=== PATIENT | male | born 1975 | race Caucasian/White ===

== ENCOUNTER 2017-08-04 22:19 | Emergency (ER) | payer OTHER ==
--- OUTSIDE RECORDS SUMMARY | 2017-08-04 22:23 | XMS REPORT ---
:1975 [facility] [address] [place] [address] Care Team Providers Name Role Phone Jenny RANKIN Primary Care Provider Unavailable PANCHO CRAWFORD Unavailable Unavailable Problems This patient has no known problems. Allergies, Adverse Reactions, Alerts This patient has no known allergies or adverse reactions. Medications This patient has no known medications. Results Test Description Test Time Test Comments Text Results Atomic Results Result Comments Valproic Acid (Depakote),S 2016-10-02 05:51:00 Test Item Value Reference Range Comments Valproic Acid (test code=VALP) 77.4 ug/mL 50.0-100.0 RPR, [id number] 12:49:00 Test Item Value Reference Range Comments RPR (test code=RPR) Non-Reactive Non-Reactive Thyroid Stimulating Hormone (TSH)2016-10-01 07:49:00 Test Item Value Reference Range Comments TSH (test code=TSH) 6.31 mIU/mL 0.270-4.200 Lipid [id number] 07:41:00 Test Item Value Reference Range Comments Cholesterol (test 162 mg/dL 0-200 code=CHOL) Triglycerides (test 231 mg/dL 9-200 code=TRIG) HDL (test code=HDL) 36 mg/dL 40-60 Chol/HDL (test 4.5 Ratio 0.0-5.0 code=CHOLPHDL) LDL, Calculated (test 80 0-130 (NOTE)RISK OF HEART code=LDLC) DISEASEPublished by [place] Heart AssociationAnalyte Optimal Boderline Increased RiskCHOL <200 200-239 >240TRIG <150 150-199 >200HDL Male: >60 <40HDL Female: >60 <50LDL <100 130-159 >160LDL NEAR OPTIMAL IS 100-129 VLDL (test code=VLDL) 46 mg/dL 5-40 LDL/HDL (test code=LDLPHDL) 2 [id number] 05:39:00 Test Item Value Reference Range Comments Amphetamine (test Negative Negative For diagnostic purposes code=AMPH) only, positive results should always be assessedin conjunctionwith the patient's medical history,clinical examination and otherfindings.To fulfill legal requirements, a more specific alternate chemical methodmust be used inorder to obtain a Confirmed analytical result. GC/MS is the preferred confirmatory method. Barbiturates (test Negative Negative code=SOL) Benzodiazepine (test Negative Negative code=GUALBERTO) Cocaine (test code=COCA) Negative Negative Methadone (test code=MTHD) Negative Negative Opiates (test code=OPIA) Negative Negative PCP (test code=PCP) Negative Negative Propoxyphene (test Negative Negative code=PROPOX) THC (test code=THC) Negative Negative Alcohol, Urine (test <0.01 g/dL 0.00-0.01 code=ETOHU) Alcohol/Ethanol, [id number] 05:31:00 Test Item Value Reference Range Comments Alcohol, Ethyl (test <0.01 g/dL 0.00-0.01 Intoxicated 0.080 g/dL or code=ETOH) more Comprehensive Metabolic [id number] 05:31:00 Test Item Value Reference Range Comments Sodium (test code=NA) 134 mmol/L 135-145 Potassium (test code=K) 4.4 mmol/L 3.5-5.1 Chloride (test code=CL) 97 mmol/L 98-105 Carbon Dioxide (test 25 mmol/L 22-29 code=CO2) Glucose (test code=GLU) 103 mg/dL 70-115 Blood Urea Nitrogen 14 mg/dL 6-20 (test code=BUN) Creatinine (test 1.3 mg/dL 0.7-1.2 code=CREAT) Calcium (test code=CA) 10.1 mg/dL 8.3-10.5 Prot Total (test 6.6 g/dL 6.4-8.3 code=TP) Albumin (test code=ALB) 4.7 g/dL 3.5-5.2 A/G Ratio (test 2.5 Ratio code=AGRATIO) Globulin (test 1.9 2.9-3.1 code=GLOB) Bili Total (test 0.2 mg/dL 0.1-0.9 code=TBIL) Alk Phos (test 47 U/L 40-129 code=APHOS) AST (test code=AST) 19 U/L 1-40 ALT (test code=ALT) 21 U/L 1-41 BUN/Creatinine Ratio 10.8 (test code=BCRATIO) Anion Gap (test 12 mmol/L 7-16 code=AGAP) Estimated GFR (test >60 eGFR (estimated Glomerular code=GFR) mL/min/1.73m2 Filtration Rate) is an estimated value,calculated from the patient's serum creatinine using the MDRD equation.It is NOT the patient's actual GFR. The eGFR provides a more clinicallyuseful measure of kidney disease than serum creatinine alone.This calculation takes sex and race into account, if the informationis provided. If the race is not provided, and the patient isAfrican-[place], multiply by 1.212. If sex is not provided, and thepatient is female, multiply by 0.742. Results for patients <18 years ofage have not been validated by the MDRD study and should be interpretedwith caution.eGFR Result Interpretation:eGFR > or=60 is in the Normal RangeeGFR < 60 may mean kidney diseaseeGFR < 15 may mean kidney failureRanges recommended by the National Kidney Foundation,http://nkdep.ni h.gov Urinalysis [id number] 05:30:00 Test Item Value Reference Range Comments Color (test code=COLOR) Yellow Yellow,Straw,Pl yellow Clarity (test code=CLAR) Clear Clear Specific [place] (test code=SPGR) 1.006 1.001-1.035 pH (test code=PH) 7.0 5.0-9.0 Ketone (test code=KET) Negative mg/dL Negative Glucose (test code=GLUCUR) Negative mg/dL Negative Protein (test code=PROT) Negative mg/dL Negative Bilirubin (test code=BILI) Negative mg/dL Negative Occult Blood (test code=UDOB) Negative Negative Urobilinogen (test code=UROB) 0.2 mg/dL 0.2-1.0 Nitrite (test code=NIT) Negative Negative Leuk Esterase (test code=LEUK) Negative Negative Micros Exam (test code=MEXAM) Not indicated CBC with [id number] 05:19:00 Test Item Value Reference Range Comments WBC (test code=WBC) 5.5 K/cumm 4.4-10.5 RBC (test code=RBC) 4.70 M/cumm 4.10-5.70 Hemoglobin (test code=HGB) 13.5 gm/dL 13.4-17.4 Hematocrit (test code=HCT) 40.1 % 38.7-52.0 MCV (test code=MCV) 85.2 fL 80-100 MCH (test code=MCH) 28.6 pg 27.0-32.5 MCHC (test code=MCHC) 33.6 g/dL 32.0-37.5 RDW (test code=RDW) 15.0 % 11.5-14.5 Platelet Count (test code=PLTCT) 195 K/cumm 140-440 MPV (test code=MPV) 7.4 fL Diff Method (test code=DIFFM) Auto Neutrophil (test code=NEUT) 52.8 % 36-70 Lymphocyte (test code=LYMPH) 31.2 % 12-44 Monocyte (test code=MONO) 13.7 % 0-11 Eosinophil (test code=EOS) 1.6 % 0-7 Basophil (test code=BASO) 0.7 % 0-2 Neutro Abs (test code=ANEUT) 2.9 K/cumm 1.6-7.4 Lymph Abs (test code=ALYMPH) 1.7 K/cumm 0.5-4.6 [place] Abs (test code=AMONO) 0.8 K/cumm 0.0-1.2 Eos Abs (test code=AEOS) 0.09 K/cumm 0.00-0.74 Baso Abs (test code=ABASO) 0.0 K/cumm 0.00-0.21 CBC with [id number] 10:15:00 Test Item Value Reference Range Comments WBC (test code=WBC) 5.7 K/cumm 4.4-10.5 RBC (test code=RBC) 4.96 M/cumm 4.10-5.70 Hemoglobin (test code=HGB) 14.2 gm/dL 13.4-17.4 Hematocrit (test code=HCT) 41.7 % 38.7-52.0 MCV (test code=MCV) 84.0 fL 80-100 MCH (test code=MCH) 28.6 pg 27.0-32.5 MCHC (test code=MCHC) 34.0 g/dL 32.0-37.5 RDW (test code=RDW) 15.5 % 11.5-14.5 Platelet Count (test code=PLTCT) 186 K/cumm 140-440 MPV (test code=MPV) 8.9 fL Diff Method (test code=DIFFM) Auto Neutrophil (test code=NEUT) 45.0 % 36-70 Lymphocyte (test code=LYMPH) 42.1 % 12-44 Monocyte (test code=MONO) 10.5 % 0-11 Eosinophil (test code=EOS) 1.5 % 0-7 Basophil (test code=BASO) 0.8 % 0-2 Neutro Abs (test code=ANEUT) 2.6 K/cumm 1.6-7.4 Lymph Abs (test code=ALYMPH) 2.4 K/cumm 0.5-4.6 [place] Abs (test code=AMONO) 0.6 K/cumm 0.0-1.2 Eos Abs (test code=AEOS) 0.09 K/cumm 0.00-0.74 Baso Abs (test code=ABASO) 0.1 K/cumm 0.00-0.21 RPR, [id number] 10:10:00 Test Item Value Reference Range Comments RPR (test code=RPR) Non-Reactive Non-Reactive Thyroid Stimulating Hormone (TSH)2016-09-05 09:52:00 Test Item Value Reference Range Comments TSH (test code=TSH) 2.86 mIU/mL 0.270-4.200 Lipid [id number] 09:44:00 Test Item Value Reference Range Comments Cholesterol (test 106 mg/dL 0-200 code=CHOL) Triglycerides (test 167 mg/dL 9-200 code=TRIG) HDL (test code=HDL) 25 mg/dL 40-60 Chol/HDL (test 4.2 Ratio 0.0-5.0 code=CHOLPHDL) LDL, Calculated (test 48 0-130 (NOTE)RISK OF HEART code=LDLC) DISEASEPublished by [place] Heart AssociationAnalyte Optimal Boderline Increased RiskCHOL <200 200-239 >240TRIG <150 150-199 >200HDL Male: >60 <40HDL Female: >60 <50LDL <100 130-159 >160LDL NEAR OPTIMAL IS 100-129 VLDL (test code=VLDL) 33 mg/dL 5-40 LDL/HDL (test code=LDLPHDL) 2 Valproic Acid (Depakote),[id number] 09:44:00 Test Item Value Reference Range Comments Valproic Acid (test code=VALP) 62.7 ug/mL 50.0-100.0 Comprehensive Metabolic [id number] 09:44:00 Test Item Value Reference Range Comments Sodium (test code=NA) 135 mmol/L 135-145 Potassium (test code=K) 4.7 mmol/L 3.5-5.1 Chloride (test code=CL) 100 mmol/L 98-105 Carbon Dioxide (test 25 mmol/L 22-29 code=CO2) Glucose (test code=GLU) 108 mg/dL 70-115 Blood Urea Nitrogen 17 mg/dL 6-20 (test code=BUN) Creatinine (test 1.1 mg/dL 0.7-1.2 code=CREAT) Calcium (test code=CA) 9.4 mg/dL 8.3-10.5 Prot Total (test 6.5 g/dL 6.4-8.3 code=TP) Albumin (test code=ALB) 4.6 g/dL 3.5-5.2 A/G Ratio (test 2.4 Ratio code=AGRATIO) Globulin (test 1.9 2.9-3.1 code=GLOB) Bili Total (test 0.4 mg/dL 0.1-0.9 code=TBIL) Alk Phos (test 46 U/L 40-129 code=APHOS) AST (test code=AST) 23 U/L 1-40 ALT (test code=ALT) 23 U/L 1-41 BUN/Creatinine Ratio 15.5 (test code=BCRATIO) Anion Gap (test 10 mmol/L 7-16 code=AGAP) Estimated GFR (test >60 eGFR (estimated Glomerular code=GFR) mL/min/1.73m2 Filtration Rate) is an estimated value,calculated from the patient's serum creatinine using the MDRD equation.It is NOT the patient's actual GFR. The eGFR provides a more clinicallyuseful measure of kidney disease than serum creatinine alone.This calculation takes sex and race into account, if the informationis provided. If the race is not provided, and the patient isAfrican-[place], multiply by 1.212. If sex is not provided, and thepatient is female, multiply by 0.742. Results for patients <18 years ofage have not been validated by the MDRD study and should be interpretedwith caution.eGFR Result Interpretation:eGFR > or=60 is in the Normal RangeeGFR < 60 may mean kidney diseaseeGFR < 15 may mean kidney failureRanges recommended by the National Kidney Foundation,http://nkdep.ni h.gov Comprehensive Metabolic [id number] 03:26:00 Test Item Value Reference Range Comments Sodium (test code=NA) 137 mmol/L 135-145 Potassium (test code=K) 4.6 mmol/L 3.5-5.1 Chloride (test code=CL) 101 mmol/L 98-105 Carbon Dioxide (test 23 mmol/L 22-29 code=CO2) Glucose (test code=GLU) 104 mg/dL 70-115 Blood Urea Nitrogen 22 mg/dL 6-20 (test code=BUN) Creatinine (test 1.2 mg/dL 0.7-1.2 code=CREAT) Calcium (test code=CA) 9.6 mg/dL 8.3-10.5 Prot Total (test 6.8 g/dL 6.4-8.3 code=TP) Albumin (test code=ALB) 4.8 g/dL 3.5-5.2 A/G Ratio (test 2.4 Ratio code=AGRATIO) Globulin (test 2.0 2.9-3.1 code=GLOB) Bili Total (test 0.4 mg/dL 0.1-0.9 code=TBIL) Alk Phos (test 47 U/L 40-129 code=APHOS) AST (test code=AST) 22 U/L 1-40 ALT (test code=ALT) 22 U/L 1-41 BUN/Creatinine Ratio 18.3 (test code=BCRATIO) Anion Gap (test 13 mmol/L 7-16 code=AGAP) Estimated GFR (test >60 eGFR (estimated Glomerular code=GFR) mL/min/1.73m2 Filtration Rate) is an estimated value,calculated from the patient's serum creatinine using the MDRD equation.It is NOT the patient's actual GFR. The eGFR provides a more clinicallyuseful measure of kidney disease than serum creatinine alone.This calculation takes sex and race into account, if the informationis provided. If the race is not provided, and the patient isAfrican-[place], multiply by 1.212. If sex is not provided, and thepatient is female, multiply by 0.742. Results for patients <18 years ofage have not been validated by the MDRD study and should be interpretedwith caution.eGFR Result Interpretation:eGFR > or=60 is in the Normal RangeeGFR < 60 may mean kidney diseaseeGFR < 15 may mean kidney failureRanges recommended by the National Kidney Foundation,http://nkdep.ni h.gov [id number] 03:06:00 Test Item Value Reference Range Comments Amphetamine (test Negative Negative For diagnostic purposes code=AMPH) only, positive results should always be assessedin conjunctionwith the patient's medical history,clinical examination and otherfindings.To fulfill legal requirements, a more specific alternate chemical methodmust be used inorder to obtain a Confirmed analytical result. GC/MS is the preferred confirmatory method. Barbiturates (test Negative Negative code=SOL) Benzodiazepine (test Negative Negative code=GUALBERTO) Cocaine (test code=COCA) Negative Negative Methadone (test code=MTHD) Negative Negative Opiates (test code=OPIA) Negative Negative PCP (test code=PCP) Negative Negative Propoxyphene (test Negative Negative code=PROPOX) THC (test code=THC) Negative Negative Alcohol, Urine (test <0.01 g/dL 0.00-0.01 code=ETOHU) Troponin [id number] 03:06:00 Test Item Value Reference Range Comments Troponin T (test code=SHAMIKA) <0.010 ng/mL 0.000-0.090 Urinalysis [id number] 02:57:00 Test Item Value Reference Range Comments Color (test code=COLOR) Yellow Yellow,Straw,Pl yellow Clarity (test code=CLAR) Clear Clear Specific [place] (test 1.028 1.001-1.035 code=SPGR) pH (test code=PH) 5.0 5.0-9.0 Ketone (test code=KET) 5 mg/dL Negative Glucose (test code=GLUCUR) Negative mg/dL Negative Protein (test code=PROT) Negative mg/dL Negative Bilirubin (test code=BILI) See IctoTest mg/dL Negative Occult Blood (test Negative Negative code=UDOB) Urobilinogen (test 4.0 mg/dL 0.2-1.0 code=UROB) Nitrite (test code=NIT) Negative Negative Leuk Esterase (test Small Negative code=LEUK) Ictotest (test Confirmed Negative Negative,Confirmed code=ICTOTEST) Negative Micros Exam (test Indicated code=MEXAM) Epithelial Cells (test None /LPF 0-30 code=EPI) WBC, Urine (test code=UWBC) 0-1 /HPF 0-5 RBC, Urine (test code=URBC) None Seen /HPF 0-5 Bacteria (test code=BACT) Few /HPF Crystals (test code=DERRICK) Few Calcium Oxalate /HPF CBC with [id number] 02:43:00 Test Item Value Reference Range Comments WBC (test code=WBC) 6.4 K/cumm 4.4-10.5 RBC (test code=RBC) 4.95 M/cumm 4.10-5.70 Hemoglobin (test code=HGB) 14.4 gm/dL 13.4-17.4 Hematocrit (test code=HCT) 42.0 % 38.7-52.0 MCV (test code=MCV) 84.8 fL 80-100 MCH (test code=MCH) 29.0 pg 27.0-32.5 MCHC (test code=MCHC) 34.2 g/dL 32.0-37.5 RDW (test code=RDW) 15.4 % 11.5-14.5 Platelet Count (test code=PLTCT) 214 K/cumm 140-440 MPV (test code=MPV) 8.4 fL Diff Method (test code=DIFFM) Auto Neutrophil (test code=NEUT) 48.5 % 36-70 Lymphocyte (test code=LYMPH) 38.9 % 12-44 Monocyte (test code=MONO) 10.1 % 0-11 Eosinophil (test code=EOS) 2.0 % 0-7 Basophil (test code=BASO) 0.5 % 0-2 Neutro Abs (test code=ANEUT) 3.1 K/cumm 1.6-7.4 Lymph Abs (test code=ALYMPH) 2.5 K/cumm 0.5-4.6 [place] Abs (test code=AMONO) 0.6 K/cumm 0.0-1.2 Eos Abs (test code=AEOS) 0.13 K/cumm 0.00-0.74 Baso Abs (test code=ABASO) 0.0 K/cumm 0.00-0.21 Valproic Acid (Depakote),[id number] 07:46:00 Test Item Value Reference Range Comments Valproic Acid (test code=VALP) 63.2 ug/mL 50.0-100.0 POC Glucose, [id number] 19:39:00 Test Item Value Reference Range Comments POC Glucose (test 204 mg/dL 70-115 If you consider your patient code=POCGLUC) critically ill, the Ismael Accu-Chek InformII metershould not be used for Glucose determinations.Draw a venous Glucose and send to the Main Lab for Analysis. Comprehensive Metabolic [id number] 05:27:00 Test Item Value Reference Range Comments Sodium (test code=NA) 135 mmol/L 135-145 Potassium (test code=K) 4.3 mmol/L 3.5-5.1 Chloride (test code=CL) 99 mmol/L 98-105 Carbon Dioxide (test 22 mmol/L 22-29 code=CO2) Glucose (test code=GLU) 112 mg/dL 70-115 Blood Urea Nitrogen (test 21 mg/dL 6-20 code=BUN) Creatinine (test 1.8 mg/dL 0.7-1.2 code=CREAT) Calcium (test code=CA) 9.3 mg/dL 8.3-10.5 Prot Total (test code=TP) 7.0 g/dL 6.4-8.3 Albumin (test code=ALB) 4.4 g/dL 3.5-5.2 A/G Ratio (test 1.7 Ratio code=AGRATIO) Globulin (test code=GLOB) 2.6 2.9-3.1 Bili Total (test 0.4 mg/dL 0.1-0.9 code=TBIL) Alk Phos (test 41 U/L 40-129 code=APHOS) AST (test code=AST) 19 U/L 1-40 ALT (test code=ALT) 20 U/L 1-41 BUN/Creatinine Ratio 11.7 (test code=BCRATIO) Anion Gap (test 14 mmol/L 7-16 code=AGAP) Estimated GFR (test 44 mL/min/1.73m2 eGFR (estimated Glomerular code=GFR) Filtration Rate) is an estimated value,calculated from the patient's serum creatinine using the MDRD equation.It is NOT the patient's actual GFR. The eGFR provides a more clinicallyuseful measure of kidney disease than serum creatinine alone.This calculation takes sex and race into account, if the informationis provided. If the race is not provided, and the patient is[place], multiply by 1.212. If sex is not provided, and thepatient is female, multiply by 0.742. Results for patients <18 years ofage have not been validated by the MDRD study and should be interpretedwith caution.eGFR Result Interpretation:eGFR > or=60 is in the Normal RangeeGFR < 60 may mean kidney diseaseeGFR < 15 may mean kidney failureRanges recommended by the National Kidney Foundation,http://nkdep.nih .gov [id number] 05:27:00 Test Item Value Reference Range Comments Amphetamine (test Negative Negative For diagnostic purposes code=AMPH) only, positive results should always be assessedin conjunctionwith the patient's medical history,clinical examination and otherfindings.To fulfill legal requirements, a more specific alternate chemical methodmust be used inorder to obtain a Confirmed analytical result. GC/MS is the preferred confirmatory method. Barbiturates (test Negative Negative code=SOL) Benzodiazepine (test Negative Negative code=GUALBERTO) Cocaine (test code=COCA) Negative Negative Methadone (test code=MTHD) Negative Negative Opiates (test code=OPIA) Negative Negative PCP (test code=PCP) Negative Negative Propoxyphene (test Negative Negative code=PROPOX) THC (test code=THC) Negative Negative Alcohol, Urine (test <0.01 g/dL 0.00-0.01 code=ETOHU) CBC with [id number] 05:08:00 Test Item Value Reference Range Comments WBC (test code=WBC) 7.0 K/cumm 4.4-10.5 RBC (test code=RBC) 4.54 M/cumm 4.10-5.70 Hemoglobin (test code=HGB) 12.5 gm/dL 13.4-17.4 Hematocrit (test code=HCT) 40.8 % 38.7-52.0 MCV (test code=MCV) 90.0 fL 80-100 MCH (test code=MCH) 27.6 pg 27.0-32.5 MCHC (test code=MCHC) 30.7 g/dL 32.0-37.5 RDW (test code=RDW) 14.4 % 11.5-14.5 Platelet Count (test code=PLTCT) 235 K/cumm 140-440 MPV (test code=MPV) 8.2 fL Diff Method (test code=DIFFM) Auto Neutrophil (test code=NEUT) 49.9 % 36-70 Lymphocyte (test code=LYMPH) 39.6 % 12-44 Monocyte (test code=MONO) 8.1 % 0-11 Eosinophil (test code=EOS) 1.7 % 0-7 Basophil (test code=BASO) 0.7 % 0-2 Neutro Abs (test code=ANEUT) 3.5 K/cumm 1.6-7.4 Lymph Abs (test code=ALYMPH) 2.8 K/cumm 0.5-4.6 [place] Abs (test code=AMONO) 0.6 K/cumm 0.0-1.2 Eos Abs (test code=AEOS) 0.12 K/cumm 0.00-0.74 Baso Abs (test code=ABASO) 0.1 K/cumm 0.00-0.21 Urinalysis [id number] 05:07:00 Test Item Value Reference Range Comments Color (test code=COLOR) Straw Yellow,Straw,Pl yellow Clarity (test code=CLAR) Clear Clear Specific [place] (test code=SPGR) 1.005 1.001-1.035 pH (test code=PH) 6.5 5.0-9.0 Ketone (test code=KET) Negative mg/dL Negative Glucose (test code=GLUCUR) Negative mg/dL Negative Protein (test code=PROT) Negative mg/dL Negative Bilirubin (test code=BILI) Negative mg/dL Negative Occult Blood (test code=UDOB) Negative Negative Urobilinogen (test code=UROB) 0.2 mg/dL 0.2-1.0 Nitrite (test code=NIT) Negative Negative Leuk Esterase (test code=LEUK) Negative Negative Micros Exam (test code=MEXAM) Not indicated
[2017-08-04 23:41] LABS: Absolute Lymphocytes (CBC) 2.5 K/uL (0.7-4.9); Absolute Monocytes 0.8 K/uL (0.1-1.3); Absolute Neutrophil 4.4 K/uL (1.8-8.0); Basophils % 0.6 % (0-1.3); Eosinophils % 1.4 % (0-4.4); Lymphocytes % 31.7 % (15.3-44.8); MCH 27.7 pg (27.0-35.0); MPV 8.4 fL (7.6-11.3); Monocytes % 10.3 % (3.3-12.3); RBC Red Blood Cell Count 4.75 M/uL (4.33-5.43)
[2017-08-05 00:03] LABS: Potassium 3.8 mEq/L (3.6-5.0)
[2017-08-05 00:09] LABS: Albumin 3.8 g/dL (3.2-5.5); Bilirubin Direct 0.1 mg/dL (0-0.2); Bilirubin Total 0.8 mg/dL (0.3-1.2); Protein, Total 6.6 g/dL (6.0-8.3)
--- NOTE | 2017-08-05 01:54 | EDPHYS ---
Physician Documentation [facility] Name: Bereket Gardner Age: 42 yrs Sex: Male : 1975 Arrival Date: 08/04/2017 Time: 22:28 Bed 27 Private MD: ED Physician Tariq Correia HPI: 08/05 01:50 This 42 yrs old Male presents to ER via EMS with complaints of Chest pain. pm1 01:50 The patient or guardian reports chest pain that is located primarily in the anterior pm1 chest wall, left. Onset: today. The pain does not radiate. Associated signs and symptoms: Pertinent negatives: abdominal pain, cough, nausea, palpitations, shortness of breath, vomiting. Duration: The patient or guardian reports a single episode, that is still ongoing. Modifying factors: the symptoms are aggravated by deep breath, palpation of area, Movement of left arm. Severity of pain: in the emergency department the pain is unchanged. Historical: - Allergies: 08/04 22:54 Aspirin; rk2 22:54 Ibuprofen; rk2 - PMHx: 22:54 Anemia; Anxiety; Bipolar disorder; enlarged heart and liver; High Cholesterol; rk2 Hypertension; Schizophrenia; - Immunization history:: Pneumococcal vaccine is not up to date, Flu vaccine is not up to date. - Social history:: Smoking status: Patient uses tobacco products, denies chronic smoking, but will smoke occasionally. ROS: 08/05 01:50 Constitutional: Negative for fever, chills, and weight loss, Eyes: Negative for injury, pm1 pain, redness, and discharge, ENT: Negative for injury, pain, and discharge, Neck: Negative for injury, pain, and swelling. Respiratory: Negative for shortness of breath, cough, wheezing, and pleuritic chest pain, Abdomen/GI: Negative for abdominal pain, nausea, vomiting, diarrhea, and constipation, Back: Negative for injury and pain, : Negative for injury, bleeding, discharge, and swelling, MS/Extremity: Negative for injury and deformity, Skin: Negative for injury, rash, and discoloration, Neuro: Negative for headache, weakness, numbness, tingling, and seizure. Cardiovascular: Positive for chest pain, of the left breast. Exam: 01:50 Constitutional: This is a well developed, well nourished patient who is awake, alert, pm1 and in no acute distress. Head/Face: Normocephalic, atraumatic. Eyes: Pupils equal round and reactive to light, extra-ocular motions intact. Lids and lashes normal. Conjunctiva and sclera are non-icteric and not injected. Cornea within normal limits. Periorbital areas with no swelling, redness, or edema. ENT: Nares patent. No nasal discharge, no septal abnormalities noted. Tympanic membranes are normal and external auditory canals are clear. Oropharynx with no redness, swelling, or masses, exudates, or evidence of obstruction, uvula midline. Mucous membranes moist. Neck: Trachea midline, no thyromegaly or masses palpated, and no cervical lymphadenopathy. Supple, full range of motion without nuchal rigidity, or vertebral point tenderness. No Meningismus. 01:50 Cardiovascular: Regular rate and rhythm with a normal S1 and S2. No gallops, murmurs, or rubs. Normal PMI, no JVD. No pulse deficits. Respiratory: Lungs have equal breath sounds bilaterally, clear to auscultation and percussion. No rales, rhonchi or wheezes noted. No increased work of breathing, no retractions or nasal flaring. Abdomen/GI: Soft, non-tender, with normal bowel sounds. No distension or tympany. No guarding or rebound. No evidence of tenderness throughout. Back: No spinal tenderness. No costovertebral tenderness. Full range of motion. Skin: Warm, dry with normal turgor. Normal color with no rashes, no lesions, and no evidence of cellulitis. MS/ Extremity: Pulses equal, no cyanosis. Neurovascular intact. Full, normal range of motion. 01:50 Chest/axilla: Inspection: normal, Palpation: tenderness, that is moderate, of the left breast, that totally reproduces the patient's complaints. 01:50 Neuro: Orientation: is normal, Motor: moves all fours, strength is normal, Gait: is steady, at a normal pace, without difficulty. Vital Signs: 08/04 22:42 BP 122 / 69; Pulse 66; Resp 17; Temp 98.4; Pulse Ox 98% on R/A; rk2 08/05 02:03 BP 128 / 53; Pulse 62; Resp 16; Pulse Ox 98% on R/A; rk2 MDM: 08/04 22:57 Patient medically screened. pm1 08/05 01:52 Data reviewed: vital signs. Data interpreted: Pulse oximetry: on room air is 98 %. pm1 Interpretation: normal. Counseling: I had a detailed discussion with the patient and/or guardian regarding: the historical points, exam findings, and any diagnostic results supporting the discharge/admit diagnosis, lab results, radiology results, the need for outpatient follow up, to return to the emergency department if symptoms worsen or persist or if there are any questions or concerns that arise at home. 08/04 23:15 Order name: Basic Metabolic Panel pm1 08/04 23:15 Order name: CBC with Diff pm1 08/04 23:15 Order name: LFT's pm1 08/04 23:15 Order name: Troponin (emerg Dept Use Only) pm1 08/04 23:43 Order name: CBC with Automated Diff; Complete Time: 01:03 EDMS 08/05 00:04 Order name: Basic Metabolic Panel; Complete Time: 01:03 EDMS 08/04 23:15 Order name: XRAY Chest (1 view) pm1 08/04 23:15 Order name: EKG; Complete Time: 23:16 pm1 08/04 23:15 Order name: Cardiac monitoring; Complete Time: 23:19 pm1 08/04 23:15 Order name: EKG - Nurse/Tech; Complete Time: 23:20 pm1 08/04 23:15 Order name: IV Saline Lock; Complete Time: 23:47 pm1 08/04 23:15 Order name: Labs collected and sent; Complete Time: 23:47 pm1 08/05 00:10 Order name: Liver (Hepatic) Function; Complete Time: 01:03 EDMS 08/05 00:10 Order name: Troponin (Emerg Dept Use Only); Complete Time: 01:03 EDMS 08/04 23:15 Order name: O2 Per Protocol; Complete Time: 23:19 pm1 08/04 23:15 Order name: O2 Sat Monitoring; Complete Time: 23:19 pm1 Administered Medications: No medications were administered Disposition: 08/05/17 01:53 Discharged to Home. Impression: Chest pain, unspecified. - Condition is Stable. - Discharge Instructions: Nonspecific Chest Pain, Chest Wall Pain. - Prescriptions for Cyclobenzaprine 10 mg Oral Tablet - take 1 tablet by ORAL route every 8 hours As needed; 30 tablet. - Medication Reconciliation Form, Thank You Letter, Antibiotic Education, Prescription Opioid Use form. - Follow up: Emergency Department; When: As needed; Reason: Worsening of condition. Follow up: Private Physician; When: 2 - 3 days; Reason: Recheck today's complaints, Continuance of care, Re-evaluation by your physician. - Problem is new. - Symptoms have improved. Addendum: 08/08/2017 06:21 Co-signature as Attending Physician, Tariq Correia MD. g s Signatures: Dispatcher [employer] EDMS Dandre Dale, TREE FELLER TREE FELLER pm1 Tariq Correia MD MD Lexie Cho, RN RN rk2
--- NOTE | 2017-08-05 01:54 | ER ---
Nurse's Notes [facility] Name: Bereket Gardner Age: 42 yrs Sex: Male : 1975 Arrival Date: 08/04/2017 Time: 22:28 Bed 27 Private MD: Diagnosis: Chest pain, unspecified Presentation: 08/04 22:40 Presenting complaint:. rk2 22:42 Presenting complaint: EMS states: Pt. comes from home by EMS c/o tremors after taking rk2 his medication... also states that he had sharp pain in the left side of his chest. Denies radiating pain... onset approx. 2 hours. Pt. also c/o CARTER. Transition of care: patient was not received from another setting of care. Onset of symptoms was August 04, 2017. Care prior to arrival: None. 22:42 Method Of Arrival: EMS: [facility] rk2 22:42 Acuity: ARIA 3 rk2 Triage Assessment: 22:40 General: Appears in no apparent distress. well developed, well nourished, Behavior is rk2 calm, cooperative. 22:40 Pain: Complains of pain in chest. Neuro: Level of Consciousness is alert, obeys rk2 commands, Oriented to person, place, time, situation. Cardiovascular: Rhythm is sinus rhythm. Respiratory: Airway is patent Respiratory effort is even, unlabored, Respiratory pattern is regular, symmetrical. Derm: Skin is pink, warm \T\ dry. Historical: - Allergies: 22:54 Aspirin; rk2 22:54 Ibuprofen; rk2 - PMHx: 22:54 Anemia; Anxiety; Bipolar disorder; enlarged heart and liver; High Cholesterol; rk2 Hypertension; Schizophrenia; - Immunization history:: Pneumococcal vaccine is not up to date, Flu vaccine is not up to date. - Social history:: Smoking status: Patient uses tobacco products, denies chronic smoking, but will smoke occasionally. Screenin:40 Abuse screen: Denies threats or abuse. rk2 22:40 Nutritional screening: No deficits noted. Tuberculosis screening: No symptoms or risk rk2 factors identified. Fall Risk None identified. Assessment: 23:40 Reassessment: Pt. resting in room \T\ this time... appears to be in no obvious distress. rk2 Nobody \T\ bedside with pt. Pt. given warm blanket. Voiced no other needs \T\ this time. 08/05 00:53 Reassessment: Pt. appears to be sleeping in room \T\ this time... No obvious distress. rk2 Pt. voiced no needs. Waiting for disposition. Vital Signs: 08/04 22:42 BP 122 / 69; Pulse 66; Resp 17; Temp 98.4; Pulse Ox 98% on R/A; rk2 08/05 02:03 BP 128 / 53; Pulse 62; Resp 16; Pulse Ox 98% on R/A; rk2 ED Course: 08/04 22:28 Patient arrived in ED. rk2 22:32 Dandre Dale NP is PHCP. pm1 22:32 Tariq Correia MD is Attending Physician. pm1 22:36 Lexie Cho RN is Primary Nurse. rk2 22:40 Patient has correct armband on for positive identification. Bed in low position. Call rk2 light in reach. 22:40 Arm band placed on. rk2 22:44 Triage completed. rk2 23:22 XRAY Chest (1 view) Sent. rk2 23:26 X-ray completed. Portable x-ray completed in exam room. Patient tolerated procedure kw well. 08/05 02:04 No provider procedures requiring assistance completed. IV discontinued. rk2 Administered Medications: No medications were administered Outcome: 01:53 Discharge ordered by . pm1 02:04 Discharged to home ambulatory. rk2 02:04 Condition: good 02:04 Discharge instructions given to patient, Prescriptions given X 1. 02:05 Patient left the ED. rk2 Signatures: Zita Ojeda Patrick, NP METALLURGICAL TECHNICIAN pm1 Lexie Cho, GEMINI RN rk2 Corrections: (The following items were deleted from the chart) 08/04 22:40 22:36 Presenting complaint: rk2 rk2 22:42 22:37 Presenting complaint: Presenting complaint: rk2 rk2 22:45 22:42 BP 122 / 69; Pulse 66bpm; Resp 17bpm; Pulse Ox 98% RA; rk2 rk2
[2017-08-05 02:09] VITALS: TEMP 98.4; O2SAT 98
[2017-08-05 02:10] VITALS: BP 128/53
--- NOTE | 2017-08-05 06:54 | RAD REPORT ---
EXAM DESCRIPTION: RAD - Chest Single View - 08/04/2017 11:31 pm CLINICAL HISTORY: Chest pain COMPARISON: June 28 TECHNIQUE: AP portable chest image was obtained 2319 hours . FINDINGS: Lung volumes are low. Lung base stranding is favored to be atelectasis rather than infiltr ate. Significant change of the lung parenchyma from comparison is not suspected. Heart and vasculatur e are normal. No measurable pleural effusion and no pneumothorax. No gross bony abnormality seen. No acute aortic findings suspected. IMPRESSION: Shallow inspiration film with lung base atelectasis. Repeat imaging with improved inspiratory effort could be performed if patient has any localizing symp toms for early left base pneumonia.
--- NOTE | 2017-08-05 07:34 | EKG ---
Test Date: 2017-08-04 Test Time: 22:51:27 Frothing Machine Operator: CHIP MEASUREMENT RESULTS: Intervals: Rate: 65 NC: 180 QRSD: 88 QT: 412 QTc: 428 [place]: P: 36 NC: 180 QRS: 64 T: 44 INTERPRETIVE STATEMENTS: Normal sinus rhythm Normal ECG Compared to ECG 05/19/2017 01:13:42 Sinus bradycardia no longer present Electronically Signed On 08-05-17 07:33:29 CDT by Eliecer Boyce
== END 2017-08-05 02:05 | disposition home or self-care (01) ==
LOC: ER 22:19
DX: R07.9 Chest pain, unspecified (principal); I10 Essential (primary) hypertension; Z72.0 Tobacco use
CPT/HCPCS: 36415; 71045; 80048; 80076; 84484; 85025; 93005; 99284

== ENCOUNTER 2018-03-19 09:39 | Emergency (ER) | payer OTHER ==
--- OUTSIDE RECORDS SUMMARY | 2018-03-19 09:42 | XMS REPORT ---
:1975 Author Organization [facility] Address [address] [place] [address] Care Team Providers Name Role Phone MADELEINE RANKIN Primary Care Provider Unavailable PANCHO CRAWFORD [...] Acid (test code=VALP) 77.4 ug/mL 50.0-100.0 RPR, [id number] 12:49:00 Test Item Value Reference Range Comments RPR (test code=RPR) Non-Reactive Non-Reactive Thyroid Stimulating Hormone (TSH)2016-10-01 07:49:00 Test Item Value Reference Range Comments TSH (test code=TSH) 6.31 mIU/mL 0.270-4.200 Lipid [id number] 07:41:00 Test Item Value Reference Range Comments Cholesterol (test 162 mg/dL 0-200 code=CHOL) Triglycerides (test 231 mg/dL 9-200 code=TRIG) HDL (test code=HDL) 36 mg/dL 40-60 Chol/HDL (test 4.5 Ratio 0.0-5.0 code=CHOLPHDL) LDL, Calculated (test 80 0-130 (NOTE)RISK OF HEART code=LDLC) DISEASEPublished by Danish Heart AssociationAnalyte Optimal Boderline Increased RiskCHOL <200 200-239 >240TRIG <150 150-199 >200HDL Male: >60 <40HDL Female: >60 <50LDL <100 130-159 >160LDL NEAR OPTIMAL IS 100-129 VLDL (test code=VLDL) 46 mg/dL 5-40 LDL/HDL (test code=LDLPHDL) 2 [id number] 05:39:00 Test Item Value Reference Range Comments Amphetamine (test code=AMPH) Negative Negative For diagnostic purposes only, positive results should always be assessedin conjunctionwith the patient's medical history,clinical examination and otherfindings.To fulfill legal requirements, a more specific alternate chemical methodmust be used inorder to obtain a Confirmed analytical result. GC/MS is the preferred confirmatory method. Barbiturates (test code=SOL) Negative Negative Benzodiazepine (test Negative Negative code=GUALBERTO) Cocaine (test code=COCA) Negative Negative Methadone (test code=MTHD) Negative Negative Opiates (test code=OPIA) Negative Negative PCP (test code=PCP) Negative Negative Propoxyphene (test Negative Negative code=PROPOX) THC (test code=THC) Negative Negative Alcohol, Urine (test <0.01 g/dL 0.00-0.01 code=ETOHU) Alcohol/Ethanol, [id number] 05:31:00 Test Item Value Reference Range Comments Alcohol, Ethyl (test <0.01 g/dL 0.00-0.01 Intoxicated 0.080 g/dL or code=ETOH) more Comprehensive Metabolic [id number] 05:31:00 Test Item Value Reference Range Comments [...] mmol/L 7-16 code=AGAP) Estimated GFR (test >60 mL/min/1.73m2 eGFR (estimated Glomerular code=GFR) Filtration Rate) is an estimated value,calculated from the patient's serum creatinine using the MDRD equation.It is NOT the patient's actual GFR. The eGFR provides a more clinicallyuseful measure of kidney disease than serum creatinine alone.This calculation takes sex and race into account, if the informationis provided. If the race is not provided, and the patient isAfrican-Danish, multiply by 1.212. If sex is not provided, and thepatient is female, multiply by 0.742. Results for patients <18 years ofage have not been validated by the MDRD study and should be interpretedwith caution.eGFR Result Interpretation:eGFR > or=60 is in the Normal RangeeGFR < 60 may mean kidney diseaseeGFR < 15 may mean kidney failureRanges recommended by the National Kidney Foundation,http://nkdep.nih .gov Urinalysis [id number] 05:30:00 Test Item Value Reference Range Comments Color (test code=COLOR) Yellow Yellow,Straw,Pl yellow Clarity (test code=CLAR) Clear Clear Specific [place] (test code=SPGR) 1.006 1.001-1.035 pH (test code=PH) [...] Exam (test code=MEXAM) Not indicated CBC with [id number] 05:19:00 Test Item Value Reference Range Comments [...] Lymph Abs (test code=ALYMPH) 1.7 K/cumm 0.5-4.6 Shannon Abs (test code=AMONO) 0.8 K/cumm 0.0-1.2 Eos Abs (test code=AEOS) 0.09 K/cumm 0.00-0.74 Baso Abs (test code=ABASO) 0.0 K/cumm 0.00-0.21 CBC with [id number] 10:15:00 Test Item Value Reference Range Comments [...] Lymph Abs (test code=ALYMPH) 2.4 K/cumm 0.5-4.6 Shannon Abs (test code=AMONO) 0.6 K/cumm 0.0-1.2 Eos Abs (test code=AEOS) 0.09 K/cumm 0.00-0.74 Baso Abs (test code=ABASO) 0.1 K/cumm 0.00-0.21 RPR, [id number] 10:10:00 Test Item Value Reference Range Comments RPR (test code=RPR) Non-Reactive Non-Reactive Thyroid Stimulating Hormone (TSH)2016-09-05 09:52:00 Test Item Value Reference Range Comments TSH (test code=TSH) 2.86 mIU/mL 0.270-4.200 Lipid [id number] 09:44:00 Test Item Value Reference Range Comments Cholesterol (test 106 mg/dL 0-200 code=CHOL) Triglycerides (test 167 mg/dL 9-200 code=TRIG) HDL (test code=HDL) 25 mg/dL 40-60 Chol/HDL (test 4.2 Ratio 0.0-5.0 code=CHOLPHDL) LDL, Calculated (test 48 0-130 (NOTE)RISK OF HEART code=LDLC) DISEASEPublished by Danish Heart AssociationAnalyte Optimal Boderline Increased RiskCHOL <200 200-239 >240TRIG <150 150-199 >200HDL Male: >60 <40HDL Female: >60 <50LDL <100 130-159 >160LDL NEAR OPTIMAL IS 100-129 VLDL (test code=VLDL) 33 mg/dL 5-40 LDL/HDL (test code=LDLPHDL) 2 Valproic Acid (Depakote),[id number] 09:44:00 Test Item Value Reference Range Comments Valproic Acid (test code=VALP) 62.7 ug/mL 50.0-100.0 Comprehensive Metabolic [id number] 09:44:00 Test Item Value Reference Range Comments [...] mmol/L 7-16 code=AGAP) Estimated GFR (test >60 mL/min/1.73m2 eGFR (estimated Glomerular code=GFR) Filtration Rate) is an estimated value,calculated from the patient's serum creatinine using the MDRD equation.It is NOT the patient's actual GFR. The eGFR provides a more clinicallyuseful measure of kidney disease than serum creatinine alone.This calculation takes sex and race into account, if the informationis provided. If the race is not provided, and the patient isAfrican-Danish, multiply by 1.212. If sex is not provided, and thepatient is female, multiply by 0.742. Results for patients <18 years ofage have not been validated by the MDRD study and should be interpretedwith caution.eGFR Result Interpretation:eGFR > or=60 is in the Normal RangeeGFR < 60 may mean kidney diseaseeGFR < 15 may mean kidney failureRanges recommended by the National Kidney Foundation,http://nkdep.nih .gov Comprehensive Metabolic [id number] 03:26:00 Test Item Value Reference Range Comments [...] mmol/L 7-16 code=AGAP) Estimated GFR (test >60 mL/min/1.73m2 eGFR (estimated Glomerular code=GFR) Filtration Rate) is an estimated value,calculated from the patient's serum creatinine using the MDRD equation.It is NOT the patient's actual GFR. The eGFR provides a more clinicallyuseful measure of kidney disease than serum creatinine alone.This calculation takes sex and race into account, if the informationis provided. If the race is not provided, and the patient isAfrican-Danish, multiply by 1.212. If sex is not provided, and thepatient is female, multiply by 0.742. Results for patients <18 years ofage have not been validated by the MDRD study and should be interpretedwith caution.eGFR Result Interpretation:eGFR > or=60 is in the Normal RangeeGFR < 60 may mean kidney diseaseeGFR < 15 may mean kidney failureRanges recommended by the National Kidney Foundation,http://nkdep.nih .gov [id number] 03:06:00 Test Item Value Reference Range Comments Amphetamine (test code=AMPH) Negative Negative For diagnostic purposes only, positive results should always be assessedin conjunctionwith the patient's medical history,clinical examination and otherfindings.To fulfill legal requirements, a more specific alternate chemical methodmust be used inorder to obtain a Confirmed analytical result. GC/MS is the preferred confirmatory method. Barbiturates (test code=SOL) Negative Negative Benzodiazepine (test Negative Negative code=GUALBERTO) Cocaine (test code=COCA) Negative Negative Methadone (test code=MTHD) Negative Negative Opiates (test code=OPIA) Negative Negative PCP (test code=PCP) Negative Negative Propoxyphene (test Negative Negative code=PROPOX) THC (test code=THC) Negative Negative Alcohol, Urine (test <0.01 g/dL 0.00-0.01 code=ETOHU) Troponin [id number] 03:06:00 Test Item Value Reference Range Comments Troponin T (test code=SHAMIKA) <0.010 ng/mL 0.000-0.090 Urinalysis [id number] 02:57:00 Test Item Value Reference Range Comments Color (test code=COLOR) Yellow Yellow,Straw,Pl yellow Clarity (test code=CLAR) Clear Clear Specific [place] (test 1.028 1.001-1.035 code=SPGR) pH (test code=PH) [...] code=DERRICK) Few Calcium Oxalate /HPF CBC with [id number] 02:43:00 Test Item Value Reference Range Comments [...] Lymph Abs (test code=ALYMPH) 2.5 K/cumm 0.5-4.6 Shannon Abs (test code=AMONO) 0.6 K/cumm 0.0-1.2 Eos Abs (test code=AEOS) 0.13 K/cumm 0.00-0.74 Baso Abs (test code=ABASO) 0.0 K/cumm 0.00-0.21 Valproic Acid (Depakote),[id number] 07:46:00 Test Item Value Reference Range Comments Valproic Acid (test code=VALP) 63.2 ug/mL 50.0-100.0 POC Glucose, [id number] 19:39:00 Test Item Value Reference Range Comments POC Glucose (test 204 mg/dL 70-115 If you consider your patient code=POCGLUC) critically ill, the Ismael Accu-Chek InformII metershould not be used for Glucose determinations.Draw a venous Glucose and send to the Main Lab for Analysis. Comprehensive Metabolic [id number] 05:27:00 Test Item Value Reference Range Comments [...] race is not provided, and the patient isAfrican-Danish, multiply by 1.212. If sex is not provided, and thepatient is female, multiply by 0.742. Results for patients <18 years ofage have not been validated by the MDRD study and should be interpretedwith caution.eGFR Result Interpretation:eGFR > or=60 is in the Normal RangeeGFR < 60 may mean kidney diseaseeGFR < 15 may mean kidney failureRanges recommended by the National Kidney Foundation,http://nkdep.nih .gov [id number] 05:27:00 Test Item Value Reference Range Comments Amphetamine (test code=AMPH) Negative Negative For diagnostic purposes only, positive results should always be assessedin conjunctionwith the patient's medical history,clinical examination and otherfindings.To fulfill legal requirements, a more specific alternate chemical methodmust be used inorder to obtain a Confirmed analytical result. GC/MS is the preferred confirmatory method. Barbiturates (test code=SOL) Negative Negative Benzodiazepine (test Negative Negative code=GUALBERTO) Cocaine (test code=COCA) Negative Negative Methadone (test code=MTHD) Negative Negative Opiates (test code=OPIA) Negative Negative PCP (test code=PCP) Negative Negative Propoxyphene (test Negative Negative code=PROPOX) THC (test code=THC) Negative Negative Alcohol, Urine (test <0.01 g/dL 0.00-0.01 code=ETOHU) CBC with [id number] 05:08:00 Test Item Value Reference Range Comments [...] Lymph Abs (test code=ALYMPH) 2.8 K/cumm 0.5-4.6 Shannon Abs (test code=AMONO) 0.6 K/cumm 0.0-1.2 Eos Abs (test code=AEOS) 0.12 K/cumm 0.00-0.74 Baso Abs (test code=ABASO) 0.1 K/cumm 0.00-0.21 Urinalysis [id number] 05:07:00 Test Item Value Reference Range Comments Color (test code=COLOR) Straw Yellow,Straw,Pl yellow Clarity (test code=CLAR) Clear Clear Specific [place] (test code=SPGR) 1.005 1.001-1.035 pH (test code=PH) [...]
[2018-03-19 10:32] LABS: Barbiturates NEGATIVE (NEGATIVE); Benzodiazepines NEGATIVE (NEGATIVE); Cocaine NEGATIVE (NEGATIVE); METHAMPHETAM NEGATIVE (NEGATIVE); Methadone NEGATIVE (NEGATIVE); Opiates NEGATIVE (NEGATIVE); Phencyclidine NEGATIVE (NEGATIVE); THC Cannibis NEGATIVE (NEGATIVE)
[2018-03-19 10:43] LABS: Urine Blood NEGATIVE (NEG); Urine Glucose NEGATIVE (NEG); Urine Protein NEGATIVE (NEG)
[2018-03-19 10:54] LABS: Absolute Lymphocytes (CBC) 2.2 K/uL (0.7-4.9); Absolute Monocytes 0.9 K/uL (0.1-1.3); Absolute Neutrophil 5.5 K/uL (1.8-8.0); Basophils % 0.6 % (0-1.3); Eosinophils % 1.4 % (0-4.4); Hematocrit 47.6 % (39.6-49.0); Lymphocytes % 25.1 % (15.3-44.8); MCH 30.7 pg (27.0-35.0); MCV 90.2 fL (80-100); MPV 8.6 fL (7.6-11.3); Monocytes % 10.8 % (3.3-12.3); RBC Red Blood Cell Count 5.28 M/uL (4.33-5.43)
[2018-03-19 10:58] LABS: Protime INR 1.01
[2018-03-19 12:05] LABS: ALT/SGPT 37 U/L (12-78); AST/SGOT 23 U/L (15-37); Albumin 3.9 g/dL (3.4-5.0); Alkaline Phosphatase 71 U/L (45-117); BUN Blood Urea Nitrogen 15 mg/dL (7-18); Bicarbonate 29 mmol/L (21-32); Bilirubin Direct 0.1 mg/dL (0-0.2); Bilirubin Total 0.4 mg/dL (0.2-1.0); Glucose Level 93 mg/dL (74-106); Potassium 4.2 mmol/L (3.5-5.1); Protein, Total 7.4 g/dL (6.4-8.2); Sodium Level 140 mmol/L (136-145)
--- NOTE | 2018-03-19 17:13 | EDPHYS ---
Physician Documentation [facility] Name: Bereket Gardner Age: 43 yrs Sex: Male : 1975 Arrival Date: 03/19/2018 Time: 09:43 Bed 18 Private MD: ED Physician Juan Rivas HPI: 03/19 11:51 This 43 yrs old Male presents to ER via EMS with complaints of Overdose, rn Suicidal Ideation. 11:52 Onset: The symptoms/episode began/occurred at an unknown time. Severity of symptoms:. rn The patient has experienced similar episodes in the past, chronically. 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 Denies suicidal or homicidal ideation. Has paranoid schizophrenia, takes meds, no apparent acute changes. Sister here and states she cannot watch him and worries about him, goes out late at night, and does drugs, and hangs out with wrong people so wants him admitted to rehab.. Historical: - Allergies: 09:52 Aspirin; sv 09:52 Ibuprofen; sv - PMHx: 09:52 Anemia; Anxiety; Bipolar disorder; enlarged heart and liver; High Cholesterol; sv Hypertension; Schizophrenia; - Immunization history:: Adult Immunizations up to date, Flu vaccine is not up to date. - Social history:: Smoking status: Patient/guardian denies using tobacco, Patient/guardian denies using alcohol, street drugs. - Ebola Screening: : No symptoms or risks identified at this time. - Family history:: not pertinent. - Hospitalizations: : No recent hospitalization is reported. ROS: 11:52 Constitutional: Negative for fever, chills, and weight loss, Eyes: Negative for injury, rn pain, redness, and discharge, ENT: Negative for injury, pain, and discharge, Cardiovascular: Negative for chest pain, palpitations, and edema, Respiratory: Negative for shortness of breath, cough, wheezing, and pleuritic chest pain, Abdomen/GI: Negative for abdominal pain, nausea, vomiting, diarrhea, and constipation, MS/Extremity: Negative for injury and deformity, Skin: Negative for injury, rash, and discoloration, Neuro: Negative for headache, weakness, numbness, tingling, and seizure, Psych: Negative for suicide ideation, homicidal ideation, + hallucinations Exam: 11:52 Constitutional: This is a well developed, well nourished patient who is awake, alert, rn and in no acute distress. Head/Face: Normocephalic, atraumatic. Eyes: Pupils equal round and reactive to light, extra-ocular motions intact. Lids and lashes normal. Conjunctiva and sclera are non-icteric and not injected. Cornea within normal limits. Periorbital areas with no swelling, redness, or edema. Cardiovascular: Regular rate and rhythm with a normal S1 and S2. No gallops, murmurs, or rubs. Normal PMI, no JVD. No pulse deficits. Respiratory: Lungs have equal breath sounds bilaterally, clear to auscultation and percussion. No rales, rhonchi or wheezes noted. No increased work of breathing, no retractions or nasal flaring. Abdomen/GI: Soft, non-tender, with normal bowel sounds. No distension or tympany. No guarding or rebound. No evidence of tenderness throughout. Skin: Warm, dry with normal turgor. Normal color with no rashes, no lesions, and no evidence of cellulitis. MS/ Extremity: Pulses equal, no cyanosis. Neurovascular intact. Full, normal range of motion. Equal circumference. Neuro: Awake and alert, GCS 15, oriented to person, place, time, and situation. Cranial nerves II-XII grossly intact. Motor strength 5/5 in all extremities. Sensory grossly intact. Cerebellar exam normal. Normal gait. Vital Signs: 09:52 BP 100 / 84; Pulse 75; Resp 16; Temp 97.8; Pulse Ox 99% ; Weight 61.23 kg; Height 5 ft. sv 5 in. (165.10 cm); 12:47 BP 112 / 79; Pulse 74; Resp 18; Pulse Ox 99% on R/A; aj 16:02 BP 109 / 75; Pulse 78; Resp 18; Pulse Ox 99% on R/A; aj 18:39 BP 113 / 78; Pulse 79; Resp 16; Pulse Ox 98% on R/A; aj 09:52 Body Mass Index 22.46 (61.23 kg, 165.10 cm) sv MDM: 09:53 Patient medically screened. rn 17:08 Differential diagnosis: depression, psychosis secondary to non-compliance. Data rn reviewed: vital signs, nurses notes, lab test result(s), and as a result, I will admit patient. Counseling: I had a detailed discussion with the patient and/or guardian regarding: the historical points, exam findings, and any diagnostic results supporting the discharge/admit diagnosis, lab results, the need to transfer to another facility. ED course: Accepted for transfer to [facility] . 03/19 10:00 Order name: Acetaminophen; Complete Time: 12:44 rn 03/19 10:00 Order name: Basic Metabolic Panel; Complete Time: 12:44 rn 03/19 10:00 Order name: CBC with Diff; Complete Time: 12:44 rn 03/19 10:00 Order name: ETOH Level; Complete Time: 12:44 rn 03/19 10:00 Order name: Hepatic Function; Complete Time: 12:44 rn 03/19 10:00 Order name: PT-INR; Complete Time: 12:44 rn 03/19 10:00 Order name: Ptt, Activated; Complete Time: 12:44 rn 03/19 10:00 Order name: Salicylate; Complete Time: 12:44 rn 03/19 10:00 Order name: Urine Drug Screen; Complete Time: 12:44 rn 03/19 10:00 Order name: EKG; Complete Time: 10: rn 03/19 10:00 Order name: EKG - Nurse/Tech; Complete Time: 10:28 rn 03/19 10:00 Order name: IV Saline Lock; Complete Time: 12:13 rn 03/19 10:24 Order name: Urine Dipstick--Ancillary (enter results); Complete Time: 12:44 eb 03/19 15:02 Order name: Diet Regular; Complete Time: 15:02 aj 03/19 10:00 Order name: Labs collected and sent; Complete Time: 12:13 rn 03/19 10:00 Order name: Urine Dipstick-Ancillary (obtain specimen); Complete Time: 10:28 rn Administered Medications: No medications were administered Disposition: 03/19/18 17:13 Transfer ordered to [facility]. Diagnosis is Schizophrenia, unspecified. - Reason for transfer: Higher level of care. - Accepting physician is . - Condition is Stable. - Problem is new. - Symptoms have improved. Signatures: [facility] Sheryl Reeves RN Juan Segal MD MD rn Davies, Jonathon, RN RN jd3 Corrections: (The following items were deleted from the chart) 19:41 17:13 03/19/2018 17:13 Transfer ordered to Psych Facility. Diagnosis is Schizophrenia, jd3 unspecified. Reason for transfer: Higher level of care. Accepting physician is . Condition is Stable. Problem is new. Symptoms have improved. rn
--- NOTE | 2018-03-19 17:13 | ER ---
Nurse's Notes [facility] Name: Bereket Gardner Age: 43 yrs Sex: Male : 1975 Arrival Date: 03/19/2018 Time: 09:43 Bed 18 Private MD: Diagnosis: Schizophrenia, unspecified Presentation: 03/19 09:37 Presenting complaint: EMS states: pt called PD and told them he took "a bottle of sv Depakote, Remeron, Vistaril." and then the pt told EMS he only took about 4 pills of each. Pt told me that he only took his medications as prescribed and not overdose on them, denies suicidal ideation or homicidal ideation. A\\T\\O x4, BS-95 BP 124/86. Transition of care: patient was not received from another setting of care. Onset of symptoms was March 18, 2018. Risk Assessment: Do you want to hurt yourself or someone else? Patient reports no desire to harm self or others. Initial Sepsis Screen: Does the patient meet any 2 criteria? No. Patient's initial sepsis screen is negative. Does the patient have a suspected source of infection? No. Patient's initial sepsis screen is negative. Care prior to arrival: None. 09:37 Method Of Arrival: EMS: [facility] sv 09:37 Acuity: ARIA 2 sv Triage Assessment: 09:37 General: Appears in no apparent distress. comfortable, Behavior is calm, cooperative, sv appropriate for age. Pain: Denies pain. EENT: No signs and/or symptoms were reported regarding the EENT system. Neuro: Level of Consciousness is awake, alert, obeys commands, Oriented to person, place, time, situation, Moves all extremities. Full function Gait is steady, Speech is normal. Respiratory: Respiratory effort is even, unlabored, Respiratory pattern is regular, symmetrical. GI: No signs and/or symptoms were reported involving the gastrointestinal system. : No signs and/or symptoms were reported regarding the genitourinary system. Derm: Skin is normal. Musculoskeletal: No signs and/or symptoms reported regarding the musculoskeletal system. Historical: - Allergies: 09:52 Aspirin; sv 09:52 Ibuprofen; sv - PMHx: 09:52 Anemia; Anxiety; Bipolar disorder; enlarged heart and liver; High Cholesterol; sv Hypertension; Schizophrenia; - Immunization history:: Adult Immunizations up to date, Flu vaccine is not up to date. - Social history:: Smoking status: Patient/guardian denies using tobacco, Patient/guardian denies using alcohol, street drugs. - Ebola Screening: : No symptoms or risks identified at this time. - Family history:: not pertinent. - Hospitalizations: : No recent hospitalization is reported. Screenin:09 Abuse screen: Denies threats or abuse. Denies injuries from another. Nutritional aj screening: No deficits noted. Tuberculosis screening: No symptoms or risk factors identified. Fall Risk None identified. Assessment: 10:09 General: Appears in no apparent distress. comfortable, Behavior is calm, cooperative, aj appropriate for age. Pain: Denies pain. Neuro: Level of Consciousness is awake, alert, obeys commands, Oriented to person, place, time, situation, Appropriate for age. Respiratory: Airway is patent Respiratory effort is even, unlabored, Respiratory pattern is regular, symmetrical. GI: Abdomen is flat, Patient currently denies normal bowel habits. Derm: Skin is intact, is healthy with good turgor, Skin is pink, warm \\T\\ dry. normal. 10:39 Reassessment: Patient's sister arrived and stated "He is mentally ill and needs help. aj He needs to be in a rehab or something. They have put him in a detention but he doesn't follow their rules so they kick him out. He went and got his medications from my dad's house the other day, I don't know if he took any of them. He told me last Friday that he doesn't want to be around anymore. 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 He didn't tell them what he said to me last Friday.". 10:47 Reassessment: Patient's sister approached nurses station and stated "I'm going to have aj to leave soon, I take care of my dad and he is home alone." Patient's sister informed that I spoke with the physician and told him she was waiting in the room to speak with him. Informed her that the physician was currently with another patient and would be in to speak with her as soon as possible. 14:25 Reassessment: [facility]. bp 15:27 Reassessment: Patient appears in no apparent distress at this time. No changes from aj previously documented assessment. Patient and/or family updated on plan of care and expected duration. Pain level reassessed. Patient is alert, oriented x 3, equal unlabored respirations, skin warm/dry/pink. Patient denies pain at this time. 16:02 Reassessment: Patient provided with meal tray. Asked to use phone at nurses station to aj call family. 18:10 Reassessment: Patient stated "I'm going to step outside and look for my sister, she is aj coming up here to see me before I go." Patient urged to remain in ER. Patient chose to step outside. Denies suicidal or homicidal ideations at this time. 18:39 Reassessment: Patient appears in no apparent distress at this time. No changes from aj previously documented assessment. Patient and/or family updated on plan of care and expected duration. Pain level reassessed. Patient is alert, oriented x 3, equal unlabored respirations, skin warm/dry/pink. Patient returned to room and is watching TV in NAD. Patient denies pain at this time. 19:20 Reassessment: Patient appears in no apparent distress at this time. No changes from jd3 previously documented assessment. Patient and/or family updated on plan of care and expected duration. Pain level reassessed. Patient is alert, oriented x 3, equal unlabored respirations, skin warm/dry/pink. 19:40 Reassessment: report given to [facility]. jd3 Psych: 09:54 Subjective: Delusions are synagogue, Hallucinations are auditory, visual, Denies sv suicidal and homicidal ideation. Pt states "I see people and the devil talks to me but God is going to get me through it." Pt stated that he has been seeing his PCP Dr Rodríguez in [place] and she told him to come to the ER and then the Mental Health deputy will take him to [facility] to be admitted. Pt received an Invega shot yesterday and he just knows he needs to get help. Objective: Patient is cooperative, Speech is normal, Affect is appropriate. Interventions: Patient placed in hospital gown. Suicide Risk Assessment: Sad Person Scale: Sex of patient: Male: Score 1 point. Age of patient: Score 0 point if patient falls outside of specified age parameters. Depression: Score 0 point if signs of depression are not present. Substance Abuse: Score 0 point if patient does not abuse alcohol or drugs. Rational Thinking: Score 0 point if patient has rational thinking. Social Support: Score 1 point if social support is lacking and/or unavailable. Organized Plan: Score 0 if patient did not have an organized plan in place. Relationship: Score 1 point if patient is , , , or for a single male Chronic Sickness: Score 1 point if patient has illness, chronic, debilitating, or severe. TOTAL POINTS: If total points are 3-4, proposed clinical action is close follow-up/consider hospitalization. Pt denies substance abuse. Commitment: Patient will be a voluntary commitment. 19:38 Safety Checks: Personal items have not been removed. Door is open. No visitors are jd3 present at this time. sitter present. Overdose: 09:53 Patient took Depakote, Remeron, and Vistaril as prescribed and did not take any more sv than what was prescribed. Vital Signs: 09:52 BP 100 / 84; Pulse 75; Resp 16; Temp 97.8; Pulse Ox 99% ; Weight 61.23 kg; Height 5 ft. sv 5 in. (165.10 cm); 12:47 BP 112 / 79; Pulse 74; Resp 18; Pulse Ox 99% on R/A; aj 16:02 BP 109 / 75; Pulse 78; Resp 18; Pulse Ox 99% on R/A; aj 18:39 BP 113 / 78; Pulse 79; Resp 16; Pulse Ox 98% on R/A; aj 09:52 Body Mass Index 22.46 (61.23 kg, 165.10 cm) sv ED Course: 09:43 Patient arrived in ED. aa5 09:48 Triage completed. sv 09:52 Arm band placed on Patient placed in an exam room, on a stretcher, on pulse oximetry. sv 09:53 Juan Rivas MD is Attending Physician. rn 09:55 Warm blanket given. Head of bed elevated. sv 10:08 Jannie Najera, GEMINI is Primary Nurse. aj 10:09 Patient has correct armband on for positive identification. Placed in gown. Call light aj in reach. Side rails up X 1. Pulse ox on. NIBP on. 10:11 Report given to Jannie SINGLETARY. sv 10:26 Urine collected: clean catch specimen, clear. mh5 10:27 Urine Drug Screen Sent. mh5 10:27 Urine Dipstick--Ancillary (enter results) Sent. [facility] 10:45 Notified ED physician of other Patient's family is in room waiting to speak with him. aj 11:13 EKG done, by senior quality technician. reviewed by Juan Rivas MD. at1 13:15 called and spoke with Sugey at the [facility]/ she will page out a screener on eb call to come screen the patient for potential transfer . 13:[address] [facility] Called and said she would be on her way shortly. eb 14:58 faxed patient records to the following facilities in the attempt to initiate a transfer eb : [facility], [facility]. [facility], [facility], [facility], [facility], [facility], [facility], [facility], [facility], [facility] and [facility]. 15:37 refaxed patient information to [facility] to a different fax number at [phone]. eb 15:38 connected the [facility] nurse with ED nurse for patient transfer consultation. eb 15:39 Report given to Mary Jane at [facility]. aj 18:39 No provider procedures requiring assistance completed. Patient did not have IV access aj during this emergency room visit. Administered Medications: No medications were administered Outcome: 17:13 ER care complete, transfer ordered by . rn 19:37 Transferred by ground EMS Note: transferred to [facility] jd3 19:37 Condition: stable 19:37 Instructed on the need for transfer, Demonstrated understanding of instructions. 19:41 Patient left the ED. jd3 Signatures: Sheryl Chaves, Jannie Saleem RN, RN RN aj Nieto, Roman, MD MD rn Calderon, Audri, RN RN aa5 Gonzales, Amanda, paper stripper EKG Tat1 Glenny Stover Jonathon, RN RN jd3 Peltier, Brian RN Tia Montanez eb
[2018-03-19 19:46] VITALS: TEMP 97.8
[2018-03-19 19:49] VITALS: BP 113/78; O2SAT 98
--- NOTE | 2018-03-19 22:08 | EKG ---
Test Date: 2018-03-19 Test Time: 10:29:24 [employer] Serv[employer]: LIN MEASUREMENT RESULTS: Intervals: Rate: 66 NM: 158 QRSD: 84 QT: 388 QTc: 406 [place]: P: 38 NM: 158 QRS: 81 T: 58 INTERPRETIVE STATEMENTS: Normal sinus rhythm Normal ECG Compared to ECG 08/04/2017 22:51:27 No significant changes Electronically Signed On 03-19-18 22:08:19 CDT by Eliecer Boyce
== END 2018-03-19 19:41 ==
LOC: ER 09:39
DX: F20.9 Schizophrenia, unspecified (principal); I10 Essential (primary) hypertension; Z88.6 Allergy status to analgesic agent
CPT/HCPCS: 36415; 80048; 80076; 80307; 80320; 80329; 81003; 85025; 85610; 85730; 93005; 99285

== ENCOUNTER 2018-04-02 21:11 | Emergency (ER) | payer OTHER ==
--- OUTSIDE RECORDS SUMMARY | 2018-04-02 21:14 | XMS REPORT ---
:1975 [facility] Address [address] [place] [address] [address]. Zun[address] [place] [address] Care Team Providers Name Role Phone MADELEINE [...] Acid (test code=VALP) 77.4 ug/mL 50.0-100.0 RPR, [id number] 12:49:00 Test Item Value Reference Range Comments RPR (test code=RPR) Non-Reactive Non-Reactive Thyroid Stimulating Hormone (TSH)2016-10-01 07:49:00 Test Item Value Reference Range Comments TSH (test code=TSH) 6.31 mIU/mL 0.270-4.200 Lipid [id number] 07:41:00 Test Item Value Reference Range Comments Cholesterol (test 162 mg/dL 0-200 code=CHOL) Triglycerides (test 231 mg/dL 9-200 code=TRIG) HDL (test code=HDL) 36 mg/dL 40-60 Chol/HDL (test 4.5 Ratio 0.0-5.0 code=CHOLPHDL) LDL, Calculated (test 80 0-130 (NOTE)RISK OF HEART code=LDLC) DISEASEPublished by Sudanese Heart AssociationAnalyte Optimal Boderline Increased RiskCHOL <200 200-239 >240TRIG <150 150-199 >200HDL Male: >60 <40HDL Female: >60 <50LDL <100 130-159 >160LDL NEAR OPTIMAL IS 100-129 VLDL (test code=VLDL) 46 mg/dL 5-40 LDL/HDL (test code=LDLPHDL) 2 [id number] 05:39:00 Test Item Value Reference Range Comments [...] Urine (test <0.01 g/dL 0.00-0.01 code=ETOHU) Alcohol/Ethanol, [id number] 05:31:00 Test Item Value Reference Range Comments Alcohol, Ethyl (test <0.01 g/dL 0.00-0.01 Intoxicated 0.080 g/dL or code=ETOH) more Comprehensive Metabolic [id number] 05:31:00 Test Item Value Reference Range Comments [...] race is not provided, and the patient isAfrican-Sudanese, multiply by 1.212. If sex is not provided, and thepatient is female, multiply by 0.742. Results for patients <18 years ofage have not been validated by the MDRD study and should be interpretedwith caution.eGFR Result Interpretation:eGFR > or=60 is in the Normal RangeeGFR < 60 may mean kidney diseaseeGFR < 15 may mean kidney failureRanges recommended by the National Kidney Foundation,http://nkdep.nih .gov Urinalysis [id number] 05:30:00 Test Item Value Reference Range Comments Color (test code=COLOR) Yellow Yellow,Straw,Pl yellow Clarity (test code=CLAR) Clear Clear Specific Chama (test code=SPGR) 1.006 1.001-1.035 pH (test code=PH) [...] Exam (test code=MEXAM) Not indicated CBC with [id number] 05:19:00 Test Item Value Reference Range Comments [...] Lymph Abs (test code=ALYMPH) 1.7 K/cumm 0.5-4.6 [place] Abs (test code=AMONO) 0.8 K/cumm 0.0-1.2 Eos Abs (test code=AEOS) 0.09 K/cumm 0.00-0.74 Baso Abs (test code=ABASO) 0.0 K/cumm 0.00-0.21 CBC with [id number] 10:15:00 Test Item Value Reference Range Comments [...] Lymph Abs (test code=ALYMPH) 2.4 K/cumm 0.5-4.6 [place] Abs (test code=AMONO) 0.6 K/cumm 0.0-1.2 Eos Abs (test code=AEOS) 0.09 K/cumm 0.00-0.74 Baso Abs (test code=ABASO) 0.1 K/cumm 0.00-0.21 RPR, [id number] 10:10:00 Test Item Value Reference Range Comments RPR (test code=RPR) Non-Reactive Non-Reactive Thyroid Stimulating Hormone (TSH)2016-09-05 09:52:00 Test Item Value Reference Range Comments TSH (test code=TSH) 2.86 mIU/mL 0.270-4.200 Lipid [id number] 09:44:00 Test Item Value Reference Range Comments Cholesterol (test 106 mg/dL 0-200 code=CHOL) Triglycerides (test 167 mg/dL 9-200 code=TRIG) HDL (test code=HDL) 25 mg/dL 40-60 Chol/HDL (test 4.2 Ratio 0.0-5.0 code=CHOLPHDL) LDL, Calculated (test 48 0-130 (NOTE)RISK OF HEART code=LDLC) DISEASEPublished by Sudanese Heart AssociationAnalyte Optimal Boderline Increased RiskCHOL <200 200-239 >240TRIG <150 150-199 >200HDL Male: >60 <40HDL Female: >60 <50LDL <100 130-159 >160LDL NEAR OPTIMAL IS 100-129 VLDL (test code=VLDL) 33 mg/dL 5-40 LDL/HDL (test code=LDLPHDL) 2 Valproic Acid (Depakote),[id number] 09:44:00 Test Item Value Reference Range Comments Valproic Acid (test code=VALP) 62.7 ug/mL 50.0-100.0 Comprehensive Metabolic [id number] 09:44:00 Test Item Value Reference Range Comments [...] race is not provided, and the patient isAfrican-Sudanese, multiply by 1.212. If sex is not [...] the National Kidney Foundation,http://nkdep.nih .gov Comprehensive Metabolic [id number] 03:26:00 Test Item Value Reference Range Comments [...] race is not provided, and the patient isAfrican-Sudanese, multiply by 1.212. If sex is not provided, and thepatient is female, multiply by 0.742. Results for patients <18 years ofage have not been validated by the MDRD study and should be interpretedwith caution.eGFR Result Interpretation:eGFR > or=60 is in the Normal RangeeGFR < 60 may mean kidney diseaseeGFR < 15 may mean kidney failureRanges recommended by the National Kidney Foundation,http://nkdep.nih .gov [id number] 03:06:00 Test Item Value Reference Range Comments [...] Urine (test <0.01 g/dL 0.00-0.01 code=ETOHU) Troponin [id number] 03:06:00 Test Item Value Reference Range Comments Troponin T (test code=SHAMIKA) <0.010 ng/mL 0.000-0.090 Urinalysis [id number] 02:57:00 Test Item Value Reference Range Comments Color (test code=COLOR) Yellow Yellow,Straw,Pl yellow Clarity (test code=CLAR) Clear Clear Specific [place] (test 1.028 1.001-1.035 code=SPGR) pH (test code=PH) [...] code=DERRICK) Few Calcium Oxalate /HPF CBC with [id number] 02:43:00 Test Item Value Reference Range Comments [...] Lymph Abs (test code=ALYMPH) 2.5 K/cumm 0.5-4.6 [place] Abs (test code=AMONO) 0.6 K/cumm 0.0-1.2 Eos Abs (test code=AEOS) 0.13 K/cumm 0.00-0.74 Baso Abs (test code=ABASO) 0.0 K/cumm 0.00-0.21 Valproic Acid (Depakote),[id number] 07:46:00 Test Item Value Reference Range Comments Valproic Acid (test code=VALP) 63.2 ug/mL 50.0-100.0 POC Glucose, [id number] 19:39:00 Test Item Value Reference Range Comments POC Glucose (test 204 mg/dL 70-115 If you consider your patient code=POCGLUC) critically ill, the Ismael Accu-Chek InformII metershould not be used for Glucose determinations.Draw a venous Glucose and send to the Main Lab for Analysis. Comprehensive Metabolic [id number] 05:27:00 Test Item Value Reference Range Comments [...] race is not provided, and the patient isAfrican-Sudanese, multiply by 1.212. If sex is not provided, and thepatient is female, multiply by 0.742. Results for patients <18 years ofage have not been validated by the MDRD study and should be interpretedwith caution.eGFR Result Interpretation:eGFR > or=60 is in the Normal RangeeGFR < 60 may mean kidney diseaseeGFR < 15 may mean kidney failureRanges recommended by the National Kidney Foundation,http://nkdep.nih .gov [id number] 05:27:00 Test Item Value Reference Range Comments [...] (test <0.01 g/dL 0.00-0.01 code=ETOHU) CBC with [id number] 05:08:00 Test Item Value Reference Range Comments [...] Lymph Abs (test code=ALYMPH) 2.8 K/cumm 0.5-4.6 [place] Abs (test code=AMONO) 0.6 K/cumm 0.0-1.2 Eos Abs (test code=AEOS) 0.12 K/cumm 0.00-0.74 Baso Abs (test code=ABASO) 0.1 K/cumm 0.00-0.21 Urinalysis [id number] 05:07:00 Test Item Value Reference Range Comments Color (test code=COLOR) Straw Yellow,Straw,Pl yellow Clarity (test code=CLAR) Clear Clear Specific Ch[place] (test code=SPGR) 1.005 1.001-1.035 pH (test code=PH) [...]
[2018-04-03] MEDS ORDERED: FENTANYL CITR 100 MCG/2 ML ONE (00:53)
[2018-04-03] MEDS ORDERED: FAMOTIDINE 20 MG/2 ML VIAL IV ONE (00:54)
[2018-04-03] MEDS ORDERED: ONDANSETRON 4 MG/2 ML VIAL ONE (00:54)
[2018-04-03] MEDS ORDERED: NA CHLORIDE 0.9% 1,000 ML ONE (00:54)
[2018-04-03 00:57] LABS: Absolute Monocytes 0.9 K/uL (0.1-1.3); Absolute Neutrophil 5.6 K/uL (1.8-8.0); Basophils % 0.6 % (0-1.3); Eosinophils % 2.7 % (0-4.4); Hematocrit 45.1 % (39.6-49.0); Lymphocytes % 36.7 % (15.3-44.8); MCH 30.2 pg (27.0-35.0); MCV 89.5 fL (80-100); MPV 8.1 fL (7.6-11.3); RBC Red Blood Cell Count 5.04 M/uL (4.33-5.43)
[2018-04-03 01:14] LABS: Albumin 3.8 g/dL (3.4-5.0); Bilirubin Direct 0.1 mg/dL (0-0.2); Bilirubin Total 0.4 mg/dL (0.2-1.0); Protein, Total 7.3 g/dL (6.4-8.2)
[2018-04-03 01:23] LABS: Urine Blood NEGATIVE (NEG); Urine Glucose NEGATIVE (NEG); Urine Protein NEGATIVE (NEG); Urine Specific Gravity 1.015 (1.005-1.030)
--- NOTE | 2018-04-03 02:54 | EDPHYS ---
Physician Documentation [facility] Name: Bereket Gardner Age: 43 yrs Sex: Male : 1975 Arrival Date: 04/02/2018 Time: 21:14 Bed 16 Private MD: ED Physician Stuart Dumont HPI: 04/03 00:22 This 43 yrs old Male presents to ER via EMS with complaints of Abdominal Pain.florentin 00:22 The patient presents with abdominal pain. Onset: The symptoms/episode began/occurred 2 florentin day(s) ago. The symptoms do not radiate. Associated signs and symptoms: none. The symptoms are described as constant, crampy. Severity of pain: At its worst the pain was moderate in the emergency department the pain is unchanged. The patient has not experienced similar symptoms in the past. Historical: - Allergies: 04/02 21:22 Aspirin; aj 21:22 Ibuprofen; aj - Home Meds: 21:22 Depakote 500 mg Oral TbEC 1 tab 1 am and 2 at night [Active]; fenofibrate 145 MG Oral aj once daily [Active]; hydroxyzine HCl 50 mg Oral tab 2 tabs three times a day [Active]; trazodone 50 mg Oral tab 1 tab nightly [Active]; Invega oral oral [Active]; Risperdal Oral [Active]; - PMHx: 21:22 Anemia; Anxiety; Bipolar disorder; enlarged heart and liver; High Cholesterol; aj Hypertension; Schizophrenia; - Immunization history:: Adult Immunizations up to date. - Social history:: Smoking status: Patient uses tobacco products, smokes one pack cigarettes per day. - Ebola Screening: : Patient negative for fever greater than or equal to 101.5 degrees Fahrenheit, and additional compatible Ebola Virus Disease symptoms Patient denies exposure to infectious person Patient denies travel to an Ebola-affected area in the 21 days before illness onset No symptoms or risks identified at this time. - Family history:: not pertinent. ROS: 04/03 00:22 Constitutional: Negative for fever, chills, and weight loss, Eyes: Negative for injury, florentin pain, redness, and discharge, ENT: Negative for injury, pain, and discharge, Neck: Negative for injury, pain, and swelling, Cardiovascular: Negative for chest pain, palpitations, and edema, Respiratory: Negative for shortness of breath, cough, wheezing, and pleuritic chest pain, Back: Negative for injury and pain, : Negative for injury, bleeding, discharge, and swelling, MS/Extremity: Negative for injury and deformity, Skin: Negative for injury, rash, and discoloration, Neuro: Negative for headache, weakness, numbness, tingling, and seizure, Psych: Negative for depression, anxiety, suicide ideation, homicidal ideation, and hallucinations, Allergy/Immunology: Negative for hives, rash, and allergies, Endocrine: Negative for neck swelling, polydipsia, polyuria, polyphagia, and marked weight changes, Hematologic/Lymphatic: Negative for swollen nodes, abnormal bleeding, and unusual bruising. Abdomen/GI: Positive for abdominal pain, of the right upper quadrant, left upper quadrant, right lower quadrant and left lower quadrant. Exam: 00:22 Constitutional: This is a well developed, well nourished patient who is awake, alert, florentin and in no acute distress. Head/Face: Normocephalic, atraumatic. Eyes: Pupils equal round and reactive to light, extra-ocular motions intact. Lids and lashes normal. Conjunctiva and sclera are non-icteric and not injected. Cornea within normal limits. Periorbital areas with no swelling, redness, or edema. ENT: Nares patent. No nasal discharge, no septal abnormalities noted. Tympanic membranes are normal and external auditory canals are clear. Oropharynx with no redness, swelling, or masses, exudates, or evidence of obstruction, uvula midline. Mucous membranes moist. Neck: Trachea midline, no thyromegaly or masses palpated, and no cervical lymphadenopathy. Supple, full range of motion without nuchal rigidity, or vertebral point tenderness. No Meningismus. Chest/axilla: Normal chest wall appearance and motion. Nontender with no deformity. No lesions are appreciated. Cardiovascular: Regular rate and rhythm with a normal S1 and S2. No gallops, murmurs, or rubs. Normal PMI, no JVD. No pulse deficits. Respiratory: Lungs have equal breath sounds bilaterally, clear to auscultation and percussion. No rales, rhonchi or wheezes noted. No increased work of breathing, no retractions or nasal flaring. Back: No spinal tenderness. No costovertebral tenderness. Full range of motion. Male : Normal genitalia with no discharge or lesions. Skin: Warm, dry with normal turgor. Normal color with no rashes, no lesions, and no evidence of cellulitis. MS/ Extremity: Pulses equal, no cyanosis. Neurovascular intact. Full, normal range of motion. Neuro: Awake and alert, GCS 15, oriented to person, place, time, and situation. Cranial nerves II-XII grossly intact. Motor strength 5/5 in all extremities. Sensory grossly intact. Cerebellar exam normal. Normal gait. Psych: Awake, alert, with orientation to person, place and time. Behavior, mood, and affect are within normal limits. 00:22 Abdomen/GI: Inspection: abdomen appears normal, Bowel sounds: normal, Palpation: moderate abdominal tenderness, in the right upper quadrant, left upper quadrant, right lower quadrant and left lower quadrant, Liver: no appreciated palpable abnormalities, Hernia: not appreciated. Vital Signs: 04/02 21:22 BP 125 / 73; Pulse 94; Resp 20; Temp 98.3; Pulse Ox 97% on R/A; Weight 79.38 kg; Height aj 5 ft. 5 in. (165.10 cm); 22:49 BP 99 / 58; Pulse 81; Resp 17; Temp 98.2(O); Pulse Ox 97% on R/A; rr5 04/03 00:30 BP 103 / 55; Pulse 79; Resp 18; Pulse Ox 97% on R/A; lp1 03:30 BP 130 / 87; Pulse 82; Resp 18; Pulse Ox 99% on R/A; lp1 04/02 21:22 Body Mass Index 29.12 (79.38 kg, 165.10 cm) aj MDM: 00:10 Patient medically screened. [facility] 00:25 Data reviewed: vital signs, nurses notes, lab test result(s), radiologic studies, CT florentin scan. 04/03 00:22 Order name: Basic Metabolic Panel; Complete Time: 02:12 [facility] 04/03 00:22 Order name: CBC with Diff; Complete Time: 02:12 [facility] 04/03 00:22 Order name: Creatinine for Radiology; Complete Time: 02:12 [facility] 04/03 00:22 Order name: Hepatic Function; Complete Time: 02:12 [facility] 04/03 00:22 Order name: Lipase; Complete Time: 02:12 [facility] 04/03 00:25 Order name: Urine Dipstick--Ancillary (enter results); Complete Time: 02:12 ms 04/03 00:22 Order name: IV Saline Lock; Complete Time: 01: florentin 04/03 00:22 Order name: Labs collected and sent; Complete Time: : florentin 04/03 00:25 Order name: CT Abd/Pelvis - W/Contrast florentin Administered Medications: 01:05 Drug: NS 0.9% 1000 ml Route: IV; Rate: 1 bolus; Site: left antecubital; rr5 02:30 Follow up: IV Status: Completed infusion; IV Intake: 1000ml lp1 01:06 Drug: fentaNYL (PF) 25 mcg Route: IVP; Site: left antecubital; rr5 03:33 Follow up: Response: Pain is decreased lp1 01:08 Drug: Zofran 4 mg Route: IVP; Site: left antecubital; rr5 03:34 Follow up: Response: No adverse reaction lp1 01:10 Drug: Pepcid 20 mg Route: IVP; Site: left antecubital; rr5 03:34 Follow up: Response: No adverse reaction lp1 Disposition: 04/03/18 02:53 Discharged to Home. Impression: Abdominal tenderness. - Condition is Stable. - Discharge Instructions: Abdominal Pain, Adult, Bipolar Disorder, Abdominal Pain, Adult, Kvnt-ph-[id number]. - Prescriptions for Bentyl 20 mg Oral Tablet - take 1 tablet by ORAL route every 6 hours As needed; 20 tablet. Pepcid 20 mg Oral Tablet - take 1 tablet by ORAL route every 12 hours for 10 days; 20 tablet. Zofran 4 mg Oral Tablet - take 1 tablet by ORAL route every 12 hours As needed; 20 tablet. - Medication Reconciliation Form, Thank You Letter, Antibiotic Education, Prescription Opioid Use form. - Follow up: Emergency Department; When: 2 - 3 days; Reason: Recheck today's complaints, Continuance of care, Re-evaluation by your physician. Follow up: Private Physician; When: 2 - 3 days; Reason: Recheck today's complaints, Continuance of care, Re-evaluation by your physician. - Problem is new. - Symptoms have improved. Signatures: Dispatcher [employer] EDJannie Gómez RN RN aj Anderson, Corey, MD MD cha Pena, Laura, RN RN lp1 Garcia Menjivar RN RN rr5 Corrections: (The following items were deleted from the chart) 02:56 02:53 04/03/2018 02:53 Discharged to Home. Impression: Chest pain, unspecified. florentin Condition is Stable. Forms are Medication Reconciliation Form, Thank You Letter, Antibiotic Education, Prescription Opioid Use. Follow up: Emergency Department; When: 2 - 3 days; Reason: Recheck today's complaints, Continuance of care, Re-evaluation by your physician. Problem is new. Symptoms have improved. [facility] 02:58 02:56 04/03/2018 02:53 Discharged to Home. Impression: Abdominal tenderness. Condition florentin is Stable. Forms are Medication Reconciliation Form, Thank You Letter, Antibiotic Education, Prescription Opioid Use. Follow up: Emergency Department; When: 2 - 3 days; Reason: Recheck today's complaints, Continuance of care, Re-evaluation by your physician. Problem is new. Symptoms have improved. [facility] 03:34 02:58 04/03/2018 02:53 Discharged to Home. Impression: Abdominal tenderness. Condition lp1 is Stable. Forms are Medication Reconciliation Form, Thank You Letter, Antibiotic Education, Prescription Opioid Use. Follow up: Emergency Department; When: 2 - 3 days; Reason: Recheck today's complaints, Continuance of care, Re-evaluation by your physician. Follow up: Private Physician; When: 2 - 3 days; Reason: Recheck today's complaints, Continuance of care, Re-evaluation by your physician. Problem is new. Symptoms have improved. florentin
--- NOTE | 2018-04-03 02:54 | ER ---
Nurse's Notes [facility] Name: Bereket Gardner Age: 43 yrs Sex: Male : 1975 Arrival Date: 04/02/2018 Time: 21:14 Bed 16 Private MD: Diagnosis: Abdominal tenderness Presentation: 04/02 21:21 Presenting complaint: Patient states: LUQ cramping and vomiting with cough today. aj Transition of care: patient was not received from another setting of care. Onset of symptoms was April 02, 2018. Risk Assessment: Do you want to hurt yourself or someone else? Patient reports no desire to harm self or others. Initial Sepsis Screen: Does the patient meet any 2 criteria? No. Patient's initial sepsis screen is negative. Does the patient have a suspected source of infection? No. Patient's initial sepsis screen is negative. Care prior to arrival: None. 21:21 Method Of Arrival: EMS: [facility] aj 21:21 Acuity: ARIA 3 aj Triage Assessment: 21:22 General: Appears in no apparent distress. comfortable, Behavior is calm, cooperative, aj appropriate for age. Pain: Complains of pain in left upper quadrant. Neuro: Level of Consciousness is awake, alert, obeys commands, Oriented to person, place, time, situation, Appropriate for age. Respiratory: Airway is patent Respiratory effort is even, unlabored, Respiratory pattern is regular, symmetrical. Respiratory: Reports cough that is. GI: Reports upper abdominal pain, nausea, vomiting. Derm: Skin is intact, is healthy with good turgor, Skin is pink, warm \T\ dry. normal. Historical: - Allergies: 21:22 Aspirin; aj 21:22 Ibuprofen; aj - Home Meds: 21:22 Depakote 500 mg Oral TbEC 1 tab 1 am and 2 at night [Active]; fenofibrate 145 MG Oral aj once daily [Active]; hydroxyzine HCl 50 mg Oral tab 2 tabs three times a day [Active]; trazodone 50 mg Oral tab 1 tab nightly [Active]; Invega oral oral [Active]; Risperdal Oral [Active]; - PMHx: 21:22 Anemia; Anxiety; Bipolar disorder; enlarged heart and liver; High Cholesterol; aj Hypertension; Schizophrenia; - Immunization history:: Adult Immunizations up to date. - Social history:: Smoking status: Patient uses tobacco products, smokes one pack cigarettes per day. - Ebola Screening: : Patient negative for fever greater than or equal to 101.5 degrees Fahrenheit, and additional compatible Ebola Virus Disease symptoms Patient denies exposure to infectious person Patient denies travel to an Ebola-affected area in the 21 days before illness onset No symptoms or risks identified at this time. - Family history:: not pertinent. Screenin:58 Abuse screen: Denies threats or abuse. Denies injuries from another. Nutritional rr5 screening: No deficits noted. Tuberculosis screening: No symptoms or risk factors identified. Fall Risk None identified. Assessment: 22:30 General: Appears in no apparent distress. comfortable, Behavior is calm, cooperative, rr5 appropriate for age. Pain: Complains of pain in left upper quadrant Pain does not radiate. Pain at worst was 8 out of 10 on a pain scale. Quality of pain is described as aching. 22:30 Neuro: Level of Consciousness is awake, alert, obeys commands, Oriented to person, rr5 place, time, situation. Cardiovascular: Capillary refill < 3 seconds Patient's skin is warm and dry. Respiratory: Airway is patent Respiratory effort is even, unlabored, Respiratory pattern is regular, symmetrical. GI: Bowel sounds present X 4 quads. Abd is soft X 4 quads. :. EENT: No signs and/or symptoms were reported regarding the EENT system. Derm: No signs and/or symptoms reported regarding the dermatologic system. Skin is intact, Skin is dry, Skin is pink, warm \T\ dry. Musculoskeletal: Capillary refill < 3 seconds, Range of motion: intact in all extremities. 23:30 Reassessment: Patient appears in no apparent distress at this time. Patient and/or lp1 family updated on plan of care and expected duration. Pain level reassessed. Patient resting, eyes closed, respirations unlabored. 04/03 02:30 Reassessment: Patient appears in no apparent distress at this time. No changes from lp1 previously documented assessment. Patient and/or family updated on plan of care and expected duration. Pain level reassessed. 03:30 Reassessment: Patient resting, eyes closed, respirations unlabored on arrival to room. 1 Vital Signs: 04/02 21:22 BP 125 / 73; Pulse 94; Resp 20; Temp 98.3; Pulse Ox 97% on R/A; Weight 79.38 kg; Height aj 5 ft. 5 in. (165.10 cm); 22:49 BP 99 / 58; Pulse 81; Resp 17; Temp 98.2(O); Pulse Ox 97% on R/A; rr5 04/03 00:30 BP 103 / 55; Pulse 79; Resp 18; Pulse Ox 97% on R/A; lp1 03:30 BP 130 / 87; Pulse 82; Resp 18; Pulse Ox 99% on R/A; lp1 04/02 21:22 Body Mass Index 29.12 (79.38 kg, 165.10 cm) aj ED Course: 04/02 21:14 Patient arrived in ED. ds1 21:21 Triage completed. aj 21:22 Arm band placed on left wrist. Patient placed in waiting room, Patient notified of wait aj time. 22:47 Garcia Menjivar RN is Primary Nurse. rr5 22:58 Patient has correct armband on for positive identification. Bed in low position. Call rr5 light in reach. 04/03 00:10 Stuart Dumont MD is Attending Physician. florentin 00:45 Inserted saline lock: 20 gauge in left antecubital area, using aseptic technique. Blood ds4 collected. 02:[address] via wheelchair. kw1 02:15 CT Abd/Pelvis - W/Contrast In Process Unspecified. EDMS 02:16 CT completed. Patient tolerated procedure well. Patient moved back from CT. kw1 Administered Medications: 01:05 Drug: NS 0.9% 1000 ml Route: IV; Rate: 1 bolus; Site: left antecubital; rr5 02:30 Follow up: IV Status: Completed infusion; IV Intake: 1000ml lp1 01:06 Drug: fentaNYL (PF) 25 mcg Route: IVP; Site: left antecubital; rr5 03:33 Follow up: Response: Pain is decreased lp1 01:08 Drug: Zofran 4 mg Route: IVP; Site: left antecubital; rr5 03:34 Follow up: Response: No adverse reaction lp1 01:10 Drug: Pepcid 20 mg Route: IVP; Site: left antecubital; rr5 03:34 Follow up: Response: No adverse reaction lp1 Intake: 02:30 IV: 1000ml; Total: 1000ml. lp1 Outcome: 02:53 Discharge ordered by . florentin 03:34 Patient left the ED. lp1 Signatures: Dispatcher [employer] EDJannie Gómez, RN Stuart Montague MD MD cha Sanford, Demi ds1 Iveth Almeida RN RN lp1 Brendon Trejo ds4 Lindsey Traylor kw1 Garcia Menjivar RN RN rr5
[2018-04-03 05:04] VITALS: TEMP 98.2
[2018-04-03 05:07] VITALS: BP 130/87; O2SAT 99
--- NOTE | 2018-04-03 08:40 | RAD REPORT ---
EXAM DESCRIPTION: CTAbdomen Pelvis W Contrast - 04/03/2018 5:52 am CLINICAL HISTORY: Abdominal pain. ABD PAIN COMPARISON: CT ABD PELVIS W CONTRAST dated 07/06/2012 TECHNIQUE: Biphasic CT imaging of the abdomen and pelvis was performed with 100 ml non-ionic IV cont rast. All CT scans are performed using dose optimization technique as appropriate and may include automated exposure control or mA/KV adjustment according to patient size. FINDINGS: The lung bases are clear. The liver demonstrates small benign-appearing cysts, unchanged. No aggressive liver lesion. Cholecyst ectomy clips are present. Spleen, pancreas, adrenal glands and kidneys are within normal limits. No p athologic biliary dilatation seen. No bowel obstruction, free air, free fluid or abscess. The appendix is normal. No evidence of signi ficant lymphadenopathy. No suspicious bony findings. IMPRESSION: No acute intra-abdominal or pelvic finding.
== END 2018-04-03 03:34 | disposition home or self-care (01) ==
LOC: ER 21:11
DX: R10.819 Abdominal tenderness, unspecified site (principal); F17.210 Nicotine dependence, cigarettes, uncomplicated; I10 Essential (primary) hypertension; F31.9 Bipolar disorder, unspecified; Z88.6 Allergy status to analgesic agent
CPT/HCPCS: 36415; 74177; 80048; 80076; 81003; 83690; 85025; 96361; 96374; 96375; 99284; J2405; J3010; J7030; Q9967

== ENCOUNTER 2018-05-29 21:30 | Emergency (ER) | payer OTHER ==
--- OUTSIDE RECORDS SUMMARY | 2018-05-29 21:33 | XMS REPORT ---
:1975 [facility] Address [address] [place] [address] Dr. Zuniga [address] [place] [address] Care Team Providers Name Role Phone MADELEINE [...] Acid (test code=VALP) 77.4 ug/mL 50.0-100.0 RPR, [id number] 12:49:00 Test Item Value Reference Range Comments RPR (test code=RPR) Non-Reactive Non-Reactive Thyroid Stimulating Hormone (TSH)2016-10-01 07:49:00 Test Item Value Reference Range Comments TSH (test code=TSH) 6.31 mIU/mL 0.270-4.200 Lipid [id number] 07:41:00 Test Item Value Reference Range Comments Cholesterol (test 162 mg/dL 0-200 code=CHOL) Triglycerides (test 231 mg/dL 9-200 code=TRIG) HDL (test code=HDL) 36 mg/dL 40-60 Chol/HDL (test 4.5 Ratio 0.0-5.0 code=CHOLPHDL) LDL, Calculated (test 80 0-130 (NOTE)RISK OF HEART code=LDLC) DISEASEPublished by Polish Heart AssociationAnalyte Optimal Boderline Increased RiskCHOL <200 200-239 >240TRIG <150 150-199 >200HDL Male: >60 <40HDL Female: >60 <50LDL <100 130-159 >160LDL NEAR OPTIMAL IS 100-129 VLDL (test code=VLDL) 46 mg/dL 5-40 LDL/HDL (test code=LDLPHDL) 2 [id number] 05:39:00 Test Item Value Reference Range Comments [...] Urine (test <0.01 g/dL 0.00-0.01 code=ETOHU) Alcohol/Ethanol, [id number] 05:31:00 Test Item Value Reference Range Comments Alcohol, Ethyl (test <0.01 g/dL 0.00-0.01 Intoxicated 0.080 g/dL or code=ETOH) more Comprehensive Metabolic [id number] 05:31:00 Test Item Value Reference Range Comments [...] race is not provided, and the patient isAfrican-Polish, multiply by 1.212. If sex is not provided, and thepatient is female, multiply by 0.742. Results for patients <18 years ofage have not been validated by the MDRD study and should be interpretedwith caution.eGFR Result Interpretation:eGFR > or=60 is in the Normal RangeeGFR < 60 may mean kidney diseaseeGFR < 15 may mean kidney failureRanges recommended by the National Kidney Foundation,http://nkdep.nih .gov Urinalysis [id number] 05:30:00 Test Item Value Reference Range Comments Color (test code=COLOR) Yellow Yellow,Straw,Pl yellow Clarity (test code=CLAR) Clear Clear Specific [place] (test code=SPGR) 1.006 1.001-1.035 pH (test code=PH) [...] Exam (test code=MEXAM) Not indicated CBC with [id number] 05:19:00 Test Item Value Reference Range Comments [...] Lymph Abs (test code=ALYMPH) 1.7 K/cumm 0.5-4.6 Alpine Abs (test code=AMONO) 0.8 K/cumm 0.0-1.2 Eos Abs (test code=AEOS) 0.09 K/cumm 0.00-0.74 Baso Abs (test code=ABASO) 0.0 K/cumm 0.00-0.21 CBC with [id number] 10:15:00 Test Item Value Reference Range Comments [...] Lymph Abs (test code=ALYMPH) 2.4 K/cumm 0.5-4.6 Alpine Abs (test code=AMONO) 0.6 K/cumm 0.0-1.2 Eos Abs (test code=AEOS) 0.09 K/cumm 0.00-0.74 Baso Abs (test code=ABASO) 0.1 K/cumm 0.00-0.21 RPR, [id number] 10:10:00 Test Item Value Reference Range Comments RPR (test code=RPR) Non-Reactive Non-Reactive Thyroid Stimulating Hormone (TSH)2016-09-05 09:52:00 Test Item Value Reference Range Comments TSH (test code=TSH) 2.86 mIU/mL 0.270-4.200 Lipid [id number] 09:44:00 Test Item Value Reference Range Comments Cholesterol (test 106 mg/dL 0-200 code=CHOL) Triglycerides (test 167 mg/dL 9-200 code=TRIG) HDL (test code=HDL) 25 mg/dL 40-60 Chol/HDL (test 4.2 Ratio 0.0-5.0 code=CHOLPHDL) LDL, Calculated (test 48 0-130 (NOTE)RISK OF HEART code=LDLC) DISEASEPublished by Polish Heart AssociationAnalyte Optimal Boderline Increased RiskCHOL <200 200-239 >240TRIG <150 150-199 >200HDL Male: >60 <40HDL Female: >60 <50LDL <100 130-159 >160LDL NEAR OPTIMAL IS 100-129 VLDL (test code=VLDL) 33 mg/dL 5-40 LDL/HDL (test code=LDLPHDL) 2 Valproic Acid (Depakote),[id number] 09:44:00 Test Item Value Reference Range Comments Valproic Acid (test code=VALP) 62.7 ug/mL 50.0-100.0 Comprehensive Metabolic [id number] 09:44:00 Test Item Value Reference Range Comments [...] race is not provided, and the patient isAfrican-Polish, multiply by 1.212. If sex is not [...] the National Kidney Foundation,http://nkdep.nih .gov Comprehensive Metabolic [id number] 03:26:00 Test Item Value Reference Range Comments [...] race is not provided, and the patient isAfrican-Polish, multiply by 1.212. If sex is not provided, and thepatient is female, multiply by 0.742. Results for patients <18 years ofage have not been validated by the MDRD study and should be interpretedwith caution.eGFR Result Interpretation:eGFR > or=60 is in the Normal RangeeGFR < 60 may mean kidney diseaseeGFR < 15 may mean kidney failureRanges recommended by the National Kidney Foundation,http://nkdep.nih .gov [id number] 03:06:00 Test Item Value Reference Range Comments [...] Urine (test <0.01 g/dL 0.00-0.01 code=ETOHU) Troponin [id number] 03:06:00 Test Item Value Reference Range Comments Troponin T (test code=SHAMIKA) <0.010 ng/mL 0.000-0.090 Urinalysis [id number] 02:57:00 Test Item Value Reference Range Comments Color (test code=COLOR) Yellow Yellow,Straw,Pl yellow Clarity (test code=CLAR) Clear Clear Specific [place] (test 1.028 1.001-1.035 code=SPGR) pH (test code=PH) [...] code=DERRICK) Few Calcium Oxalate /HPF CBC with [id number] 02:43:00 Test Item Value Reference Range Comments [...] Lymph Abs (test code=ALYMPH) 2.5 K/cumm 0.5-4.6 Alpine Abs (test code=AMONO) 0.6 K/cumm 0.0-1.2 Eos Abs (test code=AEOS) 0.13 K/cumm 0.00-0.74 Baso Abs (test code=ABASO) 0.0 K/cumm 0.00-0.21 Valproic Acid (Depakote),[id number] 07:46:00 Test Item Value Reference Range Comments Valproic Acid (test code=VALP) 63.2 ug/mL 50.0-100.0 POC Glucose, [id number] 19:39:00 Test Item Value Reference Range Comments POC Glucose (test 204 mg/dL 70-115 If you consider your patient code=POCGLUC) critically ill, the Ismael Accu-Chek InformII metershould not be used for Glucose determinations.Draw a venous Glucose and send to the Main Lab for Analysis. Comprehensive Metabolic [id number] 05:27:00 Test Item Value Reference Range Comments [...] race is not provided, and the patient isAfrican-Polish, multiply by 1.212. If sex is not provided, and thepatient is female, multiply by 0.742. Results for patients <18 years ofage have not been validated by the MDRD study and should be interpretedwith caution.eGFR Result Interpretation:eGFR > or=60 is in the Normal RangeeGFR < 60 may mean kidney diseaseeGFR < 15 may mean kidney failureRanges recommended by the National Kidney Foundation,http://nkdep.nih .gov [id number] 05:27:00 Test Item Value Reference Range Comments [...] (test <0.01 g/dL 0.00-0.01 code=ETOHU) CBC with [id number] 05:08:00 Test Item Value Reference Range Comments [...] Lymph Abs (test code=ALYMPH) 2.8 K/cumm 0.5-4.6 Alpine Abs (test code=AMONO) 0.6 K/cumm 0.0-1.2 Eos Abs (test code=AEOS) 0.12 K/cumm 0.00-0.74 Baso Abs (test code=ABASO) 0.1 K/cumm 0.00-0.21 Urinalysis [id number] 05:07:00 Test Item Value Reference Range Comments Color (test code=COLOR) Straw Yellow,Straw,Pl yellow Clarity (test code=CLAR) Clear Clear Specific [place] (test code=SPGR) 1.005 1.001-1.035 pH (test code=PH) [...]
--- NOTE | 2018-05-29 22:53 | ER ---
Nurse's Notes [facility] Name: Bereket Gardner Age: 43 yrs Sex: Male : 1975 Arrival Date: 05/29/2018 Time: 21:35 Bed 24 Private MD: Diagnosis: Sprain of ankle;Sprain of foot;Sprain of other specified parts of knee Presentation: 05/29 21:36 Presenting complaint: EMS states: "He tripped over a parking block. No LOC, no head jd3 injury, just reporting right ankle pain.". Transition of care: patient was not received from another setting of care. Onset of symptoms was May 29, 2018. Risk Assessment: Do you want to hurt yourself or someone else? Patient reports no desire to harm self or others. Initial Sepsis Screen: Does the patient meet any 2 criteria? No. Patient's initial sepsis screen is negative. Does the patient have a suspected source of infection? No. Patient's initial sepsis screen is negative. Care prior to arrival: None. 21:36 Method Of Arrival: EMS: [facility] jd3 21:36 Acuity: ARIA 4 jd3 Historical: - Allergies: 21:39 Aspirin; jd3 21:39 Ibuprofen; jd3 - Home Meds: 21:39 Depakote 500 mg Oral TbEC 1 tab 1 am and 2 at night [Active]; fenofibrate 145 MG Oral jd3 once daily [Active]; hydroxyzine HCl 50 mg Oral tab 2 tabs three times a day [Active]; Invega Oral [Active]; Risperdal Oral [Active]; trazodone 50 mg Oral tab 1 tab nightly [Active]; - PMHx: 21:39 Anemia; enlarged heart and liver; Bipolar disorder; Schizophrenia; High Cholesterol; jd3 Hypertension; Anxiety; - PSHx: 21:39 Cholecystectomy; jd3 - Immunization history:: Adult Immunizations unknown. - Social history:: Smoking status: Patient uses tobacco products, smokes one-half pack cigarettes per day. - Ebola Screening: : Patient negative for fever greater than or equal to 101.5 degrees Fahrenheit, and additional compatible Ebola Virus Disease symptoms. - Family history:: not pertinent. Screenin:44 Abuse screen: Denies threats or abuse. Nutritional screening: No deficits noted. jd3 Tuberculosis screening: No symptoms or risk factors identified. Fall Risk Fall in past 12 months (25 points). Ambulatory Aid- None/Bed Rest/Nurse Assist (0 pts). Gait- Normal/Bed Rest/Wheelchair (0 pts) Mental Status- Oriented to own ability (0 pts). Total Calvin Fall Scale indicates Low Risk Score (25-44 pts). Fall prevention measures have been instituted. Side Rails Up X 2 Placed close to Nursing Station Frequent Obs/Assesments occuring. Assessment: 21:42 General: Appears in no apparent distress. Behavior is calm, cooperative, appropriate jd3 for age. Pain: Complains of pain in right ankle Quality of pain is described as aching. Neuro: Level of Consciousness is awake, alert, obeys commands, Oriented to person, place, time, situation, Gait is steady. Cardiovascular: Capillary refill < 3 seconds Patient's skin is warm and dry. Respiratory: Airway is patent Respiratory effort is even, unlabored, Respiratory pattern is regular, symmetrical. GI: No signs and/or symptoms were reported involving the gastrointestinal system. : No signs and/or symptoms were reported regarding the genitourinary system. EENT: No signs and/or symptoms were reported regarding the EENT system. Derm: Skin is intact, Skin is dry, Skin is normal, Skin temperature is warm. Musculoskeletal: Circulation, motion, and sensation intact. Range of motion: intact in all extremities, Reports pain in right ankle. 22:33 Reassessment: Patient appears in no apparent distress at this time. Patient and/or jd3 family updated on plan of care and expected duration. Pain level reassessed. Patient is alert, oriented x 3, equal unlabored respirations, skin warm/dry/pink. X-ray tech at bedside. 22:58 Reassessment: Patient appears in no apparent distress at this time. Patient and/or jd3 family updated on plan of care and expected duration. Pain level reassessed. Patient is alert, oriented x 3, equal unlabored respirations, skin warm/dry/pink. pt reported understanding of discharge instructions. Vital Signs: 21:39 BP 134 / 84; Pulse 88; Resp 17 S; Temp 97.4(O); Pulse Ox 98% on R/A; Weight 83.91 kg jd3 (R); Height 5 ft. 5 in. (165.10 cm) (R); Pain 9/10; 22:59 BP 134 / 83; Pulse 87; Resp 17 S; Pulse Ox 98% on R/A; jd3 21:39 Body Mass Index 30.79 (83.91 kg, 165.10 cm) j ED Course: 21:35 Patient arrived in ED. jd3 21:37 Triage completed. jd3 21:39 Stuart Dumont MD is Attending Physician. [facility] 21:42 Arm band placed on. jd3 21:44 Patient has correct armband on for positive identification. Bed in low position. Call j light in reach. Side rails up X 1. 22:13 Bismark Umaña, RN is Primary Nurse. jd3 22:45 Knee Right 3 View XRAY In Process Unspecified. EDMS 22:45 Ankle Right 3 View XRAY In Process Unspecified. EDMS 22:45 Foot Right 3 View XRAY In Process Unspecified. EDNY 22:53 Bereket Pretty MD is Referral Physician. [facility] 22:58 No provider procedures requiring assistance completed. Patient did not have IV access j during this emergency room visit. Administered Medications: No medications were administered Outcome: 22:53 Discharge ordered by . [facility] 22:58 Discharged to home ambulatory. j 22:58 Condition: stable 22:58 Discharge instructions given to patient, Instructed on discharge instructions, follow up and referral plans. Demonstrated understanding of instructions, follow-up care. 22:59 Patient left the ED. j Signatures: Dispatcher [employer] EDNY Stuart Dumont MD MD cha Davies, Jonathon, RN RN j
--- NOTE | 2018-05-29 22:54 | EDPHYS ---
Physician Documentation [facility] Name: Bereket Gardner Age: 43 yrs Sex: Male : 1975 Arrival Date: 05/29/2018 Time: 21:35 Bed 24 Private MD: ED Physician Stuart Dumont HPI: 05/29 22:01 This 43 yrs old Male presents to ER via EMS with complaints of right knee, florentin ankle and foot pain. 22:01 The patient presents with decreased range of motion, pain, that is acute. The florentin complaints affect the lateral aspect of right knee, right ankle, lateral aspect of right foot, right knee, anterior aspect of right ankle and dorsum of right foot. Context: The problem was sustained at home. Onset: The symptoms/episode began/occurred just prior to arrival. Modifying factors: The symptoms are alleviated by elevating leg, remaining still, the symptoms are aggravated by movement, bending knee. Associated signs and symptoms: The patient has no apparent associated signs or symptoms. The patient presents with decreased range of motion, pain. The complaints affect the right ankle. Historical: - Allergies: 21:39 Aspirin; jd3 21:39 Ibuprofen; jd3 - Home Meds: 21:39 Depakote 500 mg Oral TbEC 1 tab 1 am and 2 at night [Active]; fenofibrate 145 MG Oral jd3 once daily [Active]; hydroxyzine HCl 50 mg Oral tab 2 tabs three times a day [Active]; Invega Oral [Active]; Risperdal Oral [Active]; trazodone 50 mg Oral tab 1 tab nightly [Active]; - PMHx: 21:39 Anemia; enlarged heart and liver; Bipolar disorder; Schizophrenia; High Cholesterol; jd3 Hypertension; Anxiety; - PSHx: 21:39 Cholecystectomy; jd3 - Immunization history:: Adult Immunizations unknown. - Social history:: Smoking status: Patient uses tobacco products, smokes one-half pack cigarettes per day. - Ebola Screening: : Patient negative for fever greater than or equal to 101.5 degrees Fahrenheit, and additional compatible Ebola Virus Disease symptoms. - Family history:: not pertinent. ROS: 22:01 Constitutional: Negative for fever, chills, and weight loss, Eyes: Negative for injury, florentin pain, redness, and discharge, ENT: Negative for injury, pain, and discharge, Neck: Negative for injury, pain, and swelling, Cardiovascular: Negative for chest pain, palpitations, and edema, Respiratory: Negative for shortness of breath, cough, wheezing, and pleuritic chest pain, Abdomen/GI: Negative for abdominal pain, nausea, vomiting, diarrhea, and constipation, Back: Negative for injury and pain, : Negative for injury, bleeding, discharge, and swelling, Skin: Negative for injury, rash, and discoloration, Neuro: Negative for headache, weakness, numbness, tingling, and seizure, Psych: Negative for depression, anxiety, suicide ideation, homicidal ideation, and hallucinations, Allergy/Immunology: Negative for hives, rash, and allergies, Endocrine: Negative for neck swelling, polydipsia, polyuria, polyphagia, and marked weight changes, Hematologic/Lymphatic: Negative for swollen nodes, abnormal bleeding, and unusual bruising. 22:01 MS/extremity: Positive for injury or acute deformity, decreased range of motion, pain, tenderness, of the dorsum of right foot and anterior aspect of right ankle and right knee and right ankle. Exam: 22:01 Constitutional: This is a well developed, well nourished patient who is awake, alert, florentin and in no acute distress. Head/Face: Normocephalic, atraumatic. Eyes: Pupils equal round and reactive to light, extra-ocular motions intact. Lids and lashes normal. Conjunctiva and sclera are non-icteric and not injected. Cornea within normal limits. Periorbital areas with no swelling, redness, or edema. ENT: Nares patent. No nasal discharge, no septal abnormalities noted. Tympanic membranes are normal and external auditory canals are clear. Oropharynx with no redness, swelling, or masses, exudates, or evidence of obstruction, uvula midline. Mucous membranes moist. Neck: Trachea midline, no thyromegaly or masses palpated, and no cervical lymphadenopathy. Supple, full range of motion without nuchal rigidity, or vertebral point tenderness. No Meningismus. Chest/axilla: Normal chest wall appearance and motion. Nontender with no deformity. No lesions are appreciated. Cardiovascular: Regular rate and rhythm with a normal S1 and S2. No gallops, murmurs, or rubs. Normal PMI, no JVD. No pulse deficits. Respiratory: Lungs have equal breath sounds bilaterally, clear to auscultation and percussion. No rales, rhonchi or wheezes noted. No increased work of breathing, no retractions or nasal flaring. Abdomen/GI: Soft, non-tender, with normal bowel sounds. No distension or tympany. No guarding or rebound. No evidence of tenderness throughout. Back: No spinal tenderness. No costovertebral tenderness. Full range of motion. Male : Normal genitalia with no discharge or lesions. Skin: Warm, dry with normal turgor. Normal color with no rashes, no lesions, and no evidence of cellulitis. Neuro: Awake and alert, GCS 15, oriented to person, place, time, and situation. Cranial nerves II-XII grossly intact. Motor strength 5/5 in all extremities. Sensory grossly intact. Cerebellar exam normal. Normal gait. Psych: Awake, alert, with orientation to person, place and time. Behavior, mood, and affect are within normal limits. 22:01 Musculoskeletal/extremity: Extremities: grossly normal except: noted in the lateral aspect of right knee, right ankle, medial aspect of right knee, right knee, anterior aspect of right ankle and dorsum of right foot: pain. Vital Signs: 21:39 BP 134 / 84; Pulse 88; Resp 17 S; Temp 97.4(O); Pulse Ox 98% on R/A; Weight 83.91 kg jd3 (R); Height 5 ft. 5 in. (165.10 cm) (R); Pain 9/10; 22:59 BP 134 / 83; Pulse 87; Resp 17 S; Pulse Ox 98% on R/A; jd3 21:39 Body Mass Index 30.79 (83.91 kg, 165.10 cm) jd3 MDM: 21:39 Patient medically screened. [facility] 22:06 Data reviewed: vital signs, nurses notes, radiologic studies. [facility] 05/29 22:00 Order name: Knee Right 3 View XRAY [facility] 05/29 22:00 Order name: Ankle Right 3 View XRAY [facility] 05/29 22:00 Order name: Foot Right 3 View XRAY [facility] 05/29 22:00 Order name: Ice pack; Complete Time: 22:22 [facility] Administered Medications: No medications were administered Disposition: 05/29/18 22:53 Discharged to Home. Impression: Sprain of ankle, Sprain of foot, Sprain of other specified parts of knee. - Condition is Stable. - Discharge Instructions: Ankle Sprain, Foot Sprain, Knee Sprain, Ankle Sprain, Ocid-er-Pqgm. - Medication Reconciliation Form, Thank You Letter, Antibiotic Education, Prescription Opioid Use form. - Follow up: Private Physician; When: 2 - 3 days; Reason: Recheck today's complaints, Continuance of care, Re-evaluation by your physician. Follow up: Dr. Bereket Pretty; When: 2 - 3 days; Reason: Recheck today's complaints, Re-evaluation by your physician. - Problem is new. - Symptoms have improved. Signatures: Dispatcher [employer] EDMS Stuart Dumont MD MD cha Davies, Jonathon RN RN jd3 Corrections: (The following items were deleted from the chart) 22:59 22:53 05/29/2018 22:53 Discharged to Home. Impression: Sprain of ankle; Sprain of foot; jd3 Sprain of other specified parts of knee. Condition is Stable. Discharge Instructions: Ankle Sprain, Foot Sprain, Knee Sprain, Ankle Sprain, Kyth-cr-Auzk. Prescriptions for Tylenol-Codeine #3 300-30 mg Oral Tablet - take 2 tablets by ORAL route every 6 hours As needed; 24 tablet. and Forms are Medication Reconciliation Form, Thank You Letter, Antibiotic Education, Prescription Opioid Use. Follow up: Private Physician; When: 2 - 3 days; Reason: Recheck today's complaints, Continuance of care, Re-evaluation by your physician. Follow up: Dr. Bereket Pretty; When: 2 - 3 days; Reason: Recheck today's complaints, Re-evaluation by your physician. Problem is new. Symptoms have improved. florentin
[2018-05-29 23:11] VITALS: TEMP 97.4; O2SAT 98
[2018-05-29 23:12] VITALS: BP 134/83
--- NOTE | 2018-05-30 08:59 | RAD REPORT ---
EXAM DESCRIPTION: RAD - Knee Right 3 View - 05/29/2018 10:45 pm CLINICAL HISTORY: Trip and fall, knee pain COMPARISON: None. FINDINGS: No fracture, dislocation or periosteal reaction.No joint effusion seen. No joint space manuela rowing. No foreign body or other soft tissue abnormality. IMPRESSION: Negative right knee. Clinical concerns for internal derangement or occult bony injury could be further assessed with MR im kayy.
--- NOTE | 2018-05-30 09:00 | RAD REPORT ---
EXAM DESCRIPTION: RAD - Ankle Right 3 View - 05/29/2018 10:45 pm CLINICAL HISTORY: Trip and fall, ankle pain COMPARISON: None. FINDINGS: No fracture, dislocation or periosteal reaction. No joint effusion seen. No joint space na rrowing. Small a moderate size plantar and Achilles spurs are present. No significant soft tissue fin ding. IMPRESSION: No fracture or acute right ankle finding. Small to moderate plantar and Achilles spurs.
--- NOTE | 2018-05-30 09:01 | RAD REPORT ---
EXAM DESCRIPTION: RAD - Foot Right 3 View - 05/29/2018 10:45 pm CLINICAL HISTORY: Trip and fall, right foot pain COMPARISON: Right foot June 2017 FINDINGS: No fracture, dislocation or periosteal reaction. No acute bone or joint finding. There is early degenerative change at the first MTP joint seen as joint space narrowing and flattening of the metatarsal head. Minimal spurring along the lateral margin. No erosive component. No air or foreign body in the soft tissues. Achilles and plantar spurs are present similar to compari son. IMPRESSION: Negative right foot examination for acute finding. Above detailed findings are stable fr om June 2017.
== END 2018-05-29 22:59 | disposition home or self-care (01) ==
LOC: ER 21:30
DX: S83.8X1A Sprain of other specified parts of right knee, initial encounter (principal); S93.401A Sprain of unspecified ligament of right ankle, initial encounter; S93.601A Unspecified sprain of right foot, initial encounter; W01.0XXA Fall on same level from slipping, tripping and stumbling without subsequent striking against object, initial encounter; F31.9 Bipolar disorder, unspecified; F20.9 Schizophrenia, unspecified; F41.9 Anxiety disorder, unspecified; I10 Essential (primary) hypertension; D64.9 Anemia, unspecified; E78.00 Pure hypercholesterolemia, unspecified; F17.210 Nicotine dependence, cigarettes, uncomplicated; Z79.899 Other long term (current) drug therapy
CPT/HCPCS: 99283

== ENCOUNTER 2018-05-31 21:56 | Emergency (ER) | payer OTHER ==
--- OUTSIDE RECORDS SUMMARY | 2018-05-31 22:00 | XMS REPORT ---
:1975 Author Organization [facility] Address [address] [place] [address] [address]. Zuniga [address] [place] [address] Care Team Providers Name Role Phone MADELEINE [...] Acid (test code=VALP) 77.4 ug/mL 50.0-100.0 RPR, [id number] 12:49:00 Test Item Value Reference Range Comments RPR (test code=RPR) Non-Reactive Non-Reactive Thyroid Stimulating Hormone (TSH)2016-10-01 07:49:00 Test Item Value Reference Range Comments TSH (test code=TSH) 6.31 mIU/mL 0.270-4.200 Lipid [id number] 07:41:00 Test Item Value Reference Range Comments Cholesterol (test 162 mg/dL 0-200 code=CHOL) Triglycerides (test 231 mg/dL 9-200 code=TRIG) HDL (test code=HDL) 36 mg/dL 40-60 Chol/HDL (test 4.5 Ratio 0.0-5.0 code=CHOLPHDL) LDL, Calculated (test 80 0-130 (NOTE)RISK OF HEART code=LDLC) DISEASEPublished by [place] Heart AssociationAnalyte Optimal Boderline Increased RiskCHOL <200 200-239 >240TRIG <150 150-199 >200HDL Male: >60 <40HDL Female: >60 <50LDL <100 130-159 >160LDL NEAR OPTIMAL IS 100-129 VLDL (test code=VLDL) 46 mg/dL 5-40 LDL/HDL (test code=LDLPHDL) 2 [id number] 05:39:00 Test Item Value Reference Range Comments [...] Urine (test <0.01 g/dL 0.00-0.01 code=ETOHU) Alcohol/Ethanol, [id number] 05:31:00 Test Item Value Reference Range Comments Alcohol, Ethyl (test <0.01 g/dL 0.00-0.01 Intoxicated 0.080 g/dL or code=ETOH) more Comprehensive Metabolic [id number] 05:31:00 Test Item Value Reference Range Comments [...] race is not provided, and the patient isAfrican-[place]ian, multiply by 1.212. If sex is not provided, and thepatient is female, multiply by 0.742. Results for patients <18 years ofage have not been validated by the MDRD study and should be interpretedwith caution.eGFR Result Interpretation:eGFR > or=60 is in the Normal RangeeGFR < 60 may mean kidney diseaseeGFR < 15 may mean kidney failureRanges recommended by the National Kidney Foundation,http://nkdep.nih .gov Urinalysis [id number] 05:30:00 Test Item Value Reference Range Comments Color (test code=COLOR) Yellow Yellow,Straw,Pl yellow Clarity (test code=CLAR) Clear Clear Specific [place] (test code=SPGR) 1.006 1.001-1.035 pH (test code=PH) [...] Exam (test code=MEXAM) Not indicated CBC with [id number] 05:19:00 Test Item Value Reference Range Comments [...] Lymph Abs (test code=ALYMPH) 1.7 K/cumm 0.5-4.6 [place] Abs (test code=AMONO) 0.8 K/cumm 0.0-1.2 Eos Abs (test code=AEOS) 0.09 K/cumm 0.00-0.74 Baso Abs (test code=ABASO) 0.0 K/cumm 0.00-0.21 CBC with [id number] 10:15:00 Test Item Value Reference Range Comments [...] Lymph Abs (test code=ALYMPH) 2.4 K/cumm 0.5-4.6 [place] Abs (test code=AMONO) 0.6 K/cumm 0.0-1.2 Eos Abs (test code=AEOS) 0.09 K/cumm 0.00-0.74 Baso Abs (test code=ABASO) 0.1 K/cumm 0.00-0.21 RPR, [id number] 10:10:00 Test Item Value Reference Range Comments RPR (test code=RPR) Non-Reactive Non-Reactive Thyroid Stimulating Hormone (TSH)2016-09-05 09:52:00 Test Item Value Reference Range Comments TSH (test code=TSH) 2.86 mIU/mL 0.270-4.200 Lipid [id number] 09:44:00 Test Item Value Reference Range Comments Cholesterol (test 106 mg/dL 0-200 code=CHOL) Triglycerides (test 167 mg/dL 9-200 code=TRIG) HDL (test code=HDL) 25 mg/dL 40-60 Chol/HDL (test 4.2 Ratio 0.0-5.0 code=CHOLPHDL) LDL, Calculated (test 48 0-130 (NOTE)RISK OF HEART code=LDLC) DISEASEPublished by [place] Heart AssociationAnalyte Optimal Boderline Increased RiskCHOL <200 200-239 >240TRIG <150 150-199 >200HDL Male: >60 <40HDL Female: >60 <50LDL <100 130-159 >160LDL NEAR OPTIMAL IS 100-129 VLDL (test code=VLDL) 33 mg/dL 5-40 LDL/HDL (test code=LDLPHDL) 2 Valproic Acid (Depakote),[id number] 09:44:00 Test Item Value Reference Range Comments Valproic Acid (test code=VALP) 62.7 ug/mL 50.0-100.0 Comprehensive Metabolic [id number] 09:44:00 Test Item Value Reference Range Comments [...] race is not provided, and the patient isAfrican-[place]ian, multiply by 1.212. If sex is not [...] the National Kidney Foundation,http://nkdep.nih .gov Comprehensive Metabolic [id number] 03:26:00 Test Item Value Reference Range Comments [...] race is not provided, and the patient isAfrican-[place]ian, multiply by 1.212. If sex is not provided, and thepatient is female, multiply by 0.742. Results for patients <18 years ofage have not been validated by the MDRD study and should be interpretedwith caution.eGFR Result Interpretation:eGFR > or=60 is in the Normal RangeeGFR < 60 may mean kidney diseaseeGFR < 15 may mean kidney failureRanges recommended by the National Kidney Foundation,http://nkdep.nih .gov [id number] 03:06:00 Test Item Value Reference Range Comments [...] Urine (test <0.01 g/dL 0.00-0.01 code=ETOHU) Troponin [id number] 03:06:00 Test Item Value Reference Range Comments Troponin T (test code=SHAMIKA) <0.010 ng/mL 0.000-0.090 Urinalysis [id number] 02:57:00 Test Item Value Reference Range Comments Color (test code=COLOR) Yellow Yellow,Straw,Pl yellow Clarity (test code=CLAR) Clear Clear Specific [place] (test 1.028 1.001-1.035 code=SPGR) pH (test code=PH) [...] code=DERRICK) Few Calcium Oxalate /HPF CBC with [id number] 02:43:00 Test Item Value Reference Range Comments [...] Lymph Abs (test code=ALYMPH) 2.5 K/cumm 0.5-4.6 [place] Abs (test code=AMONO) 0.6 K/cumm 0.0-1.2 Eos Abs (test code=AEOS) 0.13 K/cumm 0.00-0.74 Baso Abs (test code=ABASO) 0.0 K/cumm 0.00-0.21 Valproic Acid (Depakote),[id number] 07:46:00 Test Item Value Reference Range Comments Valproic Acid (test code=VALP) 63.2 ug/mL 50.0-100.0 POC Glucose, [id number] 19:39:00 Test Item Value Reference Range Comments POC Glucose (test 204 mg/dL 70-115 If you consider your patient code=POCGLUC) critically ill, the Ismael Accu-Chek InformII metershould not be used for Glucose determinations.Draw a venous Glucose and send to the Main Lab for Analysis. Comprehensive Metabolic [id number] 05:27:00 Test Item Value Reference Range Comments [...] race is not provided, and the patient isAfrican-[place]ian, multiply by 1.212. If sex is not provided, and thepatient is female, multiply by 0.742. Results for patients <18 years ofage have not been validated by the MDRD study and should be interpretedwith caution.eGFR Result Interpretation:eGFR > or=60 is in the Normal RangeeGFR < 60 may mean kidney diseaseeGFR < 15 may mean kidney failureRanges recommended by the National Kidney Foundation,http://nkdep.nih .gov [id number] 05:27:00 Test Item Value Reference Range Comments [...] (test <0.01 g/dL 0.00-0.01 code=ETOHU) CBC with [id number] 05:08:00 Test Item Value Reference Range Comments [...] Lymph Abs (test code=ALYMPH) 2.8 K/cumm 0.5-4.6 [place] Abs (test code=AMONO) 0.6 K/cumm 0.0-1.2 Eos Abs (test code=AEOS) 0.12 K/cumm 0.00-0.74 Baso Abs (test code=ABASO) 0.1 K/cumm 0.00-0.21 Urinalysis [id number] 05:07:00 Test Item Value Reference Range Comments Color (test code=COLOR) Straw Yellow,Straw,Pl yellow Clarity (test code=CLAR) Clear Clear Specific [place] (test code=SPGR) 1.005 1.001-1.035 pH (test code=PH) [...]
--- NOTE | 2018-05-31 23:02 | ER ---
Nurse's Notes [facility] Name: Bereket Gardner Age: 43 yrs Sex: Male : 1975 Arrival Date: 05/31/2018 Time: 21:57 Bed 25 Private MD: Diagnosis: Pain in right ankle and joints of right foot Presentation: 05/31 22:02 Presenting complaint: Patient states: He feel down the stairs today and hurt his right aj1 ankle and his right knee. Patient ambulated to triage with a limp. Transition of care: patient was not received from another setting of care. Onset of symptoms was May 31, 2018 at 21:30. Risk Assessment: Do you want to hurt yourself or someone else? Patient reports no desire to harm self or others. Initial Sepsis Screen: Does the patient meet any 2 criteria? No. Patient's initial sepsis screen is negative. Does the patient have a suspected source of infection? No. Patient's initial sepsis screen is negative. Care prior to arrival: None. 22:02 Method Of Arrival: Ambulatory aj 22:02 Acuity: ARIA 4 aj1 Triage Assessment: 22:04 General: Appears in no apparent distress. uncomfortable, Behavior is calm, cooperative, aj1 appropriate for age. Pain: Complains of pain in right knee and anterior aspect of right ankle Pain currently is 10 out of 10 on a pain scale. Neuro: Level of Consciousness is awake, alert, obeys commands. Cardiovascular: Patient's skin is warm and dry. Respiratory: Airway is patent Respiratory effort is even, unlabored, Respiratory pattern is regular, symmetrical. Musculoskeletal: Range of motion: intact in all extremities. Injury Description: Patient fell down the stairs. Historical: - Allergies: 22:04 Aspirin; aj1 22:04 Ibuprofen; aj1 - Home Meds: 22:04 Depakote 500 mg Oral TbEC 1 tab 1 am and 2 at night [Active]; fenofibrate 145 MG Oral aj1 once daily [Active]; hydroxyzine HCl 50 mg Oral tab 2 tabs three times a day [Active]; Invega Oral [Active]; Risperdal Oral [Active]; trazodone 50 mg Oral tab 1 tab nightly [Active]; - PMHx: 22:04 Anemia; Anxiety; Bipolar disorder; enlarged heart and liver; High Cholesterol; aj1 Hypertension; Schizophrenia; - Immunization history:: Flu vaccine is not up to date. - Social history:: Smoking status: Patient uses tobacco products, smokes one-half pack cigarettes per day. - Ebola Screening: : Patient denies travel to an Ebola-affected area in the 21 days before illness onset. Screenin:51 Abuse screen: Denies threats or abuse. Nutritional screening: No deficits noted. la1 Tuberculosis screening: No symptoms or risk factors identified. Fall Risk None identified. Assessment: 22:50 General: Appears in no apparent distress. Behavior is calm. Pain:. Neuro: Level of la1 Consciousness is awake, alert, obeys commands, Oriented to person, place, time, situation. Cardiovascular: Capillary refill < 3 seconds Patient's skin is warm and dry. Respiratory: Airway is patent Respiratory effort is even, unlabored, Respiratory pattern is regular, symmetrical. GI: No signs and/or symptoms were reported involving the gastrointestinal system. : No signs and/or symptoms were reported regarding the genitourinary system. Musculoskeletal: Circulation, motion, and sensation intact. Range of motion: intact in all extremities. 23:14 Reassessment: No changes from previously documented assessment. Patient is alert, bb oriented x 3, equal unlabored respirations, skin warm/dry/pink. air splint in place to right lower extremity pt verbalized understanding of and agrees to plan of care discharge instructions given pt ambulated with steady gait to exit. Vital Signs: 22:04 BP 137 / 67; Pulse 89; Resp 18; Temp 98.0; Pulse Ox 98% on R/A; Pain 10/10; aj1 ED Course: 21:57 Patient arrived in ED. es 22:03 Triage completed. aj1 22:04 Arm band placed on Patient placed in waiting room, Patient notified of wait time. aj1 22:12 Dayan Wills FNP-C is PHCP. snw 22:12 Juan Rivas MD is Attending Physician. snw 22:46 Sergio Woodard, GEMINI is Primary Nurse. la1 22:51 Call light in reach. la1 23:08 Ankle Right 3 View XRAY In Process Unspecified. EDMS 23:15 No provider procedures requiring assistance completed. Patient did not have IV access bb during this emergency room visit. Administered Medications: No medications were administered Outcome: 23:01 Discharge ordered by . snw 23:15 Discharged to home ambulatory. bb 23:15 Condition: stable 23:15 Discharge instructions given to patient, Instructed on discharge instructions, follow up and referral plans. Demonstrated understanding of instructions, follow-up care. 23:26 Patient left the ED. bb Signatures: Dispatcher [employer] Toña Lawson RN RN aj1 Dayan Wills, INSPECTOR FILTER TIP-C INSPECTOR FILTER TIP-Csnw Nahed Nicholas Brenda, RN RN bb Sergio Woodard RN RN la1
--- NOTE | 2018-05-31 23:02 | EDPHYS ---
Physician Documentation [facility] Name: Bereket Gardner Age: 43 yrs Sex: Male : 1975 Arrival Date: 05/31/2018 Time: 21:57 Bed 25 Private MD: ED Physician Juan Rivas HPI: 05/31 22:14 This 43 yrs old Male presents to ER via Ambulatory with complaints of Foot snw Injury. 22:14 The patient presents with a contusion, pain, swelling, tenderness. The complaints snw affect the right ankle and anterior aspect of right ankle. Context: The problem was sustained outdoors, resulted from missed step and fell from stairs, the patient can partially bear weight, the patient is able to ambulate, with mild difficulty. Onset: The symptoms/episode began/occurred suddenly, just prior to arrival. Modifying factors: The symptoms are alleviated by remaining still, the symptoms are aggravated by pressure. Associated signs and symptoms: Pertinent positives: swelling, Pertinent negatives calf tenderness, fever, nausea, numbness, rash, weakness. Severity of symptoms: At their worst the symptoms were moderate. It is unknown whether or not the patient has had similar symptoms in the past. It is unknown whether or not the patient has recently seen a physician. arrives via EMS, vss.. Historical: - Allergies: 22:04 Aspirin; aj1 22:04 Ibuprofen; aj1 - Home Meds: 22:04 Depakote 500 mg Oral TbEC 1 tab 1 am and 2 at night [Active]; fenofibrate 145 MG Oral aj1 once daily [Active]; hydroxyzine HCl 50 mg Oral tab 2 tabs three times a day [Active]; Invega Oral [Active]; Risperdal Oral [Active]; trazodone 50 mg Oral tab 1 tab nightly [Active]; - PMHx: 22:04 Anemia; Anxiety; Bipolar disorder; enlarged heart and liver; High Cholesterol; aj1 Hypertension; Schizophrenia; - Immunization history:: Flu vaccine is not up to date. - Social history:: Smoking status: Patient uses tobacco products, smokes one-half pack cigarettes per day. - Ebola Screening: : Patient denies travel to an Ebola-affected area in the 21 days before illness onset. ROS: 22:14 Constitutional: Negative for fever, chills, and weight loss, Eyes: Negative for injury, snw pain, redness, and discharge, ENT: Negative for injury, pain, and discharge, Neck: Negative for injury, pain, and swelling, Cardiovascular: Negative for chest pain, palpitations, and edema, Respiratory: Negative for shortness of breath, cough, wheezing, and pleuritic chest pain, Abdomen/GI: Negative for abdominal pain, nausea, vomiting, diarrhea, and constipation, Back: Negative for injury and pain, : Negative for injury, bleeding, discharge, and swelling, Skin: Negative for injury, rash, and discoloration, Neuro: Negative for headache, weakness, numbness, tingling, and seizure. 22:14 MS/extremity: Positive for injury or acute deformity, contusion, decreased range of motion, pain, swelling, tenderness, of the right ankle. Exam: 22:13 Constitutional: This is a well developed, well nourished patient who is awake, alert, snw and in no acute distress. Head/Face: Normocephalic, atraumatic. Eyes: Pupils equal round and reactive to light, extra-ocular motions intact. Lids and lashes normal. Conjunctiva and sclera are non-icteric and not injected. Cornea within normal limits. Periorbital areas with no swelling, redness, or edema. ENT: Nares patent. No nasal discharge, no septal abnormalities noted. Tympanic membranes are normal and external auditory canals are clear. Oropharynx with no redness, swelling, or masses, exudates, or evidence of obstruction, uvula midline. Mucous membranes moist. Neck: Trachea midline, no thyromegaly or masses palpated, and no cervical lymphadenopathy. Supple, full range of motion without nuchal rigidity, or vertebral point tenderness. No Meningismus. Chest/axilla: Normal chest wall appearance and motion. Nontender with no deformity. No lesions are appreciated. Cardiovascular: Regular rate and rhythm with a normal S1 and S2. No gallops, murmurs, or rubs. Normal PMI, no JVD. No pulse deficits. Respiratory: Lungs have equal breath sounds bilaterally, clear to auscultation and percussion. No rales, rhonchi or wheezes noted. No increased work of breathing, no retractions or nasal flaring. Abdomen/GI: Soft, non-tender, with normal bowel sounds. No distension or tympany. No guarding or rebound. No evidence of tenderness throughout. Back: No spinal tenderness. No costovertebral tenderness. Full range of motion. Skin: Warm, dry with normal turgor. Normal color with no rashes, no lesions, and no evidence of cellulitis. Neuro: Awake and alert, GCS 15, oriented to person, place, time, and situation. Cranial nerves II-XII grossly intact. Motor strength 5/5 in all extremities. Sensory grossly intact. Cerebellar exam normal. Normal gait. 22:13 Musculoskeletal/extremity: Extremities: grossly normal except: noted in the right lateral malleolus: contusion, swelling, tenderness, ROM: limited active range of motion due to pain, in the right ankle, Circulation is intact in all extremities. Sensation intact. Vital Signs: 22:04 BP 137 / 67; Pulse 89; Resp 18; Temp 98.0; Pulse Ox 98% on R/A; Pain 10/10; aj1 MDM: 22:39 Patient medically screened. snw 23:03 Data reviewed: vital signs, nurses notes. Data interpreted: Pulse oximetry: on room air snw is 98 %. Interpretation: normal. Counseling: I had a detailed discussion with the patient and/or guardian regarding: the historical points, exam findings, and any diagnostic results supporting the discharge/admit diagnosis, radiology results, the need for outpatient follow up, to return to the emergency department if symptoms worsen or persist or if there are any questions or concerns that arise at home. Special discussion: Based on the history and exam findings, there is no indication for further emergent testing or inpatient evaluation. I discussed with the patient/guardian the need to see the orthopedic surgeon for further evaluation of the symptoms. I discussed with the patient/guardian the need to see the transcription specialist for further evaluation of the symptoms. I discussed with the patient/guardian the need to see the primary care provider for further evaluation of the symptoms. 05/31 22:13 Order name: Ankle Right 3 View XRAY snw 05/31 23:00 Order name: Ankle Splint: Aircast; Complete Time: 23:13 snw Administered Medications: No medications were administered Disposition: 06/01 01:29 Co-signature as Attending Physician, Juan Rivas MD. rn Disposition: 05/31/18 23:01 Discharged to Home. Impression: Pain in right ankle and joints of right foot. - Condition is Stable. - Discharge Instructions: Joint Pain, Cast or Splint Care, Adult, Musculoskeletal Pain, Ankle Pain, Cryotherapy, Heat Therapy. - Medication Reconciliation Form, Thank You Letter, Antibiotic Education, Prescription Opioid Use form. - Follow up: Private Physician; When: 1 - 2 days; Reason: Recheck today's complaints, Continuance of care, Re-evaluation by your physician. Follow up: Emergency Department; When: As needed; Reason: Worsening of condition. Signatures: Dispatcher [employer] EDToña Diggs RN RN aj1 Dayan Wills, SKIP MINER BLASTING-C SKIP MINER BLASTING-Csnw Yanet Quigley RN RN bb Juan Rivas MD MD hr internship: (The following items were deleted from the chart) 05/31 23:26 23:01 05/31/2018 23:01 Discharged to Home. Impression: Pain in right ankle and joints bb of right foot. Condition is Stable. Forms are Medication Reconciliation Form, Thank You Letter, Antibiotic Education, Prescription Opioid Use. Follow up: Private Physician; When: 1 - 2 days; Reason: Recheck today's complaints, Continuance of care, Re-evaluation by your physician. Follow up: Emergency Department; When: As needed; Reason: Worsening of condition. snw
[2018-05-31 23:58] VITALS: BP 137/67; TEMP 98; O2SAT 98
--- NOTE | 2018-06-01 08:43 | RAD REPORT ---
EXAM DESCRIPTION: RAD - Ankle Right 3 View - 05/31/2018 11:05 pm CLINICAL HISTORY: PAIN Fall, trauma, pain COMPARISON: Ankle Right 3 View dated 05/29/2018 FINDINGS: No acute fracture or dislocation of the right ankle. Prominent calcaneal spurs are seen.
== END 2018-05-31 23:26 | disposition home or self-care (01) ==
LOC: ER 21:56
DX: M25.571 Pain in right ankle and joints of right foot (principal); I10 Essential (primary) hypertension; E78.00 Pure hypercholesterolemia, unspecified; F31.9 Bipolar disorder, unspecified; F20.9 Schizophrenia, unspecified; F17.210 Nicotine dependence, cigarettes, uncomplicated; Z88.6 Allergy status to analgesic agent
CPT/HCPCS: 99283

== ENCOUNTER 2018-06-01 02:32 | Emergency (ER) | payer OTHER ==
--- OUTSIDE RECORDS SUMMARY | 2018-06-01 02:35 | XMS REPORT ---
:1975 [facility] Address [address] [place] [address] [address]. Zun[address] [place] [address] Care Team Providers Name Role Phone MADELEINE [...] Acid (test code=VALP) 77.4 ug/mL 50.0-100.0 RPR, [id number] 12:49:00 Test Item Value Reference Range Comments RPR (test code=RPR) Non-Reactive Non-Reactive Thyroid Stimulating Hormone (TSH)2016-10-01 07:49:00 Test Item Value Reference Range Comments TSH (test code=TSH) 6.31 mIU/mL 0.270-4.200 Lipid [id number] 07:41:00 Test Item Value Reference Range Comments Cholesterol (test 162 mg/dL 0-200 code=CHOL) Triglycerides (test 231 mg/dL 9-200 code=TRIG) HDL (test code=HDL) 36 mg/dL 40-60 Chol/HDL (test 4.5 Ratio 0.0-5.0 code=CHOLPHDL) LDL, Calculated (test 80 0-130 (NOTE)RISK OF HEART code=LDLC) DISEASEPublished by Martiniquais Heart AssociationAnalyte Optimal Boderline Increased RiskCHOL <200 200-239 >240TRIG <150 150-199 >200HDL Male: >60 <40HDL Female: >60 <50LDL <100 130-159 >160LDL NEAR OPTIMAL IS 100-129 VLDL (test code=VLDL) 46 mg/dL 5-40 LDL/HDL (test code=LDLPHDL) 2 [id number] 05:39:00 Test Item Value Reference Range Comments [...] Urine (test <0.01 g/dL 0.00-0.01 code=ETOHU) Alcohol/Ethanol, [id number] 05:31:00 Test Item Value Reference Range Comments Alcohol, Ethyl (test <0.01 g/dL 0.00-0.01 Intoxicated 0.080 g/dL or code=ETOH) more Comprehensive Metabolic [id number] 05:31:00 Test Item Value Reference Range Comments [...] race is not provided, and the patient isAfrican-Martiniquais, multiply by 1.212. If sex is not provided, and thepatient is female, multiply by 0.742. Results for patients <18 years ofage have not been validated by the MDRD study and should be interpretedwith caution.eGFR Result Interpretation:eGFR > or=60 is in the Normal RangeeGFR < 60 may mean kidney diseaseeGFR < 15 may mean kidney failureRanges recommended by the National Kidney Foundation,http://nkdep.nih .gov Urinalysis [id number] 05:30:00 Test Item Value Reference Range Comments Color (test code=COLOR) Yellow Yellow,Straw,Pl yellow Clarity (test code=CLAR) Clear Clear Specific [place] (test code=SPGR) 1.006 1.001-1.035 pH (test code=PH) [...] Exam (test code=MEXAM) Not indicated CBC with [id number] 05:19:00 Test Item Value Reference Range Comments [...] Lymph Abs (test code=ALYMPH) 1.7 K/cumm 0.5-4.6 Aiken Abs (test code=AMONO) 0.8 K/cumm 0.0-1.2 Eos Abs (test code=AEOS) 0.09 K/cumm 0.00-0.74 Baso Abs (test code=ABASO) 0.0 K/cumm 0.00-0.21 CBC with [id number] 10:15:00 Test Item Value Reference Range Comments [...] Lymph Abs (test code=ALYMPH) 2.4 K/cumm 0.5-4.6 Aiken Abs (test code=AMONO) 0.6 K/cumm 0.0-1.2 Eos Abs (test code=AEOS) 0.09 K/cumm 0.00-0.74 Baso Abs (test code=ABASO) 0.1 K/cumm 0.00-0.21 RPR, [id number] 10:10:00 Test Item Value Reference Range Comments RPR (test code=RPR) Non-Reactive Non-Reactive Thyroid Stimulating Hormone (TSH)2016-09-05 09:52:00 Test Item Value Reference Range Comments TSH (test code=TSH) 2.86 mIU/mL 0.270-4.200 Lipid [id number] 09:44:00 Test Item Value Reference Range Comments Cholesterol (test 106 mg/dL 0-200 code=CHOL) Triglycerides (test 167 mg/dL 9-200 code=TRIG) HDL (test code=HDL) 25 mg/dL 40-60 Chol/HDL (test 4.2 Ratio 0.0-5.0 code=CHOLPHDL) LDL, Calculated (test 48 0-130 (NOTE)RISK OF HEART code=LDLC) DISEASEPublished by Martiniqu[place] Heart AssociationAnalyte Optimal Boderline Increased RiskCHOL <200 200-239 >240TRIG <150 150-199 >200HDL Male: >60 <40HDL Female: >60 <50LDL <100 130-159 >160LDL NEAR OPTIMAL IS 100-129 VLDL (test code=VLDL) 33 mg/dL 5-40 LDL/HDL (test code=LDLPHDL) 2 Valproic Acid (Depakote),[id number] 09:44:00 Test Item Value Reference Range Comments Valproic Acid (test code=VALP) 62.7 ug/mL 50.0-100.0 Comprehensive Metabolic [id number] 09:44:00 Test Item Value Reference Range Comments [...] race is not provided, and the patient isAfrican-Martiniquais, multiply by 1.212. If sex is not [...] the National Kidney Foundation,http://nkdep.nih .gov Comprehensive Metabolic [id number] 03:26:00 Test Item Value Reference Range Comments [...] race is not provided, and the patient isAfrican-Martiniquais, multiply by 1.212. If sex is not provided, and thepatient is female, multiply by 0.742. Results for patients <18 years ofage have not been validated by the MDRD study and should be interpretedwith caution.eGFR Result Interpretation:eGFR > or=60 is in the Normal RangeeGFR < 60 may mean kidney diseaseeGFR < 15 may mean kidney failureRanges recommended by the National Kidney Foundation,http://nkdep.nih .gov [id number] 03:06:00 Test Item Value Reference Range Comments [...] Urine (test <0.01 g/dL 0.00-0.01 code=ETOHU) Troponin [id number] 03:06:00 Test Item Value Reference Range Comments Troponin T (test code=SHAMIKA) <0.010 ng/mL 0.000-0.090 Urinalysis [id number] 02:57:00 Test Item Value Reference Range Comments Color (test code=COLOR) Yellow Yellow,Straw,Pl yellow Clarity (test code=CLAR) Clear Clear Specific [place] (test 1.028 1.001-1.035 code=SPGR) pH (test code=PH) [...] code=DERRICK) Few Calcium Oxalate /HPF CBC with [id number] 02:43:00 Test Item Value Reference Range Comments [...] Lymph Abs (test code=ALYMPH) 2.5 K/cumm 0.5-4.6 Aiken Abs (test code=AMONO) 0.6 K/cumm 0.0-1.2 Eos Abs (test code=AEOS) 0.13 K/cumm 0.00-0.74 Baso Abs (test code=ABASO) 0.0 K/cumm 0.00-0.21 Valproic Acid (Depakote),[id number] 07:46:00 Test Item Value Reference Range Comments Valproic Acid (test code=VALP) 63.2 ug/mL 50.0-100.0 POC Glucose, [id number] 19:39:00 Test Item Value Reference Range Comments POC Glucose (test 204 mg/dL 70-115 If you consider your patient code=POCGLUC) critically ill, the Ismael Accu-Chek InformII metershould not be used for Glucose determinations.Draw a venous Glucose and send to the Main Lab for Analysis. Comprehensive Metabolic [id number] 05:27:00 Test Item Value Reference Range Comments [...] race is not provided, and the patient isAfrican-Martiniquais, multiply by 1.212. If sex is not provided, and thepatient is female, multiply by 0.742. Results for patients <18 years ofage have not been validated by the MDRD study and should be interpretedwith caution.eGFR Result Interpretation:eGFR > or=60 is in the Normal RangeeGFR < 60 may mean kidney diseaseeGFR < 15 may mean kidney failureRanges recommended by the National Kidney Foundation,http://nkdep.nih .gov [id number] 05:27:00 Test Item Value Reference Range Comments [...] (test <0.01 g/dL 0.00-0.01 code=ETOHU) CBC with [id number] 05:08:00 Test Item Value Reference Range Comments [...] Lymph Abs (test code=ALYMPH) 2.8 K/cumm 0.5-4.6 Aiken Abs (test code=AMONO) 0.6 K/cumm 0.0-1.2 Eos Abs (test code=AEOS) 0.12 K/cumm 0.00-0.74 Baso Abs (test code=ABASO) 0.1 K/cumm 0.00-0.21 Urinalysis [id number] 05:07:00 Test Item Value Reference Range Comments Color (test code=COLOR) Straw Yellow,Straw,Pl yellow Clarity (test code=CLAR) Clear Clear Specific [place] (test code=SPGR) 1.005 1.001-1.035 pH (test code=PH) [...]
--- NOTE | 2018-06-01 03:09 | EDPHYS ---
Physician Documentation [facility] Name: Bereket Gardner Age: 43 yrs Sex: Male : 1975 Arrival Date: 06/01/2018 Time: 02:37 Bed 20 Private MD: ED Physician Juan Rivas HPI: 06/01 02:58 This 43 yrs old Male presents to ER via EMS with complaints of Medication rn Refill, Ankle Injury. 02:58 The patient presents to the emergency department requesting refill(s) for: edgar Guo depakochristoph. The patient has experienced similar episodes in the past. The patient has been recently seen at the [facility] Emergency Department. Just seen a few hours ago here for ankle injury, reports went back home, tripped over shoes and fell down some steps again, reports re-injured right ankle, doesn't feel broken, is ambulatory. NO head injury. Denies focal pain. NO loc. Also reports that needs to go to psychiatric facility for medication refill, denies suicidal ideation/homicidal ideation. Reports needs his medication so that he can get a job. . Historical: - Allergies: 02:43 Aspirin; aa1 02:43 Ibuprofen; aa1 - Home Meds: 02:43 Depakote 500 mg Oral TbEC 1 tab 1 am and 2 at night [Active]; trazodone 50 mg Oral tab aa1 1 tab nightly [Active]; hydroxyzine HCl 50 mg Oral tab 2 tabs three times a day [Active]; Cogentin Oral [Active]; - PMHx: 02:43 Anemia; Anxiety; Bipolar disorder; enlarged heart and liver; High Cholesterol; aa1 Hypertension; Schizophrenia; - Immunization history:: Flu vaccine is not up to date. - Social history:: Smoking status: Patient uses tobacco products, smokes one-half pack cigarettes per day, Patient uses alcohol, Patient/guardian denies using street drugs, IV drugs. - Ebola Screening: : No symptoms or risks identified at this time. - Family history:: not pertinent. - Hospitalizations: : No recent hospitalization is reported. ROS: 02:58 Constitutional: Negative for fever, chills, and weight loss, Eyes: Negative for injury, rn pain, redness, and discharge, Neck: Negative for injury, pain, and swelling, Cardiovascular: Negative for chest pain, palpitations, and edema, Respiratory: Negative for shortness of breath, cough, wheezing, and pleuritic chest pain, Abdomen/GI: Negative for abdominal pain, nausea, vomiting, diarrhea, and constipation, MS/Extremity: + ankle pain Skin: Negative for injury, rash, and discoloration, Neuro: Negative for headache, weakness, numbness, tingling, and seizure. Exam: 02:58 Constitutional: This is a well developed, well nourished patient who is awake, alert, rn and in no acute distress. Head/Face: Normocephalic, atraumatic. Eyes: Pupils equal round and reactive to light, extra-ocular motions intact. Lids and lashes normal. Conjunctiva and sclera are non-icteric and not injected. Cornea within normal limits. Periorbital areas with no swelling, redness, or edema. Neck: Trachea midline, no thyromegaly or masses palpated, and no cervical lymphadenopathy. Supple, full range of motion without nuchal rigidity, or vertebral point tenderness. No Meningismus. Back: No spinal tenderness. No costovertebral tenderness. Full range of motion. MS/ Extremity: Pulses equal, no cyanosis. Neurovascular intact. Full, normal range of motion. Equal circumference. In ankle brace. Ambulatory without gait abnormality. Neuro: Awake and alert, GCS 15, oriented to person, place, time, and situation. Cranial nerves II-XII grossly intact. Motor strength 5/5 in all extremities. Sensory grossly intact. Cerebellar exam normal. Normal gait. 02:58 Psych: Awake, alert, with orientation to person, place and time. Behavior, mood, and rn affect are within normal limits. Vital Signs: 02:43 BP 138 / 67; Pulse 91; Resp 18; Temp 98.1; Pulse Ox 100% on R/A; Weight 88.45 kg; aa1 Height 5 ft. 5 in. (165.10 cm); Pain 9/10; 02:43 Body Mass Index 32.45 (88.45 kg, 165.10 cm) aa1 MDM: 02:39 Patient medically screened. rn 02:58 Data reviewed: vital signs, nurses notes, and as a result, I will discharge patient. rn Counseling: I had a detailed discussion with the patient and/or guardian regarding: the historical points, exam findings, and any diagnostic results supporting the discharge/admit diagnosis, the need for outpatient follow up, to return to the emergency department if symptoms worsen or persist or if there are any questions or concerns that arise at home. Special discussion: I discussed with the patient/guardian in detail that at this point there is no indication for admission to the hospital. It is understood, however, that if the symptoms persist or worsen the patient needs to return immediately for re-evaluation. Administered Medications: No medications were administered Disposition: 06/01/18 03:08 Discharged to Home. Impression: Sprain of ankle. - Condition is Stable. - Discharge Instructions: Ankle Sprain. - Prescriptions for Depakote 500 mg Oral Tablet - take 1 tablet by ORAL route every 12 hours; 60 tablet. Zoloft 50 mg Oral Tablet - take 1 tablet by ORAL route once daily; 30 tablet. - Medication Reconciliation Form, Thank You Letter, Antibiotic Education, Prescription Opioid Use form. - Follow up: Private Physician; When: As needed; Reason: Recheck today's complaints, Re-evaluation by your physician. - Problem is new. - Symptoms have improved. Signatures: Dispatcher [employer] [facility] Karen Solorzano, RN RN aa1 Juan Rivas MD MD rn Bryson, James, RN RN jb4 Corrections: (The following items were deleted from the chart) 02:55 02:39 Ankle Right 3 View+RAD.RAD.BRZ ordered. [facility] 03:16 03:08 06/01/2018 03:08 Discharged to Home. Impression: Sprain of ankle. Condition is jb4 Stable. Forms are Medication Reconciliation Form, Thank You Letter, Antibiotic Education, Prescription Opioid Use. Follow up: Private Physician; When: As needed; Reason: Recheck today's complaints, Re-evaluation by your physician. Problem is new. Symptoms have improved. rn
--- NOTE | 2018-06-01 03:09 | ER ---
Nurse's Notes [facility] Name: Bereket Gardner Age: 43 yrs Sex: Male : 1975 Arrival Date: 06/01/2018 Time: 02:37 Bed 20 Private MD: Diagnosis: Sprain of ankle Presentation: 06/01 02:39 Presenting complaint: Patient states: he was released from this hospital an hour or 2 aa1 ago for a R ankle injury and got home and fell and hurt it again. Also states he wants to be transferred to [facility] so he can get his medications refilled. Denies suicidal/homicidal thoughts. No obvious injury noted to ankle. Transition of care: patient was not received from another setting of care. Onset of symptoms was June 01, 2018. Risk Assessment: Do you want to hurt yourself or someone else? Patient reports no desire to harm self or others. Initial Sepsis Screen: Does the patient meet any 2 criteria? No. Patient's initial sepsis screen is negative. Does the patient have a suspected source of infection? No. Patient's initial sepsis screen is negative. Care prior to arrival: None. 02:39 Method Of Arrival: EMS: [facility] aa1 02:39 Acuity: ARIA 4 aa1 Triage Assessment: 02:43 General: Appears in no apparent distress. comfortable, unkempt, Behavior is calm, aa1 cooperative. Pain: Denies pain. Historical: - Allergies: 02:43 Aspirin; aa1 02:43 Ibuprofen; aa1 - Home Meds: 02:43 Depakote 500 mg Oral TbEC 1 tab 1 am and 2 at night [Active]; trazodone 50 mg Oral tab aa1 1 tab nightly [Active]; hydroxyzine HCl 50 mg Oral tab 2 tabs three times a day [Active]; Cogentin Oral [Active]; - PMHx: 02:43 Anemia; Anxiety; Bipolar disorder; enlarged heart and liver; High Cholesterol; aa1 Hypertension; Schizophrenia; - Immunization history:: Flu vaccine is not up to date. - Social history:: Smoking status: Patient uses tobacco products, smokes one-half pack cigarettes per day, Patient uses alcohol, Patient/guardian denies using street drugs, IV drugs. - Ebola Screening: : No symptoms or risks identified at this time. - Family history:: not pertinent. - Hospitalizations: : No recent hospitalization is reported. Screenin:56 Abuse screen: Denies threats or abuse. Nutritional screening: No deficits noted. jb4 Tuberculosis screening: No symptoms or risk factors identified. Fall Risk None identified. Assessment: 02:56 General: Appears in no apparent distress. comfortable, Behavior is calm, cooperative, jb4 appropriate for age, Pt reports foot pain. Pt ambulated to the restroom and around the ER. No complaints of pain while ambulating.. Pain: Complains of pain in right foot Pain does not radiate. Pain currently is 2 out of 10 on a pain scale. Neuro: Level of Consciousness is awake, alert, obeys commands, Oriented to person, place, time, situation. Cardiovascular: Patient's skin is warm and dry. Respiratory: Airway is patent Respiratory effort is even, unlabored, Respiratory pattern is regular, symmetrical. GI: No signs and/or symptoms were reported involving the gastrointestinal system. : No signs and/or symptoms were reported regarding the genitourinary system. EENT: No signs and/or symptoms were reported regarding the EENT system. Derm: Skin is intact, Skin is pink, warm \T\ dry. Musculoskeletal: Circulation, motion, and sensation intact. Vital Signs: 02:43 BP 138 / 67; Pulse 91; Resp 18; Temp 98.1; Pulse Ox 100% on R/A; Weight 88.45 kg; aa1 Height 5 ft. 5 in. (165.10 cm); Pain 9/10; 02:43 Body Mass Index 32.45 (88.45 kg, 165.10 cm) aa1 ED Course: 02:37 Patient arrived in ED. aa1 02:39 Juan Rivas MD is Attending Physician. rn 02:41 Triage completed. aa1 02:43 Arm band placed on right wrist. aa1 02:56 Osmar Crook, GEMINI is Primary Nurse. jb4 02:56 Patient has correct armband on for positive identification. Bed in low position. Call jb4 light in reach. Side rails up X 1. Pulse ox on. NIBP on. 03:15 No provider procedures requiring assistance completed. Patient did not have IV access jb4 during this emergency room visit. Administered Medications: No medications were administered Outcome: 03:08 Discharge ordered by . rn 03:15 Discharged to home ambulatory. jb4 03:15 Condition: stable 03:15 Discharge instructions given to patient, Instructed on discharge instructions, follow up and referral plans. medication usage, Demonstrated understanding of instructions, follow-up care, medications, Prescriptions given X 2. 03:16 Patient left the ED. jb4 Signatures: Karen Solorzano, RN RN aa1 Juan Rivas MD MD rn Bryson, James, RN RN jb4
[2018-06-01 03:42] VITALS: BP 138/67; TEMP 98.1; O2SAT 100
== END 2018-06-01 03:16 | disposition home or self-care (01) ==
LOC: ER 02:32
DX: S93.401A Sprain of unspecified ligament of right ankle, initial encounter (principal); W01.0XXA Fall on same level from slipping, tripping and stumbling without subsequent striking against object, initial encounter; Y93.9 Activity, unspecified; Y92.009 Unspecified place in unspecified non-institutional (private) residence as the place of occurrence of the external cause; Z88.6 Allergy status to analgesic agent; F41.9 Anxiety disorder, unspecified; F31.9 Bipolar disorder, unspecified; F17.210 Nicotine dependence, cigarettes, uncomplicated; Z72.0 Tobacco use
CPT/HCPCS: 99283

== ENCOUNTER 2018-06-02 23:56 | Emergency (ER) | payer OTHER ==
--- OUTSIDE RECORDS SUMMARY | 2018-06-02 23:59 | XMS REPORT ---
:1975 [facility] Address [address] [place] [address] Dr. Zuniga [address] [place] [address] Care Team Providers Name Role Phone MADELEINE [...] Acid (test code=VALP) 77.4 ug/mL 50.0-100.0 RPR, [id number] 12:49:00 Test Item Value Reference Range Comments RPR (test code=RPR) Non-Reactive Non-Reactive Thyroid Stimulating Hormone (TSH)2016-10-01 07:49:00 Test Item Value Reference Range Comments TSH (test code=TSH) 6.31 mIU/mL 0.270-4.200 Lipid [id number] 07:41:00 Test Item Value Reference Range Comments Cholesterol (test 162 mg/dL 0-200 code=CHOL) Triglycerides (test 231 mg/dL 9-200 code=TRIG) HDL (test code=HDL) 36 mg/dL 40-60 Chol/HDL (test 4.5 Ratio 0.0-5.0 code=CHOLPHDL) LDL, Calculated (test 80 0-130 (NOTE)RISK OF HEART code=LDLC) DISEASEPublished by Salvadorean Heart AssociationAnalyte Optimal Boderline Increased RiskCHOL <200 200-239 >240TRIG <150 150-199 >200HDL Male: >60 <40HDL Female: >60 <50LDL <100 130-159 >160LDL NEAR OPTIMAL IS 100-129 VLDL (test code=VLDL) 46 mg/dL 5-40 LDL/HDL (test code=LDLPHDL) 2 [id number] 05:39:00 Test Item Value Reference Range Comments [...] Urine (test <0.01 g/dL 0.00-0.01 code=ETOHU) Alcohol/Ethanol, [id number] 05:31:00 Test Item Value Reference Range Comments Alcohol, Ethyl (test <0.01 g/dL 0.00-0.01 Intoxicated 0.080 g/dL or code=ETOH) more Comprehensive Metabolic [id number] 05:31:00 Test Item Value Reference Range Comments [...] race is not provided, and the patient isAfrican-Salvadorean, multiply by 1.212. If sex is not provided, and thepatient is female, multiply by 0.742. Results for patients <18 years ofage have not been validated by the MDRD study and should be interpretedwith caution.eGFR Result Interpretation:eGFR > or=60 is in the Normal RangeeGFR < 60 may mean kidney diseaseeGFR < 15 may mean kidney failureRanges recommended by the National Kidney Foundation,http://nkdep.nih .gov Urinalysis [id number] 05:30:00 Test Item Value Reference Range Comments Color (test code=COLOR) Yellow Yellow,Straw,Pl yellow Clarity (test code=CLAR) Clear Clear Specific Superior (test code=SPGR) 1.006 1.001-1.035 pH (test code=PH) [...] Exam (test code=MEXAM) Not indicated CBC with [id number] 05:19:00 Test Item Value Reference Range Comments [...] Lymph Abs (test code=ALYMPH) 1.7 K/cumm 0.5-4.6 Schley Abs (test code=AMONO) 0.8 K/cumm 0.0-1.2 Eos Abs (test code=AEOS) 0.09 K/cumm 0.00-0.74 Baso Abs (test code=ABASO) 0.0 K/cumm 0.00-0.21 CBC with [id number] 10:15:00 Test Item Value Reference Range Comments [...] Lymph Abs (test code=ALYMPH) 2.4 K/cumm 0.5-4.6 Schley Abs (test code=AMONO) 0.6 K/cumm 0.0-1.2 Eos Abs (test code=AEOS) 0.09 K/cumm 0.00-0.74 Baso Abs (test code=ABASO) 0.1 K/cumm 0.00-0.21 RPR, [id number] 10:10:00 Test Item Value Reference Range Comments RPR (test code=RPR) Non-Reactive Non-Reactive Thyroid Stimulating Hormone (TSH)2016-09-05 09:52:00 Test Item Value Reference Range Comments TSH (test code=TSH) 2.86 mIU/mL 0.270-4.200 Lipid [id number] 09:44:00 Test Item Value Reference Range Comments Cholesterol (test 106 mg/dL 0-200 code=CHOL) Triglycerides (test 167 mg/dL 9-200 code=TRIG) HDL (test code=HDL) 25 mg/dL 40-60 Chol/HDL (test 4.2 Ratio 0.0-5.0 code=CHOLPHDL) LDL, Calculated (test 48 0-130 (NOTE)RISK OF HEART code=LDLC) DISEASEPublished by Salvad[place] Heart AssociationAnalyte Optimal Boderline Increased RiskCHOL <200 200-239 >240TRIG <150 150-199 >200HDL Male: >60 <40HDL Female: >60 <50LDL <100 130-159 >160LDL NEAR OPTIMAL IS 100-129 VLDL (test code=VLDL) 33 mg/dL 5-40 LDL/HDL (test code=LDLPHDL) 2 Valproic Acid (Depakote),[id number] 09:44:00 Test Item Value Reference Range Comments Valproic Acid (test code=VALP) 62.7 ug/mL 50.0-100.0 Comprehensive Metabolic [id number] 09:44:00 Test Item Value Reference Range Comments [...] race is not provided, and the patient isAfrican-Salvadorean, multiply by 1.212. If sex is not [...] the National Kidney Foundation,http://nkdep.nih .gov Comprehensive Metabolic [id number] 03:26:00 Test Item Value Reference Range Comments [...] race is not provided, and the patient isAfrican-Salvadorean, multiply by 1.212. If sex is not provided, and thepatient is female, multiply by 0.742. Results for patients <18 years ofage have not been validated by the MDRD study and should be interpretedwith caution.eGFR Result Interpretation:eGFR > or=60 is in the Normal RangeeGFR < 60 may mean kidney diseaseeGFR < 15 may mean kidney failureRanges recommended by the National Kidney Foundation,http://nkdep.nih .gov [id number] 03:06:00 Test Item Value Reference Range Comments [...] Urine (test <0.01 g/dL 0.00-0.01 code=ETOHU) Troponin [id number] 03:06:00 Test Item Value Reference Range Comments Troponin T (test code=SHAMIKA) <0.010 ng/mL 0.000-0.090 Urinalysis [id number] 02:57:00 Test Item Value Reference Range Comments Color (test code=COLOR) Yellow Yellow,Straw,Pl yellow Clarity (test code=CLAR) Clear Clear Specific Superior (test 1.028 1.001-1.035 code=SPGR) pH (test code=PH) [...] code=DERRICK) Few Calcium Oxalate /HPF CBC with [id number] 02:43:00 Test Item Value Reference Range Comments [...] Lymph Abs (test code=ALYMPH) 2.5 K/cumm 0.5-4.6 Schley Abs (test code=AMONO) 0.6 K/cumm 0.0-1.2 Eos Abs (test code=AEOS) 0.13 K/cumm 0.00-0.74 Baso Abs (test code=ABASO) 0.0 K/cumm 0.00-0.21 Valproic Acid (Depakote),[id number] 07:46:00 Test Item Value Reference Range Comments Valproic Acid (test code=VALP) 63.2 ug/mL 50.0-100.0 POC Glucose, [id number] 19:39:00 Test Item Value Reference Range Comments POC Glucose (test 204 mg/dL 70-115 If you consider your patient code=POCGLUC) critically ill, the Ismael Accu-Chek InformII metershould not be used for Glucose determinations.Draw a venous Glucose and send to the Main Lab for Analysis. Comprehensive Metabolic [id number] 05:27:00 Test Item Value Reference Range Comments [...] race is not provided, and the patient isAfrican-Salvadorean, multiply by 1.212. If sex is not provided, and thepatient is female, multiply by 0.742. Results for patients <18 years ofage have not been validated by the MDRD study and should be interpretedwith caution.eGFR Result Interpretation:eGFR > or=60 is in the Normal RangeeGFR < 60 may mean kidney diseaseeGFR < 15 may mean kidney failureRanges recommended by the National Kidney Foundation,http://nkdep.nih .gov [id number] 05:27:00 Test Item Value Reference Range Comments [...] (test <0.01 g/dL 0.00-0.01 code=ETOHU) CBC with [id number] 05:08:00 Test Item Value Reference Range Comments [...] Lymph Abs (test code=ALYMPH) 2.8 K/cumm 0.5-4.6 Schley Abs (test code=AMONO) 0.6 K/cumm 0.0-1.2 Eos Abs (test code=AEOS) 0.12 K/cumm 0.00-0.74 Baso Abs (test code=ABASO) 0.1 K/cumm 0.00-0.21 Urinalysis [id number] 05:07:00 Test Item Value Reference Range Comments Color (test code=COLOR) Straw Yellow,Straw,Pl yellow Clarity (test code=CLAR) Clear Clear Specific Superior (test code=SPGR) 1.005 1.001-1.035 pH (test code=PH) [...]
[2018-06-03 01:28] LABS: Absolute Lymphocytes (CBC) 2.5 K/uL (0.7-4.9); Absolute Monocytes 1.1 K/uL (0.1-1.3); Absolute Neutrophil 6.5 K/uL (1.8-8.0); Basophils % 0.4 % (0-1.3); Eosinophils % 1.2 % (0-4.4); Hematocrit 44.9 % (39.6-49.0); Lymphocytes % 24.6 % (15.3-44.8); MPV 9.5 fL (7.6-11.3); Monocytes % 10.7 % (3.3-12.3); RBC Red Blood Cell Count 5.11 M/uL (4.33-5.43)
[2018-06-03 01:32] LABS: Protime INR 1.03
[2018-06-03 01:38] LABS: Barbiturates NEGATIVE (NEGATIVE); Benzodiazepines NEGATIVE (NEGATIVE); Cocaine NEGATIVE (NEGATIVE); METHAMPHETAM NEGATIVE (NEGATIVE); Methadone NEGATIVE (NEGATIVE); Opiates NEGATIVE (NEGATIVE); Phencyclidine NEGATIVE (NEGATIVE); THC Cannibis NEGATIVE (NEGATIVE)
[2018-06-03 02:08] LABS: ALT/SGPT 35 U/L (12-78); AST/SGOT 40 U/L (15-37); Albumin 3.7 g/dL (3.4-5.0); Alkaline Phosphatase 77 U/L (45-117); BUN Blood Urea Nitrogen 11 mg/dL (7-18); Bicarbonate 27 mmol/L (21-32); Bilirubin Direct < 0.1 mg/dL (0-0.2); Bilirubin Total 0.2 mg/dL (0.2-1.0); Glucose Level 91 mg/dL (74-106); Potassium 3.3 mmol/L (3.5-5.1); Protein, Total 7.1 g/dL (6.4-8.2); Sodium Level 143 mmol/L (136-145)
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
--- NOTE | 2018-06-03 03:42 | ER ---
Nurse's Notes [facility] Name: Bereket Gardner Age: 43 yrs Sex: Male : 1975 Arrival Date: 06/02/2018 Time: 23:57 Bed 7 Private MD: Diagnosis: Schizophrenia, unspecified;Hypokalemia Presentation: 06/03 00:00 Presenting complaint: EMS states: Reports pt was at a convenient store, PD on site ea called EMS, reported he was having psych issues. Pt denied suicidal and homicidal ideations. Transition of care: patient was not received from another setting of care. Onset of symptoms was June 03, 2018. Risk Assessment: Do you want to hurt yourself or someone else? Patient reports no desire to harm self or others. Initial Sepsis Screen: Does the patient meet any 2 criteria? No. Patient's initial sepsis screen is negative. Does the patient have a suspected source of infection? No. Patient's initial sepsis screen is negative. Care prior to arrival: None. 00:00 Method Of Arrival: EMS: [facility] ea 00:00 Acuity: ARIA 2 ea Triage Assessment: 00:12 General: Appears in no apparent distress. Behavior is cooperative. Pain: Denies pain. ea Neuro: Level of Consciousness is awake, alert, obeys commands, Oriented to person, place, time. Cardiovascular: Patient's skin is warm and dry. Respiratory: Airway is patent Respiratory effort is even, unlabored, Respiratory pattern is regular, symmetrical. GI: No signs and/or symptoms were reported involving the gastrointestinal system. : No signs and/or symptoms were reported regarding the genitourinary system. Derm: Skin is pink, warm \T\ dry. Historical: - Allergies: 00:15 Aspirin; ea 00:15 Ibuprofen; ea - Home Meds: 00:15 Cogentin Oral [Active]; Depakote 500 mg Oral TbEC 1 tab 1 am and 2 at night [Active]; ea fenofibrate 145 MG Oral once daily [Active]; hydroxyzine HCl 50 mg Oral tab 2 tabs three times a day [Active]; Invega Oral [Active]; Risperdal Oral [Active]; trazodone 50 mg Oral tab 1 tab nightly [Active]; - PMHx: 00:15 Schizophrenia; Hypertension; High Cholesterol; enlarged heart and liver; Bipolar ea disorder; Anxiety; Anemia; - Immunization history:: Adult Immunizations up to date. - Social history:: Smoking status: Patient uses tobacco products, smokes one-half pack cigarettes per day. - Ebola Screening: : No symptoms or risks identified at this time. Screenin:07 Abuse screen: Denies threats or abuse. Nutritional screening: No deficits noted. ea Tuberculosis screening: No symptoms or risk factors identified. Fall Risk None identified. Assessment: 00:00 Reassessment: see triage assessment. ea 01:07 Reassessment: Patient and/or family updated on plan of care and expected duration. Pain ea level reassessed. Patient denies pain at this time. 01:37 Reassessment: Patient and/or family updated on plan of care and expected duration. Pain ea level reassessed. Pt resting with eyes closed, respirations even and unlabored, chest expansions even and symmetrical. 02:00 Reassessment: Patient and/or family updated on plan of care and expected duration. Pain ea level reassessed. Pt resting with eyes closed, respirations even and unlabored, chest expansions even and symmetrical. No s/s of pain or discomfort noted at this time. 03:54 Reassessment: Patient and/or family updated on plan of care and expected duration. Pain ea level reassessed. Patient is alert, oriented x 3, equal unlabored respirations, skin warm/dry/pink. Discharge instructions given to patient, verbalized the understanding of instruction Patient denies pain at this time. Vital Signs: 00:08 Resp 18; Temp 98(O); Pulse Ox 99% ; ea 00:10 BP 128 / 62; Pulse 80; Resp 18; Pulse Ox 99% ; ea 01:50 BP 120 / 70; Pulse 78; Resp 18; Pulse Ox 99% ; ea 01:50 BP 118 / 80; Pulse 78; Resp 18; Temp 97.8(TE); Pulse Ox 99% on R/A; ea ED Course: 06/02 23:57 Patient arrived in ED. aa1 23:57 Christiano Torres PA is PHCP. jr8 23:57 Stuart Dumont MD is Attending Physician. jr8 06/03 00:07 Triage completed. ea 00:13 Patient has correct armband on for positive identification. Placed in gown. Bed in low ea position. Call light in reach. 00:13 Arm band placed on right wrist. Patient placed in an exam room, on a stretcher, on ea pulse oximetry. 00:30 Inserted saline lock: 20 gauge in right antecubital area, using aseptic technique. ea Blood collected. 01:07 Dorinda Posey, RN is Primary Nurse. ea 03:55 No provider procedures requiring assistance completed. IV discontinued, intact, ea bleeding controlled, No redness/swelling at site. Pressure dressing applied. Administered Medications: 03:54 Drug: Potassium Effervescent Tablet 25 mEq Route: PO; ea 04:04 Follow up: Response: No adverse reaction; Medication administered at discharge. ea Outcome: 03:41 Discharge ordered by . florentin 03:58 Condition: improved ea 03:58 Discharge instructions given to patient, Instructed on discharge instructions, follow up and referral plans. Demonstrated understanding of instructions, follow-up care. 04:05 Discharged to home ea 04:16 Patient left the ED. aa1 Signatures: Karen Solorzano RN RN aa1 Stuart Dumont MD MD cha Roszak, Josh, PA PA jr8 Dornida Posey, RN RN
[2018-06-03] MEDS ORDERED: POTASSIUM 25 MEQ EFFERV TAB ONE (03:56)
[2018-06-03 04:23] VITALS: O2SAT 99
[2018-06-03 04:26] VITALS: BP 118/80; TEMP 97.8
[2018-06-03 05:34] LABS: Urine Blood NEGATIVE (NEG); Urine Glucose NEGATIVE (NEG); Urine Protein NEGATIVE (NEG); Urine Specific Gravity 1.025 (1.005-1.030); Urine pH 5.5 (5.0-7.0)
== END 2018-06-03 04:16 | disposition home or self-care (01) ==
LOC: ER 23:56
DX: F20.9 Schizophrenia, unspecified (principal); E87.6 Hypokalemia; F31.9 Bipolar disorder, unspecified; F41.9 Anxiety disorder, unspecified; E78.00 Pure hypercholesterolemia, unspecified; I10 Essential (primary) hypertension; D64.9 Anemia, unspecified; F17.210 Nicotine dependence, cigarettes, uncomplicated; Z79.899 Other long term (current) drug therapy
CPT/HCPCS: 36415; 80048; 80076; 80307; 80320; 80329; 81003; 85025; 85610; 85730; 99284

== ENCOUNTER 2018-06-05 23:47 | Emergency (ER) | payer OTHER ==
--- OUTSIDE RECORDS SUMMARY | 2018-06-05 23:50 | XMS REPORT ---
:1975 [facility] Address [address] [place] [address] Dr. Zuniga [address] [place] [address] Care Team Providers Name Role Phone MADELEINE [...] Acid (test code=VALP) 77.4 ug/mL 50.0-100.0 RPR, [id number] 12:49:00 Test Item Value Reference Range Comments RPR (test code=RPR) Non-Reactive Non-Reactive Thyroid Stimulating Hormone (TSH)2016-10-01 07:49:00 Test Item Value Reference Range Comments TSH (test code=TSH) 6.31 mIU/mL 0.270-4.200 Lipid [id number] 07:41:00 Test Item Value Reference Range Comments Cholesterol (test 162 mg/dL 0-200 code=CHOL) Triglycerides (test 231 mg/dL 9-200 code=TRIG) HDL (test code=HDL) 36 mg/dL 40-60 Chol/HDL (test 4.5 Ratio 0.0-5.0 code=CHOLPHDL) LDL, Calculated (test 80 0-130 (NOTE)RISK OF HEART code=LDLC) DISEASEPublished by [place]zbek Heart AssociationAnalyte Optimal Boderline Increased RiskCHOL <200 200-239 >240TRIG <150 150-199 >200HDL Male: >60 <40HDL Female: >60 <50LDL <100 130-159 >160LDL NEAR OPTIMAL IS 100-129 VLDL (test code=VLDL) 46 mg/dL 5-40 LDL/HDL (test code=LDLPHDL) 2 [id number] 05:39:00 Test Item Value Reference Range Comments [...] Urine (test <0.01 g/dL 0.00-0.01 code=ETOHU) Alcohol/Ethanol, [id number] 05:31:00 Test Item Value Reference Range Comments Alcohol, Ethyl (test <0.01 g/dL 0.00-0.01 Intoxicated 0.080 g/dL or code=ETOH) more Comprehensive Metabolic [id number] 05:31:00 Test Item Value Reference Range Comments [...] race is not provided, and the patient isAfrican-Uzbek, multiply by 1.212. If sex is not provided, and thepatient is female, multiply by 0.742. Results for patients <18 years ofage have not been validated by the MDRD study and should be interpretedwith caution.eGFR Result Interpretation:eGFR > or=60 is in the Normal RangeeGFR < 60 may mean kidney diseaseeGFR < 15 may mean kidney failureRanges recommended by the National Kidney Foundation,http://nkdep.nih .gov Urinalysis [id number] 05:30:00 Test Item Value Reference Range Comments Color (test code=COLOR) Yellow Yellow,Straw,Pl yellow Clarity (test code=CLAR) Clear Clear Specific [place] (test code=SPGR) 1.006 1.001-1.035 pH (test code=PH) [...] Exam (test code=MEXAM) Not indicated CBC with [id number] 05:19:00 Test Item Value Reference Range Comments [...] Lymph Abs (test code=ALYMPH) 1.7 K/cumm 0.5-4.6 [place] Abs (test code=AMONO) 0.8 K/cumm 0.0-1.2 Eos Abs (test code=AEOS) 0.09 K/cumm 0.00-0.74 Baso Abs (test code=ABASO) 0.0 K/cumm 0.00-0.21 CBC with [id number] 10:15:00 Test Item Value Reference Range Comments [...] Lymph Abs (test code=ALYMPH) 2.4 K/cumm 0.5-4.6 [place] Abs (test code=AMONO) 0.6 K/cumm 0.0-1.2 Eos Abs (test code=AEOS) 0.09 K/cumm 0.00-0.74 Baso Abs (test code=ABASO) 0.1 K/cumm 0.00-0.21 RPR, [id number] 10:10:00 Test Item Value Reference Range Comments RPR (test code=RPR) Non-Reactive Non-Reactive Thyroid Stimulating Hormone (TSH)2016-09-05 09:52:00 Test Item Value Reference Range Comments TSH (test code=TSH) 2.86 mIU/mL 0.270-4.200 Lipid [id number] 09:44:00 Test Item Value Reference Range Comments Cholesterol (test 106 mg/dL 0-200 code=CHOL) Triglycerides (test 167 mg/dL 9-200 code=TRIG) HDL (test code=HDL) 25 mg/dL 40-60 Chol/HDL (test 4.2 Ratio 0.0-5.0 code=CHOLPHDL) LDL, Calculated (test 48 0-130 (NOTE)RISK OF HEART code=LDLC) DISEASEPublished by [place] Heart AssociationAnalyte Optimal Boderline Increased RiskCHOL <200 200-239 >240TRIG <150 150-199 >200HDL Male: >60 <40HDL Female: >60 <50LDL <100 130-159 >160LDL NEAR OPTIMAL IS 100-129 VLDL (test code=VLDL) 33 mg/dL 5-40 LDL/HDL (test code=LDLPHDL) 2 Valproic Acid (Depakote),[id number] 09:44:00 Test Item Value Reference Range Comments Valproic Acid (test code=VALP) 62.7 ug/mL 50.0-100.0 Comprehensive Metabolic [id number] 09:44:00 Test Item Value Reference Range Comments [...] race is not provided, and the patient isAfrican-Uz[place], multiply by 1.212. If sex is not [...] the National Kidney Foundation,http://nkdep.nih .gov Comprehensive Metabolic [id number] 03:26:00 Test Item Value Reference Range Comments [...] race is not provided, and the patient isAfrican-[place], multiply by 1.212. If sex is not provided, and thepatient is female, multiply by 0.742. Results for patients <18 years ofage have not been validated by the MDRD study and should be interpretedwith caution.eGFR Result Interpretation:eGFR > or=60 is in the Normal RangeeGFR < 60 may mean kidney diseaseeGFR < 15 may mean kidney failureRanges recommended by the National Kidney Foundation,http://nkdep.nih .gov [id number] 03:06:00 Test Item Value Reference Range Comments [...] Urine (test <0.01 g/dL 0.00-0.01 code=ETOHU) Troponin [id number] 03:06:00 Test Item Value Reference Range Comments Troponin T (test code=SHAMIKA) <0.010 ng/mL 0.000-0.090 Urinalysis [id number] 02:57:00 Test Item Value Reference Range Comments Color (test code=COLOR) Yellow Yellow,Straw,Pl yellow Clarity (test code=CLAR) Clear Clear Specific [place] (test 1.028 1.001-1.035 code=SPGR) pH (test code=PH) [...] code=DERRICK) Few Calcium Oxalate /HPF CBC with [id number] 02:43:00 Test Item Value Reference Range Comments [...] Lymph Abs (test code=ALYMPH) 2.5 K/cumm 0.5-4.6 [place] Abs (test code=AMONO) 0.6 K/cumm 0.0-1.2 Eos Abs (test code=AEOS) 0.13 K/cumm 0.00-0.74 Baso Abs (test code=ABASO) 0.0 K/cumm 0.00-0.21 Valproic Acid (Depakote),[id number] 07:46:00 Test Item Value Reference Range Comments Valproic Acid (test code=VALP) 63.2 ug/mL 50.0-100.0 POC Glucose, [id number] 19:39:00 Test Item Value Reference Range Comments POC Glucose (test 204 mg/dL 70-115 If you consider your patient code=POCGLUC) critically ill, the Ismael Accu-Chek InformII metershould not be used for Glucose determinations.Draw a venous Glucose and send to the Main Lab for Analysis. Comprehensive Metabolic [id number] 05:27:00 Test Item Value Reference Range Comments [...] race is not provided, and the patient isAfrican-Uz[place], multiply by 1.212. If sex is not provided, and thepatient is female, multiply by 0.742. Results for patients <18 years ofage have not been validated by the MDRD study and should be interpretedwith caution.eGFR Result Interpretation:eGFR > or=60 is in the Normal RangeeGFR < 60 may mean kidney diseaseeGFR < 15 may mean kidney failureRanges recommended by the National Kidney Foundation,http://nkdep.nih .gov [id number] 05:27:00 Test Item Value Reference Range Comments [...] (test <0.01 g/dL 0.00-0.01 code=ETOHU) CBC with [id number] 05:08:00 Test Item Value Reference Range Comments [...] Lymph Abs (test code=ALYMPH) 2.8 K/cumm 0.5-4.6 [place] Abs (test code=AMONO) 0.6 K/cumm 0.0-1.2 Eos Abs (test code=AEOS) 0.12 K/cumm 0.00-0.74 Baso Abs (test code=ABASO) 0.1 K/cumm 0.00-0.21 Urinalysis [id number] 05:07:00 Test Item Value Reference Range Comments Color (test code=COLOR) Straw Yellow,Straw,Pl yellow Clarity (test code=CLAR) Clear Clear Specific [place] (test code=SPGR) 1.005 1.001-1.035 pH (test code=PH) [...]
--- NOTE | 2018-06-06 00:19 | EDPHYS ---
Physician Documentation [facility] Name: Bereket Gardner Age: 43 yrs Sex: Male : 1975 Arrival Date: 06/05/2018 Time: 23:52 Bed 17 Private MD: ED Physician Tariq Correia HPI: 06/06 00:15 This 43 yrs old Male presents to ER via EMS with complaints of PAIN IN ANKLE. gs 00:15 The complaints affect the right ankle. Onset: The symptoms/episode began/occurred gs yesterday. Associated signs and symptoms: Pertinent negatives: swelling, tingling, weakness. Modifying factors: The symptoms are alleviated by elevation of extremity, the symptoms are aggravated by wearing shoes. Severity of symptoms: At their worst the symptoms were very mild, in the emergency department the symptoms are unchanged. The patient has experienced similar episodes in the past, a few times. Historical: - Allergies: 00:02 Aspirin; bb 00:02 Ibuprofen; bb - Home Meds: 00:02 Unable to obtain [Active]; bb - PMHx: 00:02 Anemia; Anxiety; Bipolar disorder; enlarged heart and liver; High Cholesterol; bb Hypertension; Schizophrenia; - Immunization history:: Adult Immunizations unknown. - Social history:: Smoking status: Patient uses tobacco products, smokes one-half pack cigarettes per day. - Ebola Screening: : No symptoms or risks identified at this time. ROS: 00:15 Abdomen/GI: Positive for nausea, ABLE TO EAT. gs 00:15 All other systems are negative. Exam: 00:15 Head/Face: Normocephalic, atraumatic. Eyes: Pupils equal round and reactive to light, gs extra-ocular motions intact. Lids and lashes normal. Conjunctiva and sclera are non-icteric and not injected. Cornea within normal limits. Periorbital areas with no swelling, redness, or edema. ENT: Nares patent. No nasal discharge, no septal abnormalities noted. Tympanic membranes are normal and external auditory canals are clear. Oropharynx with no redness, swelling, or masses, exudates, or evidence of obstruction, uvula midline. Mucous membranes moist. Neck: Trachea midline, no thyromegaly or masses palpated, and no cervical lymphadenopathy. Supple, full range of motion without nuchal rigidity, or vertebral point tenderness. No Meningismus. Chest/axilla: Normal chest wall appearance and motion. Nontender with no deformity. No lesions are appreciated. Cardiovascular: Regular rate and rhythm with a normal S1 and S2. No gallops, murmurs, or rubs. Normal PMI, no JVD. No pulse deficits. Respiratory: Lungs have equal breath sounds bilaterally, clear to auscultation and percussion. No rales, rhonchi or wheezes noted. No increased work of breathing, no retractions or nasal flaring. Abdomen/GI: Soft, non-tender, with normal bowel sounds. No distension or tympany. No guarding or rebound. No evidence of tenderness throughout. Back: No spinal tenderness. No costovertebral tenderness. Full range of motion. Skin: Warm, dry with normal turgor. Normal color with no rashes, no lesions, and no evidence of cellulitis. Neuro: Awake and alert, GCS 15, oriented to person, place, time, and situation. Cranial nerves II-XII grossly intact. Motor strength 5/5 in all extremities. Sensory grossly intact. Cerebellar exam normal. Normal gait. 00:15 Constitutional: The patient appears alert, awake. 00:15 Musculoskeletal/extremity: ROM: no acute changes, Circulation is intact in all extremities. Joints: the right ankle displays tenderness. Vital Signs: 06/05 23:55 BP 131 / 65; Pulse 92; Resp 18 S; Temp 98.1(O); Pulse Ox 98% on R/A; Weight 85.73 kg bb (R); Height 5 ft. 5 in. (165.10 cm) (R); Pain 10/10; 23:55 Body Mass Index 31.45 (85.73 kg, 165.10 cm) bb MDM: 06/06 00:14 Patient medically screened. gs 00:15 Data reviewed: vital signs, nurses notes. Response to treatment: the patient's symptoms gs have markedly improved after treatment, and as a result, I will discharge patient. 06/06 00:40 Order name: Denzel Wrap; Complete Time: 00:40 tl2 Administered Medications: 00:40 Drug: Tylenol 650 mg Route: PO; tl2 00:40 Follow up: Response: No adverse reaction; Medication administered at discharge. tl2 00:41 Follow up: Response: No adverse reaction; Medication administered at discharge. tl2 Disposition: 06/06/18 00:18 Discharged to Home. Impression: Sprain of ankle. - Condition is Stable. - Discharge Instructions: Ankle Sprain. - Medication Reconciliation Form, Thank You Letter, Antibiotic Education, Prescription Opioid Use form. - Follow up: Private Physician; When: 2 - 3 days; Reason: Re-evaluation by your physician. Signatures: Yanet Quigley RN RN bb Rose Jasso RN RN tl2 Tariq Correia MD MD gs Corrections: (The following items were deleted from the chart) 00:41 00:18 06/06/2018 00:18 Discharged to Home. Impression: Sprain of ankle. Condition is tl2 Stable. Forms are Medication Reconciliation Form, Thank You Letter, Antibiotic Education, Prescription Opioid Use. Follow up: Private Physician; When: 2 - 3 days; Reason: Re-evaluation by your physician. gs
--- NOTE | 2018-06-06 00:19 | ER ---
Nurse's Notes [facility] Name: Bereket Gardner Age: 43 yrs Sex: Male : 1975 Arrival Date: 06/05/2018 Time: 23:52 Bed 17 Private MD: Diagnosis: Sprain of ankle Presentation: 06/05 23:55 Presenting complaint: EMS states: they were toned out for pt c/o abdominal pain and bb vomiting with right knee pain. Transition of care: patient was not received from another setting of care. Onset of symptoms was June 06, 2018. Risk Assessment: Do you want to hurt yourself or someone else? Patient reports no desire to harm self or others. Initial Sepsis Screen: Does the patient meet any 2 criteria? No. Patient's initial sepsis screen is negative. Does the patient have a suspected source of infection? No. Patient's initial sepsis screen is negative. 23:55 Method Of Arrival: EMS: [facility] 23:55 Acuity: ARIA 3 bb 06/06 00:04 Care prior to arrival: Glucose check: 120. bb Historical: - Allergies: 00:02 Aspirin; bb 00:02 Ibuprofen; bb - Home Meds: 00:02 Unable to obtain [Active]; bb - PMHx: 00:02 Anemia; Anxiety; Bipolar disorder; enlarged heart and liver; High Cholesterol; bb Hypertension; Schizophrenia; - Immunization history:: Adult Immunizations unknown. - Social history:: Smoking status: Patient uses tobacco products, smokes one-half pack cigarettes per day. - Ebola Screening: : No symptoms or risks identified at this time. Screenin:00 Abuse screen: Denies threats or abuse. Nutritional screening: No deficits noted. tl2 Tuberculosis screening: No symptoms or risk factors identified. Fall Risk None identified. Assessment: 00:00 General: Appears in no apparent distress. comfortable, Behavior is calm, cooperative, tl2 appropriate for age. General: Appears unkempt. Pain: Complains of pain in right ankle. Neuro: Level of Consciousness is awake, alert, obeys commands, Oriented to person, place, patient presents with grandiose delusions, which is baseline behavior. Cardiovascular: Denies chest pain. Respiratory: Airway is patent Respiratory effort is even, unlabored, Respiratory pattern is regular, symmetrical. GI: No signs and/or symptoms were reported involving the gastrointestinal system. : No signs and/or symptoms were reported regarding the genitourinary system. Derm: Skin is pink, warm \T\ dry. Musculoskeletal: Circulation, motion, and sensation intact. Swelling absent. Vital Signs: 06/05 23:55 BP 131 / 65; Pulse 92; Resp 18 S; Temp 98.1(O); Pulse Ox 98% on R/A; Weight 85.73 kg bb (R); Height 5 ft. 5 in. (165.10 cm) (R); Pain 10/10; 23:55 Body Mass Index 31.45 (85.73 kg, 165.10 cm) ED Course: 23:52 Patient arrived in ED. tl2 23:53 Tariq Correia MD is Attending Physician. 23:55 Arm band placed on Patient placed in an exam room, on a stretcher. bb 06/06 00:00 Patient has correct armband on for positive identification. Bed in low position. Call tl2 light in reach. Side rails up X 1. 00:00 No provider procedures requiring assistance completed. Patient did not have IV access tl2 during this emergency room visit. 00:01 Triage completed. bb 00:36 Rose Jasso RN is Primary Nurse. tl2 Administered Medications: 00:40 Drug: Tylenol 650 mg Route: PO; tl2 00:40 Follow up: Response: No adverse reaction; Medication administered at discharge. tl2 00:41 Follow up: Response: No adverse reaction; Medication administered at discharge. tl2 Outcome: 00:18 Discharge ordered by . 00:39 Discharged to home ambulatory. tl2 00:39 Condition: stable 00:39 Discharge instructions given to patient, Instructed on discharge instructions, follow up and referral plans. Demonstrated understanding of instructions, follow-up care. 00:41 Patient left the ED. tl2 Signatures: Yanet Quigley RN RN bb Rose Jasso RN RN tl2 Tariq Correia MD MD gs Corrections: (The following items were deleted from the chart) 00:04 06/05 23:55 Care prior to arrival: None. farideh gong
[2018-06-06] MEDS ORDERED: ACETAMINOPHEN 325 MG TABLET ONE (00:28)
[2018-06-06 01:46] VITALS: BP 131/65; TEMP 98.1; O2SAT 98
== END 2018-06-06 00:41 | disposition home or self-care (01) ==
LOC: ER 23:47
DX: S93.401A Sprain of unspecified ligament of right ankle, initial encounter (principal); X58.XXXA Exposure to other specified factors, initial encounter; Z88.6 Allergy status to analgesic agent

== ENCOUNTER 2018-12-19 19:35 | Emergency (ER) | payer OTHER ==
--- OUTSIDE RECORDS SUMMARY | 2018-12-19 19:38 | XMS REPORT ---
:1975 [facility] Address [address] [place] [address] Dr. Zuniga [address] [place] [address] Care Team Providers Name Role Phone MADELEINE [...] Acid (test code=VALP) 77.4 ug/mL 50.0-100.0 RPR, [id number] 12:49:00 Test Item Value Reference Range Comments RPR (test code=RPR) Non-Reactive Non-Reactive Thyroid Stimulating Hormone (TSH)2016-10-01 07:49:00 Test Item Value Reference Range Comments TSH (test code=TSH) 6.31 mIU/mL 0.270-4.200 Lipid [id number] 07:41:00 Test Item Value Reference Range Comments Cholesterol (test 162 mg/dL 0-200 code=CHOL) Triglycerides (test 231 mg/dL 9-200 code=TRIG) HDL (test code=HDL) 36 mg/dL 40-60 Chol/HDL (test 4.5 Ratio 0.0-5.0 code=CHOLPHDL) LDL, Calculated (test 80 0-130 (NOTE)RISK OF HEART code=LDLC) DISEASEPublished by [place] Heart AssociationAnalyte Optimal Boderline Increased RiskCHOL <200 200-239 >240TRIG <150 150-199 >200HDL Male: >60 <40HDL Female: >60 <50LDL <100 130-159 >160LDL NEAR OPTIMAL IS 100-129 VLDL (test code=VLDL) 46 mg/dL 5-40 LDL/HDL (test code=LDLPHDL) 2 [id number] 05:39:00 Test Item Value Reference Range Comments [...] Urine (test <0.01 g/dL 0.00-0.01 code=ETOHU) Alcohol/Ethanol, [id number] 05:31:00 Test Item Value Reference Range Comments Alcohol, Ethyl (test <0.01 g/dL 0.00-0.01 Intoxicated 0.080 g/dL or code=ETOH) more Comprehensive Metabolic [id number] 05:31:00 Test Item Value Reference Range Comments [...] race is not provided, and the patient isAfrican-Egyptian, multiply by 1.212. If sex is not provided, and thepatient is female, multiply by 0.742. Results for patients <18 years ofage have not been validated by the MDRD study and should be interpretedwith caution.eGFR Result Interpretation:eGFR > or=60 is in the Normal RangeeGFR < 60 may mean kidney diseaseeGFR < 15 may mean kidney failureRanges recommended by the National Kidney Foundation,http://nkdep.nih .gov Urinalysis [id number] 05:30:00 Test Item Value Reference Range Comments Color (test code=COLOR) Yellow Yellow,Straw,Pl yellow Clarity (test code=CLAR) Clear Clear Specific [place] (test code=SPGR) 1.006 1.001-1.035 pH (test code=PH) [...] Exam (test code=MEXAM) Not indicated CBC with [id number] 05:19:00 Test Item Value Reference Range Comments [...] Lymph Abs (test code=ALYMPH) 1.7 K/cumm 0.5-4.6 [place] Abs (test code=AMONO) 0.8 K/cumm 0.0-1.2 Eos Abs (test code=AEOS) 0.09 K/cumm 0.00-0.74 Baso Abs (test code=ABASO) 0.0 K/cumm 0.00-0.21 CBC with [id number] 10:15:00 Test Item Value Reference Range Comments [...] Lymph Abs (test code=ALYMPH) 2.4 K/cumm 0.5-4.6 [place] Abs (test code=AMONO) 0.6 K/cumm 0.0-1.2 Eos Abs (test code=AEOS) 0.09 K/cumm 0.00-0.74 Baso Abs (test code=ABASO) 0.1 K/cumm 0.00-0.21 RPR, [id number] 10:10:00 Test Item Value Reference Range Comments RPR (test code=RPR) Non-Reactive Non-Reactive Thyroid Stimulating Hormone (TSH)2016-09-05 09:52:00 Test Item Value Reference Range Comments TSH (test code=TSH) 2.86 mIU/mL 0.270-4.200 Lipid [id number] 09:44:00 Test Item Value Reference Range Comments Cholesterol (test 106 mg/dL 0-200 code=CHOL) Triglycerides (test 167 mg/dL 9-200 code=TRIG) HDL (test code=HDL) 25 mg/dL 40-60 Chol/HDL (test 4.2 Ratio 0.0-5.0 code=CHOLPHDL) LDL, Calculated (test 48 0-130 (NOTE)RISK OF HEART code=LDLC) DISEASEPublished by [place] Heart AssociationAnalyte Optimal Boderline Increased RiskCHOL <200 200-239 >240TRIG <150 150-199 >200HDL Male: >60 <40HDL Female: >60 <50LDL <100 130-159 >160LDL NEAR OPTIMAL IS 100-129 VLDL (test code=VLDL) 33 mg/dL 5-40 LDL/HDL (test code=LDLPHDL) 2 Valproic Acid (Depakote),[id number] 09:44:00 Test Item Value Reference Range Comments Valproic Acid (test code=VALP) 62.7 ug/mL 50.0-100.0 Comprehensive Metabolic [id number] 09:44:00 Test Item Value Reference Range Comments [...] race is not provided, and the patient isAfrican-Egyptian, multiply by 1.212. If sex is not [...] the National Kidney Foundation,http://nkdep.nih .gov Comprehensive Metabolic [id number] 03:26:00 Test Item Value Reference Range Comments [...] race is not provided, and the patient isAfrican-Egyptian, multiply by 1.212. If sex is not provided, and thepatient is female, multiply by 0.742. Results for patients <18 years ofage have not been validated by the MDRD study and should be interpretedwith caution.eGFR Result Interpretation:eGFR > or=60 is in the Normal RangeeGFR < 60 may mean kidney diseaseeGFR < 15 may mean kidney failureRanges recommended by the National Kidney Foundation,http://nkdep.nih .gov [id number] 03:06:00 Test Item Value Reference Range Comments [...] Urine (test <0.01 g/dL 0.00-0.01 code=ETOHU) Troponin [id number] 03:06:00 Test Item Value Reference Range Comments Troponin T (test code=SHAMIKA) <0.010 ng/mL 0.000-0.090 Urinalysis [id number] 02:57:00 Test Item Value Reference Range Comments Color (test code=COLOR) Yellow Yellow,Straw,Pl yellow Clarity (test code=CLAR) Clear Clear Specific [place] (test 1.028 1.001-1.035 code=SPGR) pH (test code=PH) [...] code=DERRICK) Few Calcium Oxalate /HPF CBC with [id number] 02:43:00 Test Item Value Reference Range Comments [...] Lymph Abs (test code=ALYMPH) 2.5 K/cumm 0.5-4.6 [place] Abs (test code=AMONO) 0.6 K/cumm 0.0-1.2 Eos Abs (test code=AEOS) 0.13 K/cumm 0.00-0.74 Baso Abs (test code=ABASO) 0.0 K/cumm 0.00-0.21 Valproic Acid (Depakote),[id number] 07:46:00 Test Item Value Reference Range Comments Valproic Acid (test code=VALP) 63.2 ug/mL 50.0-100.0 POC Glucose, [id number] 19:39:00 Test Item Value Reference Range Comments POC Glucose (test 204 mg/dL 70-115 If you consider your patient code=POCGLUC) critically ill, the [facility]el Accu-Chek InformII metershould not be used for Glucose determinations.Draw a venous Glucose and send to the Main Lab for Analysis. Comprehensive Metabolic [id number] 05:27:00 Test Item Value Reference Range Comments [...] race is not provided, and the patient isAfrican-Egyptian, multiply by 1.212. If sex is not provided, and thepatient is female, multiply by 0.742. Results for patients <18 years ofage have not been validated by the MDRD study and should be interpretedwith caution.eGFR Result Interpretation:eGFR > or=60 is in the Normal RangeeGFR < 60 may mean kidney diseaseeGFR < 15 may mean kidney failureRanges recommended by the National Kidney Foundation,http://nkdep.nih .gov [id number] 05:27:00 Test Item Value Reference Range Comments [...] (test <0.01 g/dL 0.00-0.01 code=ETOHU) CBC with [id number] 05:08:00 Test Item Value Reference Range Comments [...] Lymph Abs (test code=ALYMPH) 2.8 K/cumm 0.5-4.6 [place] Abs (test code=AMONO) 0.6 K/cumm 0.0-1.2 Eos Abs (test code=AEOS) 0.12 K/cumm 0.00-0.74 Baso Abs (test code=ABASO) 0.1 K/cumm 0.00-0.21 Urinalysis [id number] 05:07:00 Test Item Value Reference Range Comments Color (test code=COLOR) Straw Yellow,Straw,Pl yellow Clarity (test code=CLAR) Clear Clear Specific [place] (test code=SPGR) 1.005 1.001-1.035 pH (test code=PH) [...]
--- NOTE | 2018-12-19 20:35 | ER ---
Nurse's Notes [facility] Name: Bereket Gardner Age: 43 yrs Sex: Male : 1975 Arrival Date: 12/19/2018 Time: 19:38 Bed 5 Private MD: Diagnosis: Blister (nonthermal) of foot;Bipolar disorder Presentation: 12/19 19:39 Presenting complaint: EMS states: walked to [place] today and sustained blisters to tl2 CHAYO heels. No bleeding noted. Pt is AOx4. Transition of care: patient was not received from another setting of care. Onset of symptoms was December 19, 2018. Risk Assessment: Do you want to hurt yourself or someone else? Patient reports no desire to harm self or others. Initial Sepsis Screen: Does the patient meet any 2 criteria? No. Patient's initial sepsis screen is negative. Does the patient have a suspected source of infection? No. Patient's initial sepsis screen is negative. Care prior to arrival: None. 19:39 Method Of Arrival: EMS: [facility] tl2 19:39 Acuity: ARIA 4 tl2 Triage Assessment: 19:41 General: Appears in no apparent distress. Behavior is calm, cooperative, appropriate tl2 for age. Pain: Complains of pain in right foot and left foot. Neuro: Level of Consciousness is awake, alert, obeys commands, Oriented to person, place, time, situation. Cardiovascular: Denies chest pain. Respiratory: Airway is patent Respiratory effort is even, unlabored, Respiratory pattern is regular, symmetrical. GI: No deficits noted. : No deficits noted. Derm: Skin is pink, warm \T\ dry. small blisters noted to bottom of heels, no drainage. Historical: - Allergies: 19:41 Aspirin; tl2 19:41 Ibuprofen; tl2 - Home Meds: 19:41 Cogentin Oral [Active]; Depakote 500 mg Oral TbEC 1 tab 1 am and 2 at night [Active]; tl2 fenofibrate 145 MG Oral once daily [Active]; hydroxyzine HCl 50 mg Oral tab 2 tabs three times a day [Active]; Invega Oral [Active]; Risperdal Oral [Active]; trazodone 50 mg Oral tab 1 tab nightly [Active]; - PMHx: 19:41 Anemia; Anxiety; Bipolar disorder; enlarged heart and liver; High Cholesterol; tl2 Hypertension; Schizophrenia; - Immunization history:: Adult Immunizations up to date. - Social history:: Smoking status: Patient uses tobacco products, smokes one pack cigarettes per day. - Ebola Screening: : No symptoms or risks identified at this time. - Family history:: not pertinent. Screenin:44 Abuse screen: Denies threats or abuse. Nutritional screening: No deficits noted. tl2 Tuberculosis screening: No symptoms or risk factors identified. Fall Risk None identified. Assessment: 20:17 General: Appears in no apparent distress. comfortable, Behavior is calm, cooperative. rv Pain: Complains of pain in left foot and right foot. Neuro: Level of Consciousness is confused, Oriented to person, place. Cardiovascular: Patient's skin is warm and dry. Respiratory: Airway is patent. GI: No signs and/or symptoms were reported involving the gastrointestinal system. : No signs and/or symptoms were reported regarding the genitourinary system. EENT: No signs and/or symptoms were reported regarding the EENT system. Derm: Wound noted right foot Wound is abrasion. Musculoskeletal: Swelling absent Reports pain in left foot and right foot. 21:00 Reassessment: Patient appears in no apparent distress at this time. Patient and/or tl2 family updated on plan of care and expected duration. Pain level reassessed. Patient is alert, oriented x 3, equal unlabored respirations, skin warm/dry/pink. pt verbalized understanding of discharge instructions, need for follow up and crutch walking. Vital Signs: 19:41 BP 120 / 72; Pulse 82; Resp 18; Temp 99.7(O); Pulse Ox 98% on R/A; Weight 73.03 kg; tl2 Height 5 ft. 5 in. (165.10 cm); Pain 3/10; 21:02 BP 121 / 78; Pulse 87; Resp 18; Pulse Ox 99% on R/A; tl2 19:41 Body Mass Index 26.79 (73.03 kg, 165.10 cm) tl2 ED Course: 19:38 Patient arrived in ED. tl2 19:39 Stuart Dumont MD is Attending Physician. [facility] 19:40 Triage completed. tl2 19:41 Arm band placed on right wrist. tl2 19:44 Patient has correct armband on for positive identification. Bed in low position. Call tl2 light in reach. Side rails up X 1. 20:03 Stevie Troy, RN is Primary Nurse. rv 20:18 No provider procedures requiring assistance completed. Wound care: to abrasion, located rv on right foot was cleaned with Hibiclens, irrigated with normal saline, dressed with 4X4s, Patient tolerated well. 21:00 Patient did not have IV access during this emergency room visit. tl2 Administered Medications: No medications were administered Outcome: 20: Discharge ordered by . florentin 21:00 Discharged to home ambulatory. tl2 21:00 Condition: stable 21:00 Discharge instructions given to patient, Instructed on discharge instructions, follow up and referral plans. crutch walking, Demonstrated understanding of instructions, follow-up care, crutch walking. 21:02 Patient left the ED. tl2 Signatures: Stuart Dumont MD MD cha Knox, Taylor RN RN tl2 Stevie Troy, GEMINI RN rv
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
[2018-12-19 21:10] VITALS: TEMP 99.7
[2018-12-19 21:11] VITALS: BP 121/78; O2SAT 99
== END 2018-12-19 21:02 | disposition home or self-care (01) ==
LOC: ER 19:35
DX: S90.821A Blister (nonthermal), right foot, initial encounter (principal); F31.9 Bipolar disorder, unspecified; I10 Essential (primary) hypertension; F41.9 Anxiety disorder, unspecified; E78.00 Pure hypercholesterolemia, unspecified; Z88.6 Allergy status to analgesic agent
CPT/HCPCS: 99284

== ENCOUNTER 2018-12-23 23:23 | Emergency (ER) | payer OTHER ==
--- OUTSIDE RECORDS SUMMARY | 2018-12-23 23:26 | XMS REPORT ---
:1975 [facility] Address [address] [place] [address] Care Team Providers Name Role Phone MADELEINE [...] Acid (test code=VALP) 77.4 ug/mL 50.0-100.0 RPR, [id number] 12:49:00 Test Item Value Reference Range Comments RPR (test code=RPR) Non-Reactive Non-Reactive Thyroid Stimulating Hormone (TSH)2016-10-01 07:49:00 Test Item Value Reference Range Comments TSH (test code=TSH) 6.31 mIU/mL 0.270-4.200 Lipid [id number] 07:41:00 Test Item Value Reference Range Comments Cholesterol (test 162 mg/dL 0-200 code=CHOL) Triglycerides (test 231 mg/dL 9-200 code=TRIG) HDL (test code=HDL) 36 mg/dL 40-60 Chol/HDL (test 4.5 Ratio 0.0-5.0 code=CHOLPHDL) LDL, Calculated (test 80 0-130 (NOTE)RISK OF HEART code=LDLC) DISEASEPublished by [place] Heart AssociationAnalyte Optimal Boderline Increased RiskCHOL <200 200-239 >240TRIG <150 150-199 >200HDL Male: >60 <40HDL Female: >60 <50LDL <100 130-159 >160LDL NEAR OPTIMAL IS 100-129 VLDL (test code=VLDL) 46 mg/dL 5-40 LDL/HDL (test code=LDLPHDL) 2 [id number] 05:39:00 Test Item Value Reference Range Comments [...] Urine (test <0.01 g/dL 0.00-0.01 code=ETOHU) Alcohol/Ethanol, [id number] 05:31:00 Test Item Value Reference Range Comments Alcohol, Ethyl (test <0.01 g/dL 0.00-0.01 Intoxicated 0.080 g/dL or code=ETOH) more Comprehensive Metabolic [id number] 05:31:00 Test Item Value Reference Range Comments [...] race is not provided, and the patient isAfrican-Malawian, multiply by 1.212. If sex is not provided, and thepatient is female, multiply by 0.742. Results for patients <18 years ofage have not been validated by the MDRD study and should be interpretedwith caution.eGFR Result Interpretation:eGFR > or=60 is in the Normal RangeeGFR < 60 may mean kidney diseaseeGFR < 15 may mean kidney failureRanges recommended by the National Kidney Foundation,http://nkdep.nih .gov Urinalysis [id number] 05:30:00 Test Item Value Reference Range Comments Color (test code=COLOR) Yellow Yellow,Straw,Pl yellow Clarity (test code=CLAR) Clear Clear Specific [place] (test code=SPGR) 1.006 1.001-1.035 pH (test code=PH) [...] Exam (test code=MEXAM) Not indicated CBC with [id number] 05:19:00 Test Item Value Reference Range Comments [...] Lymph Abs (test code=ALYMPH) 1.7 K/cumm 0.5-4.6 [place] Abs (test code=AMONO) 0.8 K/cumm 0.0-1.2 Eos Abs (test code=AEOS) 0.09 K/cumm 0.00-0.74 Baso Abs (test code=ABASO) 0.0 K/cumm 0.00-0.21 CBC with [id number] 10:15:00 Test Item Value Reference Range Comments [...] Lymph Abs (test code=ALYMPH) 2.4 K/cumm 0.5-4.6 [place] Abs (test code=AMONO) 0.6 K/cumm 0.0-1.2 Eos Abs (test code=AEOS) 0.09 K/cumm 0.00-0.74 Baso Abs (test code=ABASO) 0.1 K/cumm 0.00-0.21 RPR, [id number] 10:10:00 Test Item Value Reference Range Comments RPR (test code=RPR) Non-Reactive Non-Reactive Thyroid Stimulating Hormone (TSH)2016-09-05 09:52:00 Test Item Value Reference Range Comments TSH (test code=TSH) 2.86 mIU/mL 0.270-4.200 Lipid [id number] 09:44:00 Test Item Value Reference Range Comments Cholesterol (test 106 mg/dL 0-200 code=CHOL) Triglycerides (test 167 mg/dL 9-200 code=TRIG) HDL (test code=HDL) 25 mg/dL 40-60 Chol/HDL (test 4.2 Ratio 0.0-5.0 code=CHOLPHDL) LDL, Calculated (test 48 0-130 (NOTE)RISK OF HEART code=LDLC) DISEASEPublished by [place] Heart AssociationAnalyte Optimal Boderline Increased RiskCHOL <200 200-239 >240TRIG <150 150-199 >200HDL Male: >60 <40HDL Female: >60 <50LDL <100 130-159 >160LDL NEAR OPTIMAL IS 100-129 VLDL (test code=VLDL) 33 mg/dL 5-40 LDL/HDL (test code=LDLPHDL) 2 Valproic Acid (Depakote),[id number] 09:44:00 Test Item Value Reference Range Comments Valproic Acid (test code=VALP) 62.7 ug/mL 50.0-100.0 Comprehensive Metabolic [id number] 09:44:00 Test Item Value Reference Range Comments [...] race is not provided, and the patient isAfrican-Malawian, multiply by 1.212. If sex is not [...] the National Kidney Foundation,http://nkdep.nih .gov Comprehensive Metabolic [id number] 03:26:00 Test Item Value Reference Range Comments [...] race is not provided, and the patient isAfrican-Malawian, multiply by 1.212. If sex is not provided, and thepatient is female, multiply by 0.742. Results for patients <18 years ofage have not been validated by the MDRD study and should be interpretedwith caution.eGFR Result Interpretation:eGFR > or=60 is in the Normal RangeeGFR < 60 may mean kidney diseaseeGFR < 15 may mean kidney failureRanges recommended by the National Kidney Foundation,http://nkdep.nih .gov [id number] 03:06:00 Test Item Value Reference Range Comments [...] Urine (test <0.01 g/dL 0.00-0.01 code=ETOHU) Troponin [id number] 03:06:00 Test Item Value Reference Range Comments Troponin T (test code=SHAMIKA) <0.010 ng/mL 0.000-0.090 Urinalysis [id number] 02:57:00 Test Item Value Reference Range Comments Color (test code=COLOR) Yellow Yellow,Straw,Pl yellow Clarity (test code=CLAR) Clear Clear Specific [place] (test 1.028 1.001-1.035 code=SPGR) pH (test code=PH) [...] code=DERRICK) Few Calcium Oxalate /HPF CBC with [id number] 02:43:00 Test Item Value Reference Range Comments [...] Lymph Abs (test code=ALYMPH) 2.5 K/cumm 0.5-4.6 [place] Abs (test code=AMONO) 0.6 K/cumm 0.0-1.2 Eos Abs (test code=AEOS) 0.13 K/cumm 0.00-0.74 Baso Abs (test code=ABASO) 0.0 K/cumm 0.00-0.21 Valproic Acid (Depakote),[id number] 07:46:00 Test Item Value Reference Range Comments Valproic Acid (test code=VALP) 63.2 ug/mL 50.0-100.0 POC Glucose, [id number] 19:39:00 Test Item Value Reference Range Comments POC Glucose (test 204 mg/dL 70-115 If you consider your patient code=POCGLUC) critically ill, the Ismael Accu-Chek InformII metershould not be used for Glucose determinations.Draw a venous Glucose and send to the Main Lab for Analysis. Comprehensive Metabolic [id number] 05:27:00 Test Item Value Reference Range Comments [...] race is not provided, and the patient isAfrican-Malawian, multiply by 1.212. If sex is not provided, and thepatient is female, multiply by 0.742. Results for patients <18 years ofage have not been validated by the MDRD study and should be interpretedwith caution.eGFR Result Interpretation:eGFR > or=60 is in the Normal RangeeGFR < 60 may mean kidney diseaseeGFR < 15 may mean kidney failureRanges recommended by the National Kidney Foundation,http://nkdep.nih .gov [id number] 05:27:00 Test Item Value Reference Range Comments [...] (test <0.01 g/dL 0.00-0.01 code=ETOHU) CBC with [id number] 05:08:00 Test Item Value Reference Range Comments [...] Lymph Abs (test code=ALYMPH) 2.8 K/cumm 0.5-4.6 [place] Abs (test code=AMONO) 0.6 K/cumm 0.0-1.2 Eos Abs (test code=AEOS) 0.12 K/cumm 0.00-0.74 Baso Abs (test code=ABASO) 0.1 K/cumm 0.00-0.21 Urinalysis [id number] 05:07:00 Test Item Value Reference Range Comments Color (test code=COLOR) Straw Yellow,Straw,Pl yellow Clarity (test code=CLAR) Clear Clear Specific [place] (test code=SPGR) 1.005 1.001-1.035 pH (test code=PH) [...]
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
--- NOTE | 2018-12-24 08:04 | RAD REPORT ---
EXAM DESCRIPTION: RAD - Ankle Right 3 View - 12/24/2018 12:23 am CLINICAL HISTORY: Right ankle pain FINDINGS: No fracture or dislocation is seen.
--- NOTE | 2018-12-24 08:34 | RAD REPORT ---
EXAM DESCRIPTION: Elle Single View12/24/2018 12:23 am CLINICAL HISTORY: Chest pain COMPARISON: July 2017 FINDINGS: The lungs appear clear of acute infiltrate. The heart is normal size IMPRESSION: No acute abnormalities displayed
== END 2018-12-24 01:12 | disposition home or self-care (01) ==
LOC: ER 23:23
DX: R07.89 Other chest pain (principal); M25.571 Pain in right ankle and joints of right foot; I10 Essential (primary) hypertension; Y04.2XXA Assault by strike against or bumped into by another person, initial encounter; Y93.9 Activity, unspecified; Y92.89 Other specified places as the place of occurrence of the external cause; Z88.6 Allergy status to analgesic agent
CPT/HCPCS: 71045; 99283

== ENCOUNTER 2018-12-24 21:56 | Emergency (ER) | payer OTHER ==
--- OUTSIDE RECORDS SUMMARY | 2018-12-24 21:59 | XMS REPORT ---
:1975 [facility] Address [address] [place] [address] [address]. [address] [place] [address] Care Team Providers Name Role Phone MADELEINE [...] Acid (test code=VALP) 77.4 ug/mL 50.0-100.0 RPR, [id number] 12:49:00 Test Item Value Reference Range Comments RPR (test code=RPR) Non-Reactive Non-Reactive Thyroid Stimulating Hormone (TSH)2016-10-01 07:49:00 Test Item Value Reference Range Comments TSH (test code=TSH) 6.31 mIU/mL 0.270-4.200 Lipid [id number] 07:41:00 Test Item Value Reference Range Comments Cholesterol (test 162 mg/dL 0-200 code=CHOL) Triglycerides (test 231 mg/dL 9-200 code=TRIG) HDL (test code=HDL) 36 mg/dL 40-60 Chol/HDL (test 4.5 Ratio 0.0-5.0 code=CHOLPHDL) LDL, Calculated (test 80 0-130 (NOTE)RISK OF HEART code=LDLC) DISEASEPublished by Hungarian Heart AssociationAnalyte Optimal Boderline Increased RiskCHOL <200 200-239 >240TRIG <150 150-199 >200HDL Male: >60 <40HDL Female: >60 <50LDL <100 130-159 >160LDL NEAR OPTIMAL IS 100-129 VLDL (test code=VLDL) 46 mg/dL 5-40 LDL/HDL (test code=LDLPHDL) 2 [id number] 05:39:00 Test Item Value Reference Range Comments [...] Urine (test <0.01 g/dL 0.00-0.01 code=ETOHU) Alcohol/Ethanol, [id number] 05:31:00 Test Item Value Reference Range Comments Alcohol, Ethyl (test <0.01 g/dL 0.00-0.01 Intoxicated 0.080 g/dL or code=ETOH) more Comprehensive Metabolic [id number] 05:31:00 Test Item Value Reference Range Comments [...] race is not provided, and the patient isAfrican-Hungarian, multiply by 1.212. If sex is not provided, and thepatient is female, multiply by 0.742. Results for patients <18 years ofage have not been validated by the MDRD study and should be interpretedwith caution.eGFR Result Interpretation:eGFR > or=60 is in the Normal RangeeGFR < 60 may mean kidney diseaseeGFR < 15 may mean kidney failureRanges recommended by the National Kidney Foundation,http://nkdep.nih .gov Urinalysis [id number] 05:30:00 Test Item Value Reference Range Comments Color (test code=COLOR) Yellow Yellow,Straw,Pl yellow Clarity (test code=CLAR) Clear Clear Specific [place] (test code=SPGR) 1.006 1.001-1.035 pH (test code=PH) [...] Exam (test code=MEXAM) Not indicated CBC with [id number] 05:19:00 Test Item Value Reference Range Comments [...] Lymph Abs (test code=ALYMPH) 1.7 K/cumm 0.5-4.6 [place] Abs (test code=AMONO) 0.8 K/cumm 0.0-1.2 Eos Abs (test code=AEOS) 0.09 K/cumm 0.00-0.74 Baso Abs (test code=ABASO) 0.0 K/cumm 0.00-0.21 CBC with [id number] 10:15:00 Test Item Value Reference Range Comments [...] Lymph Abs (test code=ALYMPH) 2.4 K/cumm 0.5-4.6 [place] Abs (test code=AMONO) 0.6 K/cumm 0.0-1.2 Eos Abs (test code=AEOS) 0.09 K/cumm 0.00-0.74 Baso Abs (test code=ABASO) 0.1 K/cumm 0.00-0.21 RPR, [id number] 10:10:00 Test Item Value Reference Range Comments RPR (test code=RPR) Non-Reactive Non-Reactive Thyroid Stimulating Hormone (TSH)2016-09-05 09:52:00 Test Item Value Reference Range Comments TSH (test code=TSH) 2.86 mIU/mL 0.270-4.200 Lipid [id number] 09:44:00 Test Item Value Reference Range Comments Cholesterol (test 106 mg/dL 0-200 code=CHOL) Triglycerides (test 167 mg/dL 9-200 code=TRIG) HDL (test code=HDL) 25 mg/dL 40-60 Chol/HDL (test 4.2 Ratio 0.0-5.0 code=CHOLPHDL) LDL, Calculated (test 48 0-130 (NOTE)RISK OF HEART code=LDLC) DISEASEPublished by Hungarian Heart AssociationAnalyte Optimal Boderline Increased RiskCHOL <200 200-239 >240TRIG <150 150-199 >200HDL Male: >60 <40HDL Female: >60 <50LDL <100 130-159 >160LDL NEAR OPTIMAL IS 100-129 VLDL (test code=VLDL) 33 mg/dL 5-40 LDL/HDL (test code=LDLPHDL) 2 Valproic Acid (Depakote),[id number] 09:44:00 Test Item Value Reference Range Comments Valproic Acid (test code=VALP) 62.7 ug/mL 50.0-100.0 Comprehensive Metabolic [id number] 09:44:00 Test Item Value Reference Range Comments [...] race is not provided, and the patient isAfrican-Hungarian, multiply by 1.212. If sex is not [...] the National Kidney Foundation,http://nkdep.nih .gov Comprehensive Metabolic [id number] 03:26:00 Test Item Value Reference Range Comments [...] race is not provided, and the patient isAfrican-Hungarian, multiply by 1.212. If sex is not provided, and thepatient is female, multiply by 0.742. Results for patients <18 years ofage have not been validated by the MDRD study and should be interpretedwith caution.eGFR Result Interpretation:eGFR > or=60 is in the Normal RangeeGFR < 60 may mean kidney diseaseeGFR < 15 may mean kidney failureRanges recommended by the National Kidney Foundation,http://nkdep.nih .gov [id number] 03:06:00 Test Item Value Reference Range Comments [...] Urine (test <0.01 g/dL 0.00-0.01 code=ETOHU) Troponin [id number] 03:06:00 Test Item Value Reference Range Comments Troponin T (test code=SHAMIKA) <0.010 ng/mL 0.000-0.090 Urinalysis [id number] 02:57:00 Test Item Value Reference Range Comments Color (test code=COLOR) Yellow Yellow,Straw,Pl yellow Clarity (test code=CLAR) Clear Clear Specific [place] (test 1.028 1.001-1.035 code=SPGR) pH (test code=PH) [...] code=DERRICK) Few Calcium Oxalate /HPF CBC with [id number] 02:43:00 Test Item Value Reference Range Comments [...] Lymph Abs (test code=ALYMPH) 2.5 K/cumm 0.5-4.6 [place] Abs (test code=AMONO) 0.6 K/cumm 0.0-1.2 Eos Abs (test code=AEOS) 0.13 K/cumm 0.00-0.74 Baso Abs (test code=ABASO) 0.0 K/cumm 0.00-0.21 Valproic Acid (Depakote),[id number] 07:46:00 Test Item Value Reference Range Comments Valproic Acid (test code=VALP) 63.2 ug/mL 50.0-100.0 POC Glucose, [id number] 19:39:00 Test Item Value Reference Range Comments POC Glucose (test 204 mg/dL 70-115 If you consider your patient code=POCGLUC) critically ill, the Ismael Accu-Chek InformII metershould not be used for Glucose determinations.Draw a venous Glucose and send to the Main Lab for Analysis. Comprehensive Metabolic [id number] 05:27:00 Test Item Value Reference Range Comments [...] race is not provided, and the patient isAfrican-Hungarian, multiply by 1.212. If sex is not provided, and thepatient is female, multiply by 0.742. Results for patients <18 years ofage have not been validated by the MDRD study and should be interpretedwith caution.eGFR Result Interpretation:eGFR > or=60 is in the Normal RangeeGFR < 60 may mean kidney diseaseeGFR < 15 may mean kidney failureRanges recommended by the National Kidney Foundation,http://nkdep.nih .gov [id number] 05:27:00 Test Item Value Reference Range Comments [...] (test <0.01 g/dL 0.00-0.01 code=ETOHU) CBC with [id number] 05:08:00 Test Item Value Reference Range Comments [...] Lymph Abs (test code=ALYMPH) 2.8 K/cumm 0.5-4.6 [place] Abs (test code=AMONO) 0.6 K/cumm 0.0-1.2 Eos Abs (test code=AEOS) 0.12 K/cumm 0.00-0.74 Baso Abs (test code=ABASO) 0.1 K/cumm 0.00-0.21 Urinalysis [id number] 05:07:00 Test Item Value Reference Range Comments Color (test code=COLOR) Straw Yellow,Straw,Pl yellow Clarity (test code=CLAR) Clear Clear Specific [place] (test code=SPGR) 1.005 1.001-1.035 pH (test code=PH) [...]
--- NOTE | 2018-12-24 22:40 | ER ---
Nurse's Notes [facility] Name: Bereket Gardner Age: 43 yrs Sex: Male : 1975 Arrival Date: 12/24/2018 Time: 21:57 Bed 18 Private MD: Diagnosis: Intercostal pain Presentation: 12/24 22:00 Presenting complaint: [facility] said he rr5 fell down hit his left rib area no LOC no N/V. 22:00 Transition of care: patient was not received from another setting of care. Onset of rr5 symptoms was December 24, 2018 at 21:50. Risk Assessment: Do you want to hurt yourself or someone else? Patient reports no desire to harm self or others. Initial Sepsis Screen: Does the patient meet any 2 criteria? No. Patient's initial sepsis screen is negative. Does the patient have a suspected source of infection? No. Patient's initial sepsis screen is negative. Care prior to arrival: None. 22:00 Method Of Arrival: EMS: [facility] rr5 22:00 Acuity: ARIA 3 rr5 Historical: - Allergies: 22:00 Aspirin; rr5 22:00 Ibuprofen; rr5 - PMHx: 22:00 Anemia; Anxiety; Bipolar disorder; enlarged heart and liver; High Cholesterol; rr5 Hypertension; Schizophrenia; - PSHx: 22:00 Cholecystectomy; rr5 - Immunization history:: Adult Immunizations unknown. - Social history:: Smoking status: Patient uses tobacco products, 3 sticks per day. - Ebola Screening: : Patient negative for fever greater than or equal to 101.5 degrees Fahrenheit, and additional compatible Ebola Virus Disease symptoms Patient denies exposure to infectious person Patient denies travel to an Ebola-affected area in the 21 days before illness onset. Screenin:10 Abuse screen: Denies threats or abuse. Denies injuries from another. Nutritional rr5 screening: No deficits noted. Tuberculosis screening: No symptoms or risk factors identified. Fall Risk Fall in past 12 months (25 points). IV access (20 points). Total Calvin Fall Scale indicates High Risk Score (45 or more points). Fall prevention measures have been instituted. Side Rails Up X 2 Placed Close to Nursing Station Frequent Obs/Assessments Occuring Family Present and informed to notify staff if the need to leave the bedside As available patient and family educated on Fall Prevention Program and Strategies. Assessment: 22:00 General: Appears in no apparent distress. uncomfortable, Behavior is calm, cooperative, rr5 appropriate for age. 22:00 Pain: Complains of pain in left ribcage Pain does not radiate. Pain currently is 9 out rr5 of 10 on a pain scale. Quality of pain is described as aching, Pain began suddenly, Is intermittent. Neuro: Level of Consciousness is awake, alert, obeys commands, Oriented to person, place, time, situation, Appropriate for age. Cardiovascular: Capillary refill < 3 seconds Patient's skin is warm and dry. Respiratory: Airway is patent Respiratory effort is even, unlabored, Respiratory pattern is regular, symmetrical. GI: No signs and/or symptoms were reported involving the gastrointestinal system. : EENT: No signs and/or symptoms were reported regarding the EENT system. Derm: Skin is pink, warm \T\ dry. Skin temperature is warm. Musculoskeletal: Circulation, motion, and sensation intact. Capillary refill < 3 seconds, Reports pain in left rib cage. 22:59 Reassessment: Patient appears in no apparent distress at this time. Patient and/or rr5 family updated on plan of care and expected duration. Pain level reassessed. Patient is alert, oriented x 3, equal unlabored respirations, skin warm/dry/pink. xray done awaiting for result. 23:20 Reassessment: Patient appears in no apparent distress at this time. Patient is alert, rr5 oriented x 3, equal unlabored respirations, skin warm/dry/pink. discharge instruction given and explained to patient without complaints made. 23:20 Reassessment: taxi coordinated going home. rr5 Vital Signs: 21:59 BP 123 / 77; Pulse 83; Resp 16; Temp 98.6; Pulse Ox 97% on R/A; Pain 9/10; oe 23:00 BP 121 / 70; Pulse 70; Resp 16; Pulse Ox 99% on R/A; rr5 ED Course: 21:57 Patient arrived in ED. ds1 22:00 Garcia Menjivar RN is Primary Nurse. rr5 22:00 Arm band placed on. rr5 22:03 Triage completed. rr5 22:10 Junior Coppola MD is Attending Physician. ps1 23:00 X-ray completed. Portable x-ray completed in exam room. Patient tolerated procedure az well. 23:00 CXR XRAY In Process Unspecified. EDMS 23:20 Patient has correct armband on for positive identification. Placed in gown. Bed in low rr5 position. 23:24 No provider procedures requiring assistance completed. Patient did not have IV access rr5 during this emergency room visit. Administered Medications: No medications were administered Outcome: 22:39 Discharge ordered by . ps1 23:24 Discharged to home ambulatory. rr5 23:24 Condition: stable 23:24 Discharge instructions given to patient, Instructed on discharge instructions, follow up and referral plans. Demonstrated understanding of instructions, follow-up care. 23:25 Patient left the ED. rr5 Signatures: Dispatcher [employer] EDWY LamarAnitha manzano dsChip Velez Phillip, MD MD ps1 Mary Palmer Raymond, RN RN rr5
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
[2018-12-25 00:16] VITALS: BP 121/70; TEMP 98.6; O2SAT 99
--- NOTE | 2018-12-25 09:02 | RAD REPORT ---
EXAM DESCRIPTION: RAD - Chest Single View - 12/24/2018 11:01 pm CLINICAL HISTORY: Fall, left-sided chest pain, left-sided rib pain COMPARISON: December 23 TECHNIQUE: AP portable chest image was obtained 2254 hours . FINDINGS: Lung volumes are low. No pulmonary contusion or pneumothorax identified. Heart size is nor mal range. Mediastinum is distorted by slight rotation. No pleural fluid collection peer no rib defor mity seen. Portable imaging provides only limited assessment of the ribcage. No acute aortic findings suspected. IMPRESSION: No acute cardiopulmonary finding seen. Ribcage assessment is limited on portable imaging. Dedicated rib films or CT imaging could be perform ed if there is ongoing concern for rib injury.
== END 2018-12-24 23:25 | disposition home or self-care (01) ==
LOC: ER 21:56
DX: R07.82 Intercostal pain (principal); I10 Essential (primary) hypertension; F20.9 Schizophrenia, unspecified; W11.XXXA Fall on and from ladder, initial encounter; Y93.9 Activity, unspecified; Y92.9 Unspecified place or not applicable; Z72.0 Tobacco use; Z88.6 Allergy status to analgesic agent
CPT/HCPCS: 71045; 99283

== ENCOUNTER 2018-12-25 17:10 | Emergency (ER) | payer OTHER ==
--- OUTSIDE RECORDS SUMMARY | 2018-12-25 17:14 | XMS REPORT ---
:1975 [facility] [address] [place] [address] Care Team Providers Name Role Phone MADELEINE RANKIN Primary Care Provider Unavailable PANCHO CRAFWORD Unavailable Unavailable Problems This patient has no known problems. Allergies, Adverse Reactions, Alerts This patient has no known allergies or adverse reactions. Medications This patient has no known medications. Results Test Description Test Time Test Comments Text Results Atomic Results Result Comments Valproic Acid (Depakote),S 2016-10-02 05:51:00 Test Item Value Reference Range Comments Valproic Acid (test code=VALP) 77.4 ug/mL 50.0-100.0 RPR, [id number] 12:49:00 Test Item Value Reference Range Comments RPR (test code=RPR) Non-Reactive Non-Reactive Thyroid Stimulating Hormone (TSH)2016-10-01 07:49:00 Test Item Value Reference Range Comments TSH (test code=TSH) 6.31 mIU/mL 0.270-4.200 Lipid [id number] 07:41:00 Test Item Value Reference Range Comments Cholesterol (test 162 mg/dL 0-200 code=CHOL) Triglycerides (test 231 mg/dL 9-200 code=TRIG) HDL (test code=HDL) 36 mg/dL 40-60 Chol/HDL (test 4.5 Ratio 0.0-5.0 code=CHOLPHDL) LDL, Calculated (test 80 0-130 (NOTE)RISK OF HEART code=LDLC) DISEASEPublished by Citizen [place] Heart AssociationAnalyte Optimal Boderline Increased RiskCHOL <200 200-239 >240TRIG <150 150-199 >200HDL Male: >60 <40HDL Female: >60 <50LDL <100 130-159 >160LDL NEAR OPTIMAL IS 100-129 VLDL (test code=VLDL) 46 mg/dL 5-40 LDL/HDL (test code=LDLPHDL) 2 [id number] 05:39:00 Test Item Value Reference Range Comments [...] Urine (test <0.01 g/dL 0.00-0.01 code=ETOHU) Alcohol/Ethanol, [id number] 05:31:00 Test Item Value Reference Range Comments Alcohol, Ethyl (test <0.01 g/dL 0.00-0.01 Intoxicated 0.080 g/dL or code=ETOH) more Comprehensive Metabolic [id number] 05:31:00 Test Item Value Reference Range Comments [...] race is not provided, and the patient isAfrican-Citizen Of [place], multiply by 1.212. If sex is not provided, and thepatient is female, multiply by 0.742. Results for patients <18 years ofage have not been validated by the MDRD study and should be interpretedwith caution.eGFR Result Interpretation:eGFR > or=60 is in the Normal RangeeGFR < 60 may mean kidney diseaseeGFR < 15 may mean kidney failureRanges recommended by the National Kidney Foundation,http://nkdep.nih .gov Urinalysis [id number] 05:30:00 Test Item Value Reference Range Comments Color (test code=COLOR) Yellow Yellow,Straw,Pl yellow Clarity (test code=CLAR) Clear Clear Specific [place] (test code=SPGR) 1.006 1.001-1.035 pH (test code=PH) [...] Exam (test code=MEXAM) Not indicated CBC with [id number] 05:19:00 Test Item Value Reference Range Comments [...] Lymph Abs (test code=ALYMPH) 1.7 K/cumm 0.5-4.6 Scurry Abs (test code=AMONO) 0.8 K/cumm 0.0-1.2 Eos Abs (test code=AEOS) 0.09 K/cumm 0.00-0.74 Baso Abs (test code=ABASO) 0.0 K/cumm 0.00-0.21 CBC with [id number] 10:15:00 Test Item Value Reference Range Comments [...] Lymph Abs (test code=ALYMPH) 2.4 K/cumm 0.5-4.6 Scurry Abs (test code=AMONO) 0.6 K/cumm 0.0-1.2 Eos Abs (test code=AEOS) 0.09 K/cumm 0.00-0.74 Baso Abs (test code=ABASO) 0.1 K/cumm 0.00-0.21 RPR, [id number] 10:10:00 Test Item Value Reference Range Comments RPR (test code=RPR) Non-Reactive Non-Reactive Thyroid Stimulating Hormone (TSH)2016-09-05 09:52:00 Test Item Value Reference Range Comments TSH (test code=TSH) 2.86 mIU/mL 0.270-4.200 Lipid [id number] 09:44:00 Test Item Value Reference Range Comments Cholesterol (test 106 mg/dL 0-200 code=CHOL) Triglycerides (test 167 mg/dL 9-200 code=TRIG) HDL (test code=HDL) 25 mg/dL 40-60 Chol/HDL (test 4.2 Ratio 0.0-5.0 code=CHOLPHDL) LDL, Calculated (test 48 0-130 (NOTE)RISK OF HEART code=LDLC) DISEASEPublished by Citizen [place] Heart AssociationAnalyte Optimal Boderline Increased RiskCHOL <200 200-239 >240TRIG <150 150-199 >200HDL Male: >60 <40HDL Female: >60 <50LDL <100 130-159 >160LDL NEAR OPTIMAL IS 100-129 VLDL (test code=VLDL) 33 mg/dL 5-40 LDL/HDL (test code=LDLPHDL) 2 Valproic Acid (Depakote),[id number] 09:44:00 Test Item Value Reference Range Comments Valproic Acid (test code=VALP) 62.7 ug/mL 50.0-100.0 Comprehensive Metabolic [id number] 09:44:00 Test Item Value Reference Range Comments [...] race is not provided, and the patient isAfrican-Citizen [place], multiply by 1.212. If sex is not [...] the National Kidney Foundation,http://nkdep.nih .gov Comprehensive Metabolic [id number] 03:26:00 Test Item Value Reference Range Comments [...] race is not provided, and the patient isAfrican[place]Citizen [place], multiply by 1.212. If sex is not provided, and thepatient is female, multiply by 0.742. Results for patients <18 years ofage have not been validated by the MDRD study and should be interpretedwith caution.eGFR Result Interpretation:eGFR > or=60 is in the Normal RangeeGFR < 60 may mean kidney diseaseeGFR < 15 may mean kidney failureRanges recommended by the National Kidney Foundation,http://nkdep.nih .gov [id number] 03:06:00 Test Item Value Reference Range Comments [...] Urine (test <0.01 g/dL 0.00-0.01 code=ETOHU) Troponin [id number] 03:06:00 Test Item Value Reference Range Comments Troponin T (test code=SHAMIKA) <0.010 ng/mL 0.000-0.090 Urinalysis [id number] 02:57:00 Test Item Value Reference Range Comments Color (test code=COLOR) Yellow Yellow,Straw,Pl yellow Clarity (test code=CLAR) Clear Clear Specific [place] (test 1.028 1.001-1.035 code=SPGR) pH (test code=PH) [...] code=DERRICK) Few Calcium Oxalate /HPF CBC with [id number] 02:43:00 Test Item Value Reference Range Comments [...] Lymph Abs (test code=ALYMPH) 2.5 K/cumm 0.5-4.6 Scurry Abs (test code=AMONO) 0.6 K/cumm 0.0-1.2 Eos Abs (test code=AEOS) 0.13 K/cumm 0.00-0.74 Baso Abs (test code=ABASO) 0.0 K/cumm 0.00-0.21 Valproic Acid (Depakote),[id number] 07:46:00 Test Item Value Reference Range Comments Valproic Acid (test code=VALP) 63.2 ug/mL 50.0-100.0 POC Glucose, [id number] 19:39:00 Test Item Value Reference Range Comments POC Glucose (test 204 mg/dL 70-115 If you consider your patient code=POCGLUC) critically ill, the Ismael Accu-Chek InformII metershould not be used for Glucose determinations.Draw a venous Glucose and send to the Main Lab for Analysis. Comprehensive Metabolic [id number] 05:27:00 Test Item Value Reference Range Comments [...] race is not provided, and the patient isAfrican[place]Citizen [place], multiply by 1.212. If sex is not provided, and thepatient is female, multiply by 0.742. Results for patients <18 years ofage have not been validated by the MDRD study and should be interpretedwith caution.eGFR Result Interpretation:eGFR > or=60 is in the Normal RangeeGFR < 60 may mean kidney diseaseeGFR < 15 may mean kidney failureRanges recommended by the National Kidney Foundation,http://nkdep.nih .gov [id number] 05:27:00 Test Item Value Reference Range Comments [...] (test <0.01 g/dL 0.00-0.01 code=ETOHU) CBC with [id number] 05:08:00 Test Item Value Reference Range Comments [...] Lymph Abs (test code=ALYMPH) 2.8 K/cumm 0.5-4.6 Scurry Abs (test code=AMONO) 0.6 K/cumm 0.0-1.2 Eos Abs (test code=AEOS) 0.12 K/cumm 0.00-0.74 Baso Abs (test code=ABASO) 0.1 K/cumm 0.00-0.21 Urinalysis [id number] 05:07:00 Test Item Value Reference Range Comments Color (test code=COLOR) Straw Yellow,Straw,Pl yellow Clarity (test code=CLAR) Clear Clear Specific [place] (test code=SPGR) 1.005 1.001-1.035 pH (test code=PH) [...]
--- NOTE | 2018-12-25 17:28 | ER ---
Nurse's Notes [facility] Name: Bereket Gardner Age: 43 yrs Sex: Male : 1975 Arrival Date: 12/25/2018 Time: 17:13 Bed Treatment Private MD: Diagnosis: Musculoskeletal pain;Person with feared health complaint in whom no diagnosis is made Presentation: 12/25 17:15 Presenting complaint: Patient states: hurt his right ankle while stepping off a median. iw Transition of care: patient was not received from another setting of care. Onset of symptoms was December 25, 2018. Risk Assessment: Do you want to hurt yourself or someone else? Patient reports no desire to harm self or others. Initial Sepsis Screen: Does the patient meet any 2 criteria? No. Patient's initial sepsis screen is negative. Does the patient have a suspected source of infection? No. Patient's initial sepsis screen is negative. Care prior to arrival: None. 17:15 Method Of Arrival: EMS: [facility] iw 17:15 Acuity: ARIA 4 iw Triage Assessment: 17:15 General: Appears in no apparent distress. Behavior is calm. iw Historical: - Allergies: 17:16 Aspirin; iw 17:16 Ibuprofen; iw - PMHx: 17:16 Anemia; Anxiety; Bipolar disorder; enlarged heart and liver; High Cholesterol; iw Hypertension; Schizophrenia; - PSHx: 17:16 Cholecystectomy; iw - Immunization history:: Adult Immunizations not up to date. - Social history:: Smoking status: Patient uses tobacco products, denies chronic smoking, but will smoke occasionally. - Ebola Screening: : Patient negative for fever greater than or equal to 101.5 degrees Fahrenheit, and additional compatible Ebola Virus Disease symptoms Patient denies exposure to infectious person Patient denies travel to an Ebola-affected area in the 21 days before illness onset No symptoms or risks identified at this time. Screenin:22 Abuse screen: Denies threats or abuse. Denies injuries from another. Nutritional iw screening: No deficits noted. Tuberculosis screening: No symptoms or risk factors identified. Fall Risk None identified. Assessment: 17:15 General: Appears in no apparent distress. comfortable. Pain: Complains of pain in right iw foot. Neuro: Level of Consciousness is awake, alert, obeys commands, Oriented to person, place, time, situation, Moves all extremities. Full function. Cardiovascular: Patient's skin is warm and dry. Respiratory: Airway is patent. GI: No signs and/or symptoms were reported involving the gastrointestinal system. Derm: Skin is intact, is healthy with good turgor. Musculoskeletal: Range of motion: intact in all extremities. Vital Signs: 17:23 BP 120 / 72; Pulse 74; Resp 16; Temp 98.2; Pulse Ox 100% on R/A; iw ED Course: 17:13 Patient arrived in ED. iw 17:15 Patient has correct armband on for positive identification. iw 17:16 Triage completed. iw 17:16 Arm band placed on. iw 17:27 Dayan Wills FNP-C is PHCP. snw 17:27 Sajan Goldman MD is Attending Physician. snw 17:34 No provider procedures requiring assistance completed. Patient did not have IV access iw during this emergency room visit. 17:35 Nan Lorenzo, RN is Primary Nurse. iw Administered Medications: No medications were administered Outcome: 17:27 Discharge ordered by . snw 17:34 Discharged to home ambulatory. iw 17:34 Condition: good 17:34 Discharge instructions given to patient, Instructed on discharge instructions, follow up and referral plans. Demonstrated understanding of instructions, follow-up care. 17:35 Patient left the ED. iw Signatures: Dayan Wills FNP-C DUCT MAKER-Csnw Nan Lorenzo, RN RN iw
--- NOTE | 2018-12-25 17:28 | EDPHYS ---
Physician Documentation [facility] Name: Bereket Gardner Age: 43 yrs Sex: Male : 1975 Arrival Date: 12/25/2018 Time: 17:13 Bed Treatment Private MD: ED Physician Sajan Goldman HPI: 12/25 17:36 This 43 yrs old Male presents to ER via EMS with complaints of Ankle Injury. snw 17:36 The patient presents with an injury, pain, swelling. The complaints affect the left snw ankle. Onset: The symptoms/episode began/occurred suddenly, just prior to arrival. Context: The problem was sustained outdoors. Severity of symptoms: At their worst the symptoms were moderate. It is unknown whether or not the patient has had similar symptoms in the past. The patient has been recently seen by a physician: The patient has been recently seen at the [facility] Emergency Department, yesterday, for unrelated complaints, yesterday pt presented to ED post "chest injury", states he fell. Pt discharged from ED and then called multiple times to offer to cover Dr. Dumont's shift. Historical: - Allergies: 17:16 Aspirin; iw 17:16 Ibuprofen; iw - PMHx: 17:16 Anemia; Anxiety; Bipolar disorder; enlarged heart and liver; High Cholesterol; iw Hypertension; Schizophrenia; - PSHx: 17:16 Cholecystectomy; iw - Immunization history:: Adult Immunizations not up to date. - Social history:: Smoking status: Patient uses tobacco products, denies chronic smoking, but will smoke occasionally. - Ebola Screening: : Patient negative for fever greater than or equal to 101.5 degrees Fahrenheit, and additional compatible Ebola Virus Disease symptoms Patient denies exposure to infectious person Patient denies travel to an Ebola-affected area in the 21 days before illness onset No symptoms or risks identified at this time. ROS: 17:36 Constitutional: Negative for fever, chills, and weight loss, Eyes: Negative for injury, snw pain, redness, and discharge, ENT: Negative for injury, pain, and discharge, Neck: Negative for injury, pain, and swelling, Cardiovascular: Negative for chest pain, palpitations, and edema, Respiratory: Negative for shortness of breath, cough, wheezing, and pleuritic chest pain, Abdomen/GI: Negative for abdominal pain, nausea, vomiting, diarrhea, and constipation, Back: Negative for injury and pain, : Negative for injury, bleeding, discharge, and swelling, Skin: Negative for injury, rash, and discoloration, Neuro: Negative for headache, weakness, numbness, tingling, and seizure. 17:36 MS/extremity: Positive for injury or acute deformity, decreased range of motion, pain. Exam: 17:31 Head/Face: Normocephalic, atraumatic. Eyes: Pupils equal round and reactive to light, snw extra-ocular motions intact. Lids and lashes normal. Conjunctiva and sclera are non-icteric and not injected. Cornea within normal limits. Periorbital areas with no swelling, redness, or edema. ENT: Nares patent. No nasal discharge, no septal abnormalities noted. Tympanic membranes are normal and external auditory canals are clear. Oropharynx with no redness, swelling, or masses, exudates, or evidence of obstruction, uvula midline. Mucous membranes moist. Neck: Trachea midline, no thyromegaly or masses palpated, and no cervical lymphadenopathy. Supple, full range of motion without nuchal rigidity, or vertebral point tenderness. No Meningismus. Chest/axilla: Normal chest wall appearance and motion. Nontender with no deformity. No lesions are appreciated. Cardiovascular: Regular rate and rhythm with a normal S1 and S2. No gallops, murmurs, or rubs. Normal PMI, no JVD. No pulse deficits. Respiratory: Lungs have equal breath sounds bilaterally, clear to auscultation and percussion. No rales, rhonchi or wheezes noted. No increased work of breathing, no retractions or nasal flaring. Abdomen/GI: Soft, non-tender, with normal bowel sounds. No distension or tympany. No guarding or rebound. No evidence of tenderness throughout. Back: No spinal tenderness. No costovertebral tenderness. Full range of motion. Skin: Warm, dry with normal turgor. Normal color with no rashes, no lesions, and no evidence of cellulitis. MS/ Extremity: Pulses equal, no cyanosis. Neurovascular intact. Full, normal range of motion. Neuro: Awake and alert, GCS 15, oriented to person, place, time, and situation. Cranial nerves II-XII grossly intact. Motor strength 5/5 in all extremities. Sensory grossly intact. Cerebellar exam normal. Normal gait. 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 Pt states he has foot/ankle swelling but is ambulating all over ED without diff. When observation of ambulation discussed with pt for no need for x-ray, pt states he is paralysed from the waist down. 17:31 Psych: as noted above.. Vital Signs: 17:23 BP 120 / 72; Pulse 74; Resp 16; Temp 98.2; Pulse Ox 100% on R/A; iw MDM: 17:27 Patient medically screened. snw Administered Medications: No medications were administered Disposition: 12/25/18 17:27 Discharged to Home. Impression: Musculoskeletal pain, Person with feared health complaint in whom no diagnosis is made. - Condition is Stable. - Discharge Instructions: Musculoskeletal Pain, RICE for Routine Care of Injuries, Heat Therapy. - Medication Reconciliation Form, Thank You Letter, Antibiotic Education, Prescription Opioid Use form. - Follow up: Private Physician; When: 2 - 3 days; Reason: Recheck today's complaints, Continuance of care, Re-evaluation by your physician. Follow up: Emergency Department; When: As needed; Reason: Worsening of condition. Addendum: 12/28/2018 09:25 Co-signature as Attending Physician, Sajan Goldman MD I agree with the assessment and k dr plan of care. Signatures: Sajan Goldman MD MD [facility] Dayan Wills, CUTTING ROOM SUPERVISOR-C CUTTING ROOM SUPERVISOR-Csnw Nan Lorenzo RN RN iw Corrections: (The following items were deleted from the chart) 12/25 17:28 17:27 12/25/2018 17:27 Discharged to Home. Impression: Musculoskeletal pain. Condition snw is Stable. Forms are Medication Reconciliation Form, Thank You Letter, Antibiotic Education, Prescription Opioid Use. Follow up: Private Physician; When: 2 - 3 days; Reason: Recheck today's complaints, Continuance of care, Re-evaluation by your physician. Follow up: Emergency Department; When: As needed; Reason: Worsening of condition. snw 17:35 17:28 12/25/2018 17:27 Discharged to Home. Impression: Musculoskeletal pain; Person iw with feared health complaint in whom no diagnosis is made. Condition is Stable. Discharge Instructions: Musculoskeletal Pain, RICE for Routine Care of Injuries, Heat Therapy. Forms are Medication Reconciliation Form, Thank You Letter, Antibiotic Education, Prescription Opioid Use. Follow up: Private Physician; When: 2 - 3 days; Reason: Recheck today's complaints, Continuance of care, Re-evaluation by your physician. Follow up: Emergency Department; When: As needed; Reason: Worsening of condition. snw
[2018-12-25 18:30] VITALS: BP 120/72; TEMP 98.2; O2SAT 100
== END 2018-12-25 17:35 | disposition home or self-care (01) ==
LOC: ER 17:10
DX: Z71.1 Person with feared health complaint in whom no diagnosis is made (principal); I10 Essential (primary) hypertension; F20.9 Schizophrenia, unspecified; Z72.0 Tobacco use; Z88.6 Allergy status to analgesic agent
CPT/HCPCS: 99283

== ENCOUNTER 2018-12-25 21:24 | Emergency (ER) | payer OTHER ==
--- OUTSIDE RECORDS SUMMARY | 2018-12-25 21:28 | XMS REPORT ---
:1975 [facility] Address [address] [place] [address] [address]. [address] [place] [address] Care Team Providers Name Role Phone MADELEINE [...] Acid (test code=VALP) 77.4 ug/mL 50.0-100.0 RPR, [id number] 12:49:00 Test Item Value Reference Range Comments RPR (test code=RPR) Non-Reactive Non-Reactive Thyroid Stimulating Hormone (TSH)2016-10-01 07:49:00 Test Item Value Reference Range Comments TSH (test code=TSH) 6.31 mIU/mL 0.270-4.200 Lipid [id number] 07:41:00 Test Item Value Reference Range Comments Cholesterol (test 162 mg/dL 0-200 code=CHOL) Triglycerides (test 231 mg/dL 9-200 code=TRIG) HDL (test code=HDL) 36 mg/dL 40-60 Chol/HDL (test 4.5 Ratio 0.0-5.0 code=CHOLPHDL) LDL, Calculated (test 80 0-130 (NOTE)RISK OF HEART code=LDLC) DISEASEPublished by Maldiv[place] Heart AssociationAnalyte Optimal Boderline Increased RiskCHOL <200 200-239 >240TRIG <150 150-199 >200HDL Male: >60 <40HDL Female: >60 <50LDL <100 130-159 >160LDL NEAR OPTIMAL IS 100-129 VLDL (test code=VLDL) 46 mg/dL 5-40 LDL/HDL (test code=LDLPHDL) 2 [id number] 05:39:00 Test Item Value Reference Range Comments [...] Urine (test <0.01 g/dL 0.00-0.01 code=ETOHU) Alcohol/Ethanol, [id number] 05:31:00 Test Item Value Reference Range Comments Alcohol, Ethyl (test <0.01 g/dL 0.00-0.01 Intoxicated 0.080 g/dL or code=ETOH) more Comprehensive Metabolic [id number] 05:31:00 Test Item Value Reference Range Comments [...] race is not provided, and the patient isAfrican-Maldivian, multiply by 1.212. If sex is not provided, and thepatient is female, multiply by 0.742. Results for patients <18 years ofage have not been validated by the MDRD study and should be interpretedwith caution.eGFR Result Interpretation:eGFR > or=60 is in the Normal RangeeGFR < 60 may mean kidney diseaseeGFR < 15 may mean kidney failureRanges recommended by the National Kidney Foundation,http://nkdep.nih .gov Urinalysis [id number] 05:30:00 Test Item Value Reference Range Comments Color (test code=COLOR) Yellow Yellow,Straw,Pl yellow Clarity (test code=CLAR) Clear Clear Specific [place] (test code=SPGR) 1.006 1.001-1.035 pH (test code=PH) [...] Exam (test code=MEXAM) Not indicated CBC with [id number] 05:19:00 Test Item Value Reference Range Comments [...] Lymph Abs (test code=ALYMPH) 1.7 K/cumm 0.5-4.6 [place] Abs (test code=AMONO) 0.8 K/cumm 0.0-1.2 Eos Abs (test code=AEOS) 0.09 K/cumm 0.00-0.74 Baso Abs (test code=ABASO) 0.0 K/cumm 0.00-0.21 CBC with [id number] 10:15:00 Test Item Value Reference Range Comments [...] Lymph Abs (test code=ALYMPH) 2.4 K/cumm 0.5-4.6 [place] Abs (test code=AMONO) 0.6 K/cumm 0.0-1.2 Eos Abs (test code=AEOS) 0.09 K/cumm 0.00-0.74 Baso Abs (test code=ABASO) 0.1 K/cumm 0.00-0.21 RPR, [id number] 10:10:00 Test Item Value Reference Range Comments RPR (test code=RPR) Non-Reactive Non-Reactive Thyroid Stimulating Hormone (TSH)2016-09-05 09:52:00 Test Item Value Reference Range Comments TSH (test code=TSH) 2.86 mIU/mL 0.270-4.200 Lipid [id number] 09:44:00 Test Item Value Reference Range Comments Cholesterol (test 106 mg/dL 0-200 code=CHOL) Triglycerides (test 167 mg/dL 9-200 code=TRIG) HDL (test code=HDL) 25 mg/dL 40-60 Chol/HDL (test 4.2 Ratio 0.0-5.0 code=CHOLPHDL) LDL, Calculated (test 48 0-130 (NOTE)RISK OF HEART code=LDLC) DISEASEPublished by [place] Heart AssociationAnalyte Optimal Boderline Increased RiskCHOL <200 200-239 >240TRIG <150 150-199 >200HDL Male: >60 <40HDL Female: >60 <50LDL <100 130-159 >160LDL NEAR OPTIMAL IS 100-129 VLDL (test code=VLDL) 33 mg/dL 5-40 LDL/HDL (test code=LDLPHDL) 2 Valproic Acid (Depakote),[id number] 09:44:00 Test Item Value Reference Range Comments Valproic Acid (test code=VALP) 62.7 ug/mL 50.0-100.0 Comprehensive Metabolic [id number] 09:44:00 Test Item Value Reference Range Comments [...] race is not provided, and the patient isAfrican-Maldivian, multiply by 1.212. If sex is not [...] the National Kidney Foundation,http://nkdep.nih .gov Comprehensive Metabolic [id number] 03:26:00 Test Item Value Reference Range Comments [...] race is not provided, and the patient isAfrican-Maldivian, multiply by 1.212. If sex is not provided, and thepatient is female, multiply by 0.742. Results for patients <18 years ofage have not been validated by the MDRD study and should be interpretedwith caution.eGFR Result Interpretation:eGFR > or=60 is in the Normal RangeeGFR < 60 may mean kidney diseaseeGFR < 15 may mean kidney failureRanges recommended by the National Kidney Foundation,http://nkdep.nih .gov [id number] 03:06:00 Test Item Value Reference Range Comments [...] Urine (test <0.01 g/dL 0.00-0.01 code=ETOHU) Troponin [id number] 03:06:00 Test Item Value Reference Range Comments Troponin T (test code=SHAMIKA) <0.010 ng/mL 0.000-0.090 Urinalysis [id number] 02:57:00 Test Item Value Reference Range Comments Color (test code=COLOR) Yellow Yellow,Straw,Pl yellow Clarity (test code=CLAR) Clear Clear Specific [place] (test 1.028 1.001-1.035 code=SPGR) pH (test code=PH) [...] code=DERRICK) Few Calcium Oxalate /HPF CBC with [id number] 02:43:00 Test Item Value Reference Range Comments [...] Lymph Abs (test code=ALYMPH) 2.5 K/cumm 0.5-4.6 [place] Abs (test code=AMONO) 0.6 K/cumm 0.0-1.2 Eos Abs (test code=AEOS) 0.13 K/cumm 0.00-0.74 Baso Abs (test code=ABASO) 0.0 K/cumm 0.00-0.21 Valproic Acid (Depakote),[id number] 07:46:00 Test Item Value Reference Range Comments Valproic Acid (test code=VALP) 63.2 ug/mL 50.0-100.0 POC Glucose, [id number] 19:39:00 Test Item Value Reference Range Comments POC Glucose (test 204 mg/dL 70-115 If you consider your patient code=POCGLUC) critically ill, the Ismael Accu-Chek InformII metershould not be used for Glucose determinations.Draw a venous Glucose and send to the Main Lab for Analysis. Comprehensive Metabolic [id number] 05:27:00 Test Item Value Reference Range Comments [...] race is not provided, and the patient isAfrican-Maldivian, multiply by 1.212. If sex is not provided, and thepatient is female, multiply by 0.742. Results for patients <18 years ofage have not been validated by the MDRD study and should be interpretedwith caution.eGFR Result Interpretation:eGFR > or=60 is in the Normal RangeeGFR < 60 may mean kidney diseaseeGFR < 15 may mean kidney failureRanges recommended by the National Kidney Foundation,http://nkdep.nih .gov [id number] 05:27:00 Test Item Value Reference Range Comments [...] (test <0.01 g/dL 0.00-0.01 code=ETOHU) CBC with [id number] 05:08:00 Test Item Value Reference Range Comments [...] Lymph Abs (test code=ALYMPH) 2.8 K/cumm 0.5-4.6 [place] Abs (test code=AMONO) 0.6 K/cumm 0.0-1.2 Eos Abs (test code=AEOS) 0.12 K/cumm 0.00-0.74 Baso Abs (test code=ABASO) 0.1 K/cumm 0.00-0.21 Urinalysis [id number] 05:07:00 Test Item Value Reference Range Comments Color (test code=COLOR) Straw Yellow,Straw,Pl yellow Clarity (test code=CLAR) Clear Clear Specific [place] (test code=SPGR) 1.005 1.001-1.035 pH (test code=PH) [...]
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
[2018-12-26 01:36] VITALS: TEMP 98.5
[2018-12-26 02:05] VITALS: BP 113/62; O2SAT 99
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
== END 2018-12-26 00:54 | disposition home or self-care (01) ==
LOC: ER 21:24
DX: S80.02XA Contusion of left knee, initial encounter (principal); S80.01XA Contusion of right knee, initial encounter; S80.12XA Contusion of left lower leg, initial encounter; S80.11XA Contusion of right lower leg, initial encounter; S90.32XA Contusion of left foot, initial encounter; S90.31XA Contusion of right foot, initial encounter; V03.90XA Pedestrian on foot injured in collision with car, pick-up truck or van, unspecified whether traffic or nontraffic accident, initial encounter; D64.9 Anemia, unspecified; F41.9 Anxiety disorder, unspecified; F31.9 Bipolar disorder, unspecified; E78.00 Pure hypercholesterolemia, unspecified; I10 Essential (primary) hypertension; F20.9 Schizophrenia, unspecified; Z72.0 Tobacco use; Z88.6 Allergy status to analgesic agent
CPT/HCPCS: 99284